=== PATIENT | male | born 1970 | race African-American/Black ===

== ENCOUNTER 2019-03-13 20:32 | Inpatient (IN) | payer MEDICAID, OTHER ==
[~2019-03-13] VITALS: Ht 177.8 cm; Wt 126.7 kg
[~2019-03-13 20:32] MED LIST: ABILIFY5 MG ORAL; ASACOL HD800 MG ORAL; FLAGYL500 MG ORAL; FOLIC ACID1 MG ORAL; HALDOL5 MG ORAL; LISINOPRIL10 MG ORAL; MONTELUKAST SOD10 MG ORAL; PANTOPRAZOLE SO40 MG ORAL; PREDNISONE20 M1 PO; PREDNISONE20 MG ORAL; QUETIAPINE FUMA50 MG ORAL; SULFASALAZINE500 MG ORAL
[2019-03-13 20:35] VITALS: BP 126/74
--- NOTE | 2019-03-13 20:37 | NUR ---
ED Nurse Note: Patient was BIBA from home due to abdominal pain, N/V/D. Per patient she was vomiting blood X 3 days, and blood in her stool X 3 days. AAO x4, anxious, VSS at this time, skin is dry, warm to touch.
--- NOTE | 2019-03-13 21:05 | NUR ---
ED Nurse Note: External Jugular line was placed by Dr. Alvarez on the left side, patient tolerated procedure well.
--- NOTE | 2019-03-13 21:12 | Emergency Room Report ---
History of Present Illness General Chief Complaint: Abdominal Pain Source: Patient Present Illness HPI This is a 48-year-old male with a history of Crohn disease. He also has previous laparotomy and bowel resection. He presents with chief complaint of abdominal pain and also with rectal bleeding. This is a chronic issue. He said he has fistula that required surgery before. Complain of generalized abdominal pain. Pain is 10 out of 10. No fever chills but has nausea and vomiting. Denies any trauma. Similar to previous exacerbation. Allergies: Coded Allergies: MORPHINE (Verified Allergy, Unknown, 04/29/16) PROCHLORPERAZINE (Verified Allergy, Unknown, 04/29/16) Patient History Past Medical History: see triage record, old chart reviewed Past Surgical History: other Pertinent Family History: none Social History: Denies: smoking Immunizations: other Reviewed Nursing Documentation: PMH: Agreed; PSxH: Agreed Nursing Documentation-PMH Hx Cardiac Problems: No - Hx of Cdiff (04/03/16) Hx Hypertension: Yes Hx Gastrointestinal Problems: Yes - CROHNS DISEASE Review of Systems Eye: Denies: eye pain, blurred vision ENT: Denies: ear pain, nose congestion, throat swelling Respiratory: Denies: cough, shortness of breath Cardiovascular: Denies: chest pain, palpitations Gastrointestinal: Reports: abdominal pain, nausea, vomiting; Denies: diarrhea Musculoskeletal: Denies: back pain, joint pain Skin: Denies: rash Neurological: Denies: headache, numbness Endocrine: Denies: increased thirst, increased urine Hematologic/Lymphatic: Denies: easy bruising All Other Systems: negative except mentioned in HPI Physical Exam Vital Signs Date Time Temp Pulse Resp B/P (MAP) Pulse Ox O2 Delivery O2 Flow Rate FiO2 03/13/19 20:19 98.2 115 16 126/74 (91) 98 Room Air Vitals with tachycardia Sp02 EP Interpretation: reviewed, normal General Appearance: well appearing, no apparent distress, alert Head: normocephalic, atraumatic Eyes: bilateral eye PERRL, bilateral eye EOMI ENT: hearing grossly normal, normal pharynx Neck: full range of motion, supple, no meningismus Respiratory: chest non-tender, lungs clear, normal breath sounds Cardiovascular #1: regular rate, rhythm, no murmur Gastrointestinal: normal bowel sounds, no mass, no organomegaly, no bruit, non- distended, tenderness - Soft but diffuse tenderness Musculoskeletal: back normal, gait/station normal, normal range of motion Psychiatric: mood/affect normal Skin: warm/dry Medical Decision Making Diagnostic Impression: Primary Impression: Crohns disease Qualified Codes: K50.911 - Crohn's disease, unspecified, with rectal bleeding ER Course Patient presents with abdominal pain with Crohn's exacerbation. He claimed that he has hematuria and rectal bleeding. He had history of fistula. CT scan unremarkable. Labs unremarkable except sodium. Patient given IV hydration. Suspect drug-seeking behavior. He has a history of cocaine abuse. Patient will be admitted for IV hydration and pain control. I discussed the case with Dr. Bullock who knows patient from previous admission at the hospitals. CT/MRI/US Diagnostic Results CT/MRI/US Diagnostic Results : Imaging Test Ordered: CT abdomen pelvis Impression Read by radiologist. No acute process. Last Vital Signs Date Time Temp Pulse Resp B/P (MAP) Pulse Ox O2 Delivery O2 Flow Rate FiO2 03/13/19 20:35 115 16 Room Air 03/13/19 20:35 98.2 126/74 98 Status: improved Disposition: ADMITTED INPATIENT Condition: Serious Jose Guadalupe Alvarez MD Mar 13, 2019 21:12
[2019-03-13] MEDS ORDERED: Solu-MEDROL 125mg Inj IVP ONE (21:15)
[2019-03-13] MEDS ORDERED: HYDROmorphone 1mg/ml Carpuject IVP ONE (21:45)
[2019-03-13 21:47] LABS: APPEARANCE,URINE CLOUDY; BILIRUBIN, URINE NEGATIVE (NEGATIVE); GLUCOSE, URINE (UA) NEGATIVE (NEGATIVE); KETONES,URINE NEGATIVE (NEGATIVE); LEUKOCYTE ESTERASE ,URINE 1+ (NEGATIVE); NITRITE,URINE NEGATIVE (NEGATIVE); PH,URINE 5 (4.5-8.0); PROTEIN,URINE 1+ (NEGATIVE); UROBILINOGEN,URINE NORMAL MG/DL (0.0-1.0)
[2019-03-13 21:48] LABS: COLOR,URINE YELLOW
[2019-03-13 21:59] LABS: BASOPHILS % (AUTO) 1.1 % (0.0-2.0); EOSINOPHILS % (AUTO) 2.4 % (0.0-3.0); HEMOGLOBIN 11.3 G/DL (14.2-18.0); LYMPHOCYTES % (AUTO) 22.9 % (20.0-45.0); MEAN CORPUSCULAR VOLUME 94 FL (80-99); MONOCYTES % (AUTO) 9.1 % (1.0-10.0); NEUTROPHILS % (AUTO) 64.5 % (45.0-75.0); PLATELET COUNT 267 K/UL (150-450); RED BLOOD COUNT 3.51 M/UL (4.70-6.10); RED CELL DISTRIBUTION WIDTH 11.8 % (11.6-14.8); WHITE BLOOD COUNT 10.5 K/UL (4.8-10.8)
[2019-03-13] MEDS ORDERED: Ertapenem 1 GM in NS 55 ML IV ONE (22:00)
[2019-03-13 22:06] LABS: ANION GAP 8 mmol/L (5-15); BLOOD UREA NITROGEN 16 mg/dL (7-18); CALCIUM 9.3 MG/DL (8.5-10.1); CARBON DIOXIDE 30 MMOL/L (21-32); CHLORIDE 110 MMOL/L (98-107); CREATININE 1.1 MG/DL (0.55-1.30); POTASSIUM 3.9 MMOL/L (3.5-5.1); SODIUM 148 MMOL/L (136-145)
[2019-03-13 22:11] LABS: ALANINE AMINOTRANSFERASE 31 U/L (12-78); ALBUMIN 3.3 G/DL (3.4-5.0); ALBUMIN/GLOBULIN RATIO 0.7 (1.0-2.7); ALKALINE PHOSPHATASE 63 U/L (46-116); ASPARTATE AMINO TRANSFERASE 16 U/L (15-37); BILIRUBIN,TOTAL 0.3 MG/DL (0.2-1.0)
[2019-03-13] MEDS ORDERED: DiphenhydrAMINE 50mg/ml Inj IVP ONE (22:15)
[2019-03-13 22:42] VITALS: BP 135/76
[2019-03-13] MEDS ORDERED: Ketorolac 30mg Inj IV ONE (23:30)
[2019-03-13 23:55] VITALS: BP 140/75
--- NOTE | 2019-03-13 23:55 | NUR ---
ED Nurse Note: Patient was admited to [facility] due to Crohn's exaserbation. AAO x4, VSS at this time, skin is intact warm to touch. Patient was transfered via gurney, with all belongings.
[2019-03-14 00:10] VITALS: BP 120/81
[2019-03-14] MEDS: HYDROmorphone 1mg/ml Carpuject IVP PRN ×6 (01:13→21:16)
[2019-03-14 04:02] VITALS: BP 122/74
--- NOTE | 2019-03-14 07:20 | NUR ---
HAND-OFF: Report given to Nikki Thrasher RN.
--- NOTE | 2019-03-14 07:30 | NUR ---
NURSE NOTES: Received pt from STEVE GALARZA. Pt is alert and orient x4. Pt is in RA, No SOB or acute respiratory distress noted. pt has intact iv access LEJ 18G SL. pt consumed 100% of breakfast and tolerate well. All needs attended, bed is locked and is in the lowest position. call light within easy reach. will continue to monitor.
[2019-03-14 08:00] VITALS: BP 149/93
[2019-03-14] MEDS: Lisinopril 10mg tab ORAL SCH (08:32)
[2019-03-14] MEDS: SulfASALAZine 500MG tab ORAL SCH ×3 (09:09→17:15)
--- NOTE | 2019-03-14 10:12 | Diagnostic Imaging Report ---
Indication: Abdominal pain Technique: Continuous helical transaxial imaging of the abdomen and pelvis was obtained from the lung bases to the pubic symphysis. No intravenous contrast was administered. Coronal 2-D reformats were also obtained. Automatic Exposure Control was utilized. Total Dose length Product (DLP): 1076.[address] Dose Index Volume (CTDIvol): 19.28 mGy Comparison: none Findings: Lung bases are clear. The left kidney is atrophic. 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 There is no hydronephrosis. Hypodensities in the left kidney are nonspecific but probably cystic. Gallbladder is noted. There is a tiny hernia in the anterior abdominal wall containing small bowel above the umbilicus. Previous surgery and rectosigmoid resection noted. Mild distended loop of bowel noted in the lower abdomen and pelvis probably representing a loop of small bowel which is also been partially resected. There is evidence of a left adrenal mass measuring about 1.5 cm. This is low-density and probably an adenoma. IMPRESSION: No acute findings appreciated. Evidence of previous partial small and large bowel resection. No evidence of bowel obstruction, abscess or other acute pathology. Small left adrenal mass likely adenoma. This may be confirmed on MRI. Atrophic left kidney with suggestion of multiple cysts. This may be confirmed or further evaluated with ultrasound. Slightly malrotated right kidney. Tiny supraumbilical hernia containing small bowel. [facility] has communicated the preliminary results to the Emergency Department. Their findings are largely concordant with this report. The CT scanner at [facility] is accredited by the [employer] and the scans are performed using dose optimization techniques as appropriate to a performed exam including Automatic Exposure control.
--- NOTE | 2019-03-14 11:28 | General Progress Note ---
Assessment/Plan Problem List: (1) C. difficile colitis ICD Codes: A04.72 - Enterocolitis due to Clostridium difficile, not specified as recurrent SNOMED: 026363452 (2) Crohns disease ICD Codes: K50.90 - Crohn's disease, unspecified, without complications SNOMED: 70360838 Qualifiers: Qualified Codes: K50.911 - Crohn's disease, unspecified, with rectal bleeding (3) Substance abuse ICD Codes: F19.10 - Other psychoactive substance abuse, uncomplicated SNOMED: 33536643 Assessment/Plan: ? h/o TB start steroids ESR/CRP iron panel fu labs Subjective ROS Limited/Unobtainable: Yes Allergies: Coded Allergies: MORPHINE (Verified Allergy, Unknown, 04/29/16) PROCHLORPERAZINE (Verified Allergy, Unknown, 04/29/16) Objective Last 24 Hour Vital Signs Date Time Temp Pulse Resp B/P (MAP) Pulse Ox O2 Delivery O2 Flow Rate FiO2 03/14/19 09:40 97.6 03/14/19 09:00 Room Air 03/14/19 08:32 149/93 03/14/19 08:00 97.6 92 20 149/93 (111) 96 03/14/19 04:02 98.0 100 18 122/74 (90) 99 03/14/19 00:15 Room Air 03/14/19 00:10 97.4 106 18 120/81 (94) 97 03/13/19 23:55 98.2 82 16 140/75 98 Room Air 03/13/19 23:55 98.2 82 16 140/75 98 Room Air 03/13/19 23:50 98.2 03/13/19 22:42 98.2 87 16 135/76 98 Room Air 03/13/19 22:25 98.2 03/13/19 20:35 115 16 Room Air 03/13/19 20:35 98.2 16 126/74 98 Room Air 03/13/19 20:19 98.2 115 16 126/74 (91) 98 Room Air Intake and Output 03/13/19 03/14/19 19:00 07:00 # Voids 3 Laboratory Tests 03/13/19 21:35: Urine Color Yellow, Urine Appearance Cloudy, Urine pH 5, Urine Specific [place] 1.015, Urine Protein 1+H, Urine Glucose (UA) Negative, Urine Ketones Negative, Urine Blood 5+H, Urine Nitrite Negative, Urine Bilirubin Negative, Urine Urobilinogen Normal, Urine Leukocyte Esterase 1+H, Urine RBC TntcH, Urine WBC 0- 2, Urine Squamous Epithelial Cells Occasional, Urine Bacteria ModerateH, Urine Opiates Screen Negative, Urine Barbiturates Screen Negative, Phencyclidine (PCP ) Screen Negative, Urine Amphetamines Screen Negative, Urine Benzodiazepines Screen Negative, Urine Cocaine Screen Negative, Urine Marijuana (THC) Screen Negative 03/13/19 21:50: White Blood Count 10.5, Red Blood Count 3.51L, Hemoglobin 11.3L, Hematocrit 33.0L, Mean Corpuscular Volume 94, Mean Corpuscular Hemoglobin 32.2H, Mean Corpuscular Hemoglobin Concent 34.2, Red Cell Distribution Width 11.8, Platelet Count 267, Mean Platelet Volume 6.4L, Neutrophils (%) (Auto) 64.5, Lymphocytes ( %) (Auto) 22.9, Monocytes (%) (Auto) 9.1, Eosinophils (%) (Auto) 2.4, Basophils (%) (Auto) 1.1, Sodium Level 148H, Potassium Level 3.9, Chloride Level 110H, Carbon Dioxide Level 30, Anion Gap 8, Blood Urea Nitrogen 16, Creatinine 1.1, Estimat Glomerular Filtration Rate > 60, Glucose Level 101, Calcium Level 9.3, Total Bilirubin 0.3, Aspartate Amino Transf (AST/SGOT) 16, Alanine Aminotransferase (ALT/SGPT) 31, Alkaline Phosphatase 63, Total Protein 7.9, Albumin 3.3L, Globulin 4.6, Albumin/Globulin Ratio 0.7L, Lipase 108 Height (Feet): 5 Height (Inches): 10.00 Weight (Pounds): 282 General Appearance: alert EENT: normal ENT inspection Neck: normal alignment Cardiovascular: normal rate Respiratory/Chest: lungs clear Abdomen: normal bowel sounds, non tender, soft Extremities: non-tender Tylor Weller MD Mar 14, 2019 11:28
--- NOTE | 2019-03-14 11:48 | NUR ---
*-* NO ISNURANCE INFORMATION IN THE BAR UNABLE TO SEND CLINICALS *-*
[2019-03-14 11:49] VITALS: BP 158/86
--- NOTE | 2019-03-14 13:23 | NUR ---
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
--- NOTE | 2019-03-14 14:00 | NUR ---
NURSE NOTES: Stool sample sent to lab waiting for result. will continue to monitor.
[2019-03-14] MEDS: Solu-MEDROL 40mg Inj IVP SCH ×2 (14:54→21:17)
--- NOTE | 2019-03-14 16:45 | History and Physical Report ---
DATE OF ADMISSION: 03/13/2019 HISTORY OF PRESENT ILLNESS: This is a 48-year-old female, transgender with a history of schizophrenia, depression, Crohn disease who presented to the hospital with abdominal pain. The patient reports that she has been told that she had a fistula as well. She reported abdominal pain and bloody stool. The patient is seen and worked up in the ER, admitted to the hospital for management and care. PAST MEDICAL HISTORY: Notable for depression, schizophrenia, Crohn disease. PAST SURGICAL HISTORY: None. SOCIAL HISTORY: No alcohol or tobacco usage. ALLERGIES: Listed to Compazine, Haldol, and morphine. REVIEW OF SYSTEMS: Denies any headaches, hematemesis, melena, hematochezia, night sweats, weight loss, abdominal pain, diarrhea, nausea, and hematuria. HOME MEDICATIONS: Wellbutrin XL 150 b.i.d. and Seroquel 100 b.i.d. PHYSICAL EXAMINATION: GENERAL: Reveals a 48-year-old female, transgender. HEENT: Unremarkable. LUNGS: Clear breath sounds bilaterally. ABDOMEN: Soft. NEUROLOGIC: Nonfocal. LABORATORY DATA: Lab testing is unremarkable with normal CBC and BMP. IMPRESSION: 1. Crohn's exacerbation. 2. Depression. 3. Schizophrenia. DISCUSSION: The patient has mild hyponatremia. I will provide with a clear liquid diet. Advance as tolerated. Continue Wellbutrin and Seroquel. The patient has been seen by GI and started on sulfasalazine as well as Solu-Medrol. We will follow carefully. The patient is also requesting Dilaudid, which I will provide however with low dose without Benadryl. Fidel Bullock M.D. DR: DOV JOB#: [id number] CC:
[2019-03-14] MEDS: BuPROPion SR 150mg tab ORAL SCH (17:15)
--- NOTE | 2019-03-14 19:18 | NUR ---
HAND-OFF: Report given to STEVE SAGE.
--- NOTE | 2019-03-14 19:40 | NUR ---
NURSE NOTES: Received report from STEVE Jordan. Patient A&Ox4. On room air, no signs of distress or labored breathing. IV intact, patent, and saline locked. Bed in lowest position with call light in reach. Will continue with plan of care.
[2019-03-14 20:00] VITALS: BP 137/72
[2019-03-15] VITALS: BP 135/81
[2019-03-15] MEDS: HYDROmorphone 1mg/ml Carpuject IVP PRN ×6 (01:22→21:33)
[2019-03-15 04:00] VITALS: BP 115/60
[2019-03-15] MEDS: Solu-MEDROL 40mg Inj IVP SCH ×3 (05:36→21:34)
--- NOTE | 2019-03-15 07:44 | NUR ---
HAND-OFF: Report given to STEVE Caldwell.
--- NOTE | 2019-03-15 07:47 | NUR ---
NURSE NOTES: Patient alert x4, on room air, no sign of distress and shortness of breath; no sign of chest pain; IV Left EJ 18G flushes well; bed at lowest position, side rails up x2, breaks engaged; call light within reach; will keep monitoring.
[2019-03-15 08:00] VITALS: BP 152/97
--- NOTE | 2019-03-15 08:21 | Pulmonology Progress Note ---
Assessment/Plan Assessment/Plan IMPRESSION: 1. Crohn's exacerbation. 2. Depression. 3. Schizophrenia. DISCUSSION: The patient has mild hypernatremia. I will provide with a clear liquid diet. Advance as tolerated. Continue Wellbutrin and Seroquel. The patient has been seen by GI and started on sulfasalazine as well as Solu-Medrol. I will follow carefully. The patient is also requesting Dilaudid, which I will provide however low dose without Benadryl. Subjective Interval Events: Continues to complain of pain and hematochezia Constitutional: Reports: no symptoms HEENT: Repors: no symptoms Respiratory: Reports: no symptoms Cardiovascular: Reports: no symptoms Gastrointestinal/Abdominal: Reports: no symptoms Allergies: Coded Allergies: MORPHINE (Verified Allergy, Unknown, 04/29/16) PROCHLORPERAZINE (Verified Allergy, Unknown, 04/29/16) Objective Last 24 Hour Vital Signs Date Time Temp Pulse Resp B/P (MAP) Pulse Ox O2 Delivery O2 Flow Rate FiO2 03/15/19 04:00 78 19 115/60 (78) 95 03/15/19 00:00 73 19 135/81 (99) 96 03/14/19 21:00 Room Air 03/14/19 20:00 87 19 137/72 (93) 95 03/14/19 17:44 98.2 03/14/19 11:49 98.2 97 20 158/86 (110) 95 03/14/19 09:00 Room Air 03/14/19 08:32 149/93 Intake and Output 03/14/19 03/15/19 18:59 06:59 Intake Total 2360 ml Balance 2360 ml Intake Oral 2360 ml # Voids 3 2 General Appearance: no acute distress HEENT: normocephalic Respiratory/Chest: chest wall non-tender Cardiovascular: normal peripheral pulses Abdomen: normal bowel sounds Microbiology Date/Time Source Procedure Growth Status 03/13/19 21:35 Urine,Clean Catch Urine Culture - Preliminary Mixed Urogenital Contaminants Resulted Current Medications Medications (Trade) Dose Ordered Sig/Kalani Route PRN Reason Start Time Stop Time Status Last Admin Dose Admin Bupropion HCl (Wellbutrin SR) 150 mg BID ORAL 03/14/19 18:00 04/13/19 17:59 03/14/19 17:15 Diphenhydramine HCl (Benadryl) 25 mg Q6H PRN ORAL Itching 03/14/19 14:30 04/13/19 14:29 03/14/19 17:14 Folic Acid (Folate) 1 mg DAILY ORAL 03/14/19 09:00 04/13/19 08:59 03/14/19 08:32 Hydromorphone HCl (Dilaudid) 1 mg Q4H PRN IVP Severe Pain (Pain Scale 7-10) 03/14/19 00:45 03/21/19 00:44 03/15/19 05:22 Lisinopril (Zestril) 10 mg DAILY ORAL 03/14/19 09:00 04/13/19 08:59 03/14/19 08:32 Methylprednisolone Sodium Succinate (Solu-MEDROL) 20 mg EVERY 8 HOURS IVP 03/14/19 14:00 04/13/19 13:59 03/15/19 05:36 Ondansetron HCl (Zofran) 4 mg Q6H PRN IVP Nausea & Vomiting 03/14/19 00:45 04/13/19 00:44 03/15/19 05:18 Pantoprazole (Protonix) 40 mg DAILY ORAL 03/14/19 09:00 04/13/19 08:59 03/14/19 08:32 Quetiapine Fumarate (SEROquel) 100 mg Q12HR ORAL 03/14/19 18:00 04/13/19 17:59 03/14/19 17:25 Sulfasalazine (Azulfidine) 1,000 mg TID ORAL 03/14/19 09:00 04/13/19 08:59 03/14/19 17:15 Fidel Bullock MD Mar 15, 2019 08:21
[2019-03-15 08:45] LABS: HEMOGLOBIN 10.8 G/DL (14.2-18.0); MEAN CORPUSCULAR VOLUME 99 FL (80-99); PLATELET COUNT 273 K/UL (150-450); RED BLOOD COUNT 3.35 M/UL (4.70-6.10); RED CELL DISTRIBUTION WIDTH 12.3 % (11.6-14.8); WHITE BLOOD COUNT 15.1 K/UL (4.8-10.8)
[2019-03-15 09:02] LABS: % IRON SATURATION 32 % (15-50); IRON 74 ug/dL (50-175); TOTAL IRON BINDING CAPACITY 231 ug/dL (250-450)
[2019-03-15] MEDS: SulfASALAZine 500MG tab ORAL SCH ×3 (09:19→17:22)
[2019-03-15] MEDS: BuPROPion SR 150mg tab ORAL SCH ×2 (09:20→17:22)
[2019-03-15] MEDS: Lisinopril 10mg tab ORAL SCH (09:20)
--- NOTE | 2019-03-15 09:46 | General Progress Note ---
Assessment/Plan Problem List: (1) C. difficile colitis ICD Codes: A04.72 - Enterocolitis due to Clostridium difficile, not specified as recurrent SNOMED: 174889175 (2) Crohns disease ICD Codes: K50.90 - Crohn's disease, unspecified, without complications SNOMED: 84509901 Qualifiers: Qualified Codes: K50.911 - Crohn's disease, unspecified, with rectal bleeding (3) Substance abuse ICD Codes: F19.10 - Other psychoactive substance abuse, uncomplicated SNOMED: 83771314 Assessment/Plan: ? h/o TB on steroids CRP>>> normal>>> doubt active flare>> will dc steroids tomorrow iron panel>> WNL fu labs Subjective ROS Limited/Unobtainable: Yes Allergies: Coded Allergies: MORPHINE (Verified Allergy, Unknown, 04/29/16) PROCHLORPERAZINE (Verified Allergy, Unknown, 04/29/16) Objective Last 24 Hour Vital Signs Date Time Temp Pulse Resp B/P (MAP) Pulse Ox O2 Delivery O2 Flow Rate FiO2 03/15/19 09:20 152/97 03/15/19 08:00 97.3 84 18 152/97 (115) 96 03/15/19 04:00 78 19 115/60 (78) 95 03/15/19 00:00 73 19 135/81 (99) 96 03/14/19 21:00 Room Air 03/14/19 20:00 87 19 137/72 (93) 95 03/14/19 17:44 98.2 03/14/19 11:49 98.2 97 20 158/86 (110) 95 Intake and Output 03/14/19 03/15/19 18:59 06:59 Intake Total 2360 ml Balance 2360 ml Intake Oral 2360 ml # Voids 3 2 Laboratory Tests 03/15/19 08:25: White Blood Count 15.1H, Red Blood Count 3.35L, Hemoglobin 10.8L, Hematocrit 33.0L, Mean Corpuscular Volume 99, Mean Corpuscular Hemoglobin 32.3H, Mean Corpuscular Hemoglobin Concent 32.8, Red Cell Distribution Width 12.3, Platelet Count 273, Mean Platelet Volume 7.2, Neutrophils (%) (Auto) , Lymphocytes (%) ( Auto) , Monocytes (%) (Auto) , Eosinophils (%) (Auto) , Basophils (%) (Auto) , Neutrophils % (Manual) [Pending], Lymphocytes % (Manual) [Pending], Platelet Estimate [Pending], Platelet Morphology [Pending], Erythrocyte Sedimentation Rate 97H, Iron Level 74, Total Iron Binding Capacity 231L, Percent Iron Saturation 32, Unsaturated Iron Binding 157, C-Reactive Protein, Quantitative < 0.4 Height (Feet): 5 Height (Inches): 10.00 Weight (Pounds): 279 General Appearance: alert EENT: normal ENT inspection Neck: supple Cardiovascular: normal rate Respiratory/Chest: decreased breath sounds Abdomen: normal bowel sounds, non tender, soft Extremities: non-tender Tylor Weller MD Mar 15, 2019 09:46
[2019-03-15 12:00] VITALS: BP 138/81
--- NOTE | 2019-03-15 13:53 | NUR ---
CASE MANAGE REVIEW SI: CROHN'S EXACERBATION VS: BP 152/97, P 84, T 97.3, RR 19, SpO2 95 WBC 15.1, RBC 3.35, H&H 10.8/33.0, TIBC 231 IS:DILAUDID 1mg IVP SOLU-MEDROL 20mg IVP BENADRYL 25mg ZESTRIL 10mg BUPROPION HCI 150mg FOLATE 1mg ZOFRAN 4mg MED/SURG STATUS
--- NOTE | 2019-03-15 14:13 | NUR ---
*-* INSURANCE *--* CLINICALS AND REVIEWS HAVE BEEN FAXED TO: [facility] PLEASE FAX THE REVIEW AND CLINICAL TO HD: [phone]
[2019-03-15 16:00] VITALS: BP 149/110
--- NOTE | 2019-03-15 19:14 | NUR ---
NURSE NOTES: pt episode of diarrhea, and pt requesting for colonoscopy, left msg to dr Weller
--- NOTE | 2019-03-15 19:40 | NUR ---
NURSE NOTES: Received report from STEVE Caldwell. Patient on room air. IV intact, patent, and saline locked. Bed in lowest position with call light in reach. Will continue with plan of care.
--- NOTE | 2019-03-15 19:40 | NUR ---
HAND-OFF: Report given to STEVE Emery.
[2019-03-15 20:00] VITALS: BP 142/90
[2019-03-16] VITALS: BP 130/85
[2019-03-16] MEDS: HYDROmorphone 1mg/ml Carpuject IVP PRN ×4 (01:20→21:00)
[2019-03-16] MEDS: Solu-MEDROL 40mg Inj IVP SCH ×3 (05:31→21:01)
--- NOTE | 2019-03-16 07:32 | NUR ---
NURSE NOTES: Patient awake, alert x4; on room air, no sign of shortness of breath, no sign of distress; no sing of chest pain; IV LEJ flushes well; side rails up x2, breaks engaged, bed at lowest position; call light within reach; will keep monitoring.
--- NOTE | 2019-03-16 07:39 | NUR ---
HAND-OFF: Report given to STEVE Caldwell.
[2019-03-16 08:00] VITALS: BP 134/83
--- NOTE | 2019-03-16 09:23 | Pulmonology Progress Note ---
Assessment/Plan Assessment/Plan IMPRESSION: 1. Crohn's exacerbation. 2. Depression. 3. Schizophrenia. DISCUSSION: Tolerating diet. Continue Wellbutrin and Seroquel. I will follow carefully. DC home Will give one dose Benadryl IV x 1 DC IV Subjective Interval Events: None new Constitutional: Reports: no symptoms HEENT: Repors: no symptoms Respiratory: Reports: no symptoms Cardiovascular: Reports: no symptoms Gastrointestinal/Abdominal: Reports: bloating Genitourinary: Reports: no symptoms Allergies: Coded Allergies: MORPHINE (Verified Allergy, Unknown, 04/29/16) PROCHLORPERAZINE (Verified Allergy, Unknown, 04/29/16) Objective Last 24 Hour Vital Signs Date Time Temp Pulse Resp B/P (MAP) Pulse Ox O2 Delivery O2 Flow Rate FiO2 03/16/19 08:00 98.1 90 18 134/83 (100) 95 03/16/19 06:01 98.6 03/16/19 00:00 98.6 99 20 130/85 (100) 97 03/15/19 21:00 Room Air 03/15/19 20:00 97.9 80 20 142/90 (107) 99 03/15/19 16:00 97.5 93 19 149/110 (123) 98 03/15/19 12:00 98.0 86 17 138/81 (100) 98 Intake and Output 03/15/19 03/16/19 18:59 06:59 Intake Total 2000 ml Balance 2000 ml Intake Oral 2000 ml # Voids 5 # Bowel Movements 2 General Appearance: no acute distress HEENT: normocephalic Respiratory/Chest: chest wall non-tender Cardiovascular: normal peripheral pulses, normal rate Abdomen: normal bowel sounds, soft, non tender Microbiology Date/Time Source Procedure Growth Status 03/14/19 14:00 Stool Clostridium difficile Toxin Assay - Final Complete 03/13/19 21:35 Urine,Clean Catch Urine Culture - Preliminary Strep Species, Gamma-Hemolytic Mixed Urogenital Contaminants Resulted Current Medications Medications (Trade) Dose Ordered Sig/Kalani Route PRN Reason Start Time Stop Time Status Last Admin Dose Admin Bupropion HCl (Wellbutrin SR) 150 mg BID ORAL 03/14/19 18:00 04/13/19 17:59 03/15/19 17:22 Diphenhydramine HCl (Benadryl) 25 mg Q6H PRN ORAL Itching 03/15/19 09:45 04/14/19 09:44 03/15/19 10:58 Folic Acid (Folate) 1 mg DAILY ORAL 03/14/19 09:00 04/13/19 08:59 03/15/19 09:19 Hydromorphone HCl (Dilaudid) 1 mg Q4H PRN IVP Severe Pain (Pain Scale 7-10) 03/14/19 00:45 03/21/19 00:44 03/16/19 05:31 Lisinopril (Zestril) 10 mg DAILY ORAL 03/14/19 09:00 04/13/19 08:59 03/15/19 09:20 Methylprednisolone Sodium Succinate (Solu-MEDROL) 20 mg EVERY 8 HOURS IVP 03/14/19 14:00 04/13/19 13:59 03/16/19 05:31 Ondansetron HCl (Zofran) 4 mg Q6H PRN IVP Nausea & Vomiting 03/14/19 00:45 04/13/19 00:44 03/15/19 21:34 Pantoprazole (Protonix) 40 mg DAILY ORAL 03/14/19 09:00 04/13/19 08:59 03/15/19 09:19 Quetiapine Fumarate (SEROquel) 100 mg Q12HR ORAL 03/14/19 18:00 04/13/19 17:59 03/15/19 21:33 Sulfasalazine (Azulfidine) 1,000 mg TID ORAL 03/14/19 09:00 04/13/19 08:59 03/15/19 17:22 Fidel Bullock MD Mar 16, 2019 09:23
[2019-03-16] MEDS ORDERED: DiphenhydrAMINE 50mg/ml Inj IVP SCH (09:25)
[2019-03-16] MEDS ORDERED: SEROQUEL100 MG ORAL (09:27)
[2019-03-16] MEDS ORDERED: NORCO 10-325 T1 EACH ORAL (09:27)
[2019-03-16] MEDS ORDERED: BUPROPION HCL150 M5 ORAL (09:27)
[2019-03-16] MEDS: SulfASALAZine 500MG tab ORAL SCH ×3 (09:42→17:27)
[2019-03-16] MEDS: BuPROPion SR 150mg tab ORAL SCH ×2 (09:42→17:26)
[2019-03-16] MEDS: Lisinopril 10mg tab ORAL SCH (09:43)
--- NOTE | 2019-03-16 10:14 | NUR ---
Social Service Note JACK met with patient to assess for homelessness. Patient was notified of discharge for today and informed MD that he was homeless. Patient did not indicate homelessness upon admission. Patient states he became homeless when his roommate of AIDS. Patient didn't want to provide details but indicated he was pushed out to leave. Patient states he has been residing in hotels and recuperative care centers. Patient stated he was recently in a recuperative care center in [place] but he has spoke with his insurance business analyst and she assured him that they will place him in a hotel or recuperative care center close to the [facility] where he will receive medical follow up with his physician's in the area. Patient also states he receives mental health oversight by [facility] program. Patient [employer] adult protective caseworker is Mckenna Quintana [phone]. Message left awaiting return call. JACK spoke with insurance KAMILAH Livingston [phone] who states health plan works with a recuperative care program in [place]. Patient's information faxed to [facility] [phone]. [facility] will call JACK with available bed, address and phone number. Will follow up.
--- NOTE | 2019-03-16 10:54 | NUR ---
CHARGE NURSE NOTES: Patient was noticed digging into the sharp container. When attempted to talk to the patient he said that looking for scissors because he is hearing the voices that telling him to kill himself. Removed sharp container from the room. Called Dr Bullock. Per Dr Bullock no psych consult. Received an order for sitter. Submitted. Called security. Nursing house cleaner supervisor notified
--- NOTE | 2019-03-16 11:10 | NUR ---
NURSE NOTES: Patient removed IV access; Charge nurse, Efren notified.
--- NOTE | 2019-03-16 13:27 | NUR ---
Social Service Note Follow up call placed to Yara [phone]. Awaiting return call.
--- NOTE | 2019-03-16 13:46 | NUR ---
*-* INSURANCE *--* UPDATED CLINICALS HAVE BEEN FAXED TO: [facility] PLEASE FAX THE REVIEW AND CLINICAL TO NO: [phone]
--- NOTE | 2019-03-16 14:33 | NUR ---
NURSE NOTES: Patient refused X-Ray Chest.
--- NOTE | 2019-03-16 14:33 | NUR ---
RADIOLOGY DEPT., PT REFUSES CHEST IMAGING EXAM.-P.DYE
--- NOTE | 2019-03-16 15:00 | NUR ---
Social Service Note JACK met with patient and updated him regarding insurance locating a [facility] program in [facility]. Patient will require a chest x-ray. Patient denying SI now that he is aware of impending dc plan to a recuperative care program. JACK spoke with Mckenna at [facility] [phone]. Mckenna states patient can be his own barrier to housing. Patient has been hospital hopping recently per Mckenna and has been dropped from services through there program as well due to non-willingness to participate and refusal of services. If bed is not available this afternoon. strategic planning manager Yara will follow up with JACK in am.
--- NOTE | 2019-03-16 15:05 | General Progress Note ---
Assessment/Plan Problem List: (1) C. difficile colitis ICD Codes: A04.72 - Enterocolitis due to Clostridium difficile, not specified as recurrent SNOMED: 122664000 (2) Crohns disease ICD Codes: K50.90 - Crohn's disease, unspecified, without complications SNOMED: 88393707 Qualifiers: Qualified Codes: K50.911 - Crohn's disease, unspecified, with rectal bleeding (3) Substance abuse ICD Codes: F19.10 - Other psychoactive substance abuse, uncomplicated SNOMED: 80616776 Assessment/Plan: ? h/o TB on steroids CRP>>> normal elevated ESR iron panel>> WNL per patient has recurrent bleed but not seen by nurses dc ordered by pmd fu labs Subjective ROS Limited/Unobtainable: Yes Allergies: Coded Allergies: MORPHINE (Verified Allergy, Unknown, 04/29/16) PROCHLORPERAZINE (Verified Allergy, Unknown, 04/29/16) Objective Last 24 Hour Vital Signs Date Time Temp Pulse Resp B/P (MAP) Pulse Ox O2 Delivery O2 Flow Rate FiO2 03/16/19 10:13 98.1 03/16/19 09:43 134/83 03/16/19 09:00 Room Air 03/16/19 08:00 98.1 90 18 134/83 (100) 95 03/16/19 00:00 98.6 99 20 130/85 (100) 97 03/15/19 21:00 Room Air 03/15/19 20:00 97.9 80 20 142/90 (107) 99 03/15/19 16:00 97.5 93 19 149/110 (123) 98 Intake and Output 03/15/19 03/16/19 19:00 07:00 Intake Total 2000 ml Balance 2000 ml Intake Oral 2000 ml # Voids 5 # Bowel Movements 2 Height (Feet): 5 Height (Inches): 10.00 Weight (Pounds): 279 General Appearance: alert EENT: PERRL/EOMI Neck: supple Cardiovascular: normal rate Respiratory/Chest: lungs clear Abdomen: non tender, soft Extremities: non-tender Tylro Weller MD Mar 16, 2019 15:05
--- NOTE | 2019-03-16 15:37 | Diagnostic Imaging Report ---
Indication: Dyspnea Comparison: None A single view chest radiograph was obtained. Findings: Cardiomediastinal appearance is within normal limits for age. The lungs are clear. Pulmonary vascularity is appropriate. The diaphragmatic contour is smooth and costophrenic angles are sharp. No pleural effusions are identified. The bones are unremarkable. Impression: No acute findings
--- NOTE | 2019-03-16 16:39 | NUR ---
DIRECTOR OF BUSINESS DEVELOPMENTSAMPLE CUTTER SI:C.DIF COLITIS . CROHN'S DISEASE VS: BP 134/83, P 90, T 98.1, RR 18, spO2 95 NO LABS TODAY CXR: NEGATIVE IS:ZESTRIL 10mg DILAUDID 1mG IVP SEROQUEL 100mg PROTONIX 40mg WELLBUTRIN 150mg SOLU-MEDROL 20mg IVP MED/SURG STATUS
--- NOTE | 2019-03-16 18:35 | NUR ---
NURSE NOTES: RN tried to get an IV on patient, couldn't succeeded. Charge nurse, Efren tried to get an IV on patient, couldn't succeeded. Nursing instant potato processing supervisor, Lizy is aware.
--- NOTE | 2019-03-16 19:30 | NUR ---
NURSE NOTES: patient received. patient in no acute distress at this time. patient complains of pain at this time. patient says pain is 10/10. patient had pulled out IV previous shift and the nurses were unable to get an IV. I let the patient know i would try and get one in. patient irritable and very upset because he wants his IV Dilaudid. patient ambulatory. patient bed in lowest position and locked. call light within reach will continue to monitor.
[2019-03-16 20:23] VITALS: BP 136/95
--- NOTE | 2019-03-16 20:50 | NUR ---
NURSE NOTES: IV was put in. patient calm and comfortable.
[2019-03-17] MEDS: HYDROmorphone 1mg/ml Carpuject IVP PRN ×6 (01:12→21:40)
[2019-03-17] MEDS: Solu-MEDROL 40mg Inj IVP SCH (05:19)
--- NOTE | 2019-03-17 07:27 | NUR ---
HAND-OFF: Report given to gypsy flor.
[2019-03-17 08:00] VITALS: BP 161/104
--- NOTE | 2019-03-17 08:10 | Pulmonology Progress Note ---
Assessment/Plan Assessment/Plan IMPRESSION: 1. Crohn's exacerbation. 2. Depression. 3. Schizophrenia. DISCUSSION: Tolerating diet. Continue Wellbutrin and Seroquel. DC home vs congregate living CXR negative Subjective Interval Events: CXR negative; doing well Constitutional: Reports: no symptoms HEENT: Repors: no symptoms Respiratory: Reports: no symptoms Cardiovascular: Reports: no symptoms Gastrointestinal/Abdominal: Reports: no symptoms Genitourinary: Reports: no symptoms Allergies: Coded Allergies: MORPHINE (Verified Allergy, Unknown, 04/29/16) PROCHLORPERAZINE (Verified Allergy, Unknown, 04/29/16) Objective Last 24 Hour Vital Signs Date Time Temp Pulse Resp B/P (MAP) Pulse Ox O2 Delivery O2 Flow Rate FiO2 03/17/19 05:50 98.9 03/16/19 21:00 Room Air 03/16/19 20:23 98.9 90 20 136/95 (109) 100 03/16/19 09:43 134/83 03/16/19 09:00 Room Air Intake and Output 03/16/19 03/17/19 19:00 07:00 Intake Total 840 ml Balance 840 ml Intake Oral 840 ml # Voids 3 General Appearance: no acute distress HEENT: normocephalic Respiratory/Chest: chest wall non-tender, lungs clear Cardiovascular: normal peripheral pulses, normal rate Abdomen: normal bowel sounds Microbiology Date/Time Source Procedure Growth Status 03/14/19 14:00 Stool Clostridium difficile Toxin Assay - Final Complete Current Medications Medications (Trade) Dose Ordered Sig/Kalani Route PRN Reason Start Time Stop Time Status Last Admin Dose Admin Bupropion HCl (Wellbutrin SR) 150 mg BID ORAL 03/14/19 18:00 04/13/19 17:59 03/16/19 17:26 Diphenhydramine HCl (Benadryl) 25 mg Q6H PRN ORAL Itching 03/15/19 09:45 04/14/19 09:44 03/16/19 21:00 Folic Acid (Folate) 1 mg DAILY ORAL 03/14/19 09:00 04/13/19 08:59 03/16/19 09:43 Hydromorphone HCl (Dilaudid) 1 mg Q4H PRN IVP Severe Pain (Pain Scale 7-10) 03/14/19 00:45 03/21/19 00:44 03/17/19 05:20 Lisinopril (Zestril) 10 mg DAILY ORAL 03/14/19 09:00 04/13/19 08:59 03/16/19 09:43 Methylprednisolone Sodium Succinate (Solu-MEDROL) 20 mg EVERY 8 HOURS IVP 03/14/19 14:00 04/13/19 13:59 03/17/19 05:19 Ondansetron HCl (Zofran) 4 mg Q6H PRN IVP Nausea & Vomiting 03/14/19 00:45 04/13/19 00:44 03/17/19 05:20 Pantoprazole (Protonix) 40 mg DAILY ORAL 03/14/19 09:00 04/13/19 08:59 03/16/19 09:42 Quetiapine Fumarate (SEROquel) 100 mg Q12HR ORAL 03/14/19 18:00 04/13/19 17:59 03/16/19 21:00 Sulfasalazine (Azulfidine) 1,000 mg TID ORAL 03/14/19 09:00 04/13/19 08:59 03/16/19 17:27 Fidel Bullock MD Mar 17, 2019 08:10
--- NOTE | 2019-03-17 08:19 | NUR ---
NURSE NOTES: Patient report received from STEVE Caldwell. Patient is awake and responsive, sitting in the bedside chair. IV access on the right pinky finger, saline locked. Call light is in reach. mateo
--- NOTE | 2019-03-17 08:36 | NUR ---
NURSE NOTES: Patient seems stable. No s/s of wanting to hurt self. Patient following commands. Dr. Bullock notified. New order received.
--- NOTE | 2019-03-17 08:46 | General Progress Note ---
Assessment/Plan Problem List: (1) C. difficile colitis ICD Codes: A04.72 - Enterocolitis due to Clostridium difficile, not specified as recurrent SNOMED: 452129202 (2) Crohns disease ICD Codes: K50.90 - Crohn's disease, unspecified, without complications SNOMED: 00865350 Qualifiers: Qualified Codes: K50.911 - Crohn's disease, unspecified, with rectal bleeding (3) Substance abuse ICD Codes: F19.10 - Other psychoactive substance abuse, uncomplicated SNOMED: 64999632 Assessment/Plan: ? h/o TB on steroids>>will dc sulfasalazine CRP>>> normal elevated ESR iron panel>> WNL per patient has recurrent bleed but not seen by nurses dc ordered by pmd fu labs Subjective ROS Limited/Unobtainable: Yes Allergies: Coded Allergies: MORPHINE (Verified Allergy, Unknown, 04/29/16) PROCHLORPERAZINE (Verified Allergy, Unknown, 04/29/16) Objective Last 24 Hour Vital Signs Date Time Temp Pulse Resp B/P (MAP) Pulse Ox O2 Delivery O2 Flow Rate FiO2 03/17/19 08:00 98.2 104 18 161/104 (123) 96 03/17/19 05:50 98.9 03/16/19 21:00 Room Air 03/16/19 20:23 98.9 90 20 136/95 (109) 100 03/16/19 09:43 134/83 03/16/19 09:00 Room Air Intake and Output 03/16/19 03/17/19 19:00 07:00 Intake Total 840 ml Balance 840 ml Intake Oral 840 ml # Voids 3 Height (Feet): 5 Height (Inches): 10.00 Weight (Pounds): 279 General Appearance: alert EENT: normal ENT inspection Neck: supple Cardiovascular: normal rate Respiratory/Chest: decreased breath sounds Abdomen: normal bowel sounds, non tender, soft Extremities: non-tender Tylor Weller MD Mar 17, 2019 08:46
[2019-03-17] MEDS: Lisinopril 10mg tab ORAL SCH (09:16)
[2019-03-17] MEDS: SulfASALAZine 500MG tab ORAL SCH ×3 (09:16→17:28)
[2019-03-17] MEDS: BuPROPion SR 150mg tab ORAL SCH ×2 (09:16→17:28)
--- NOTE | 2019-03-17 09:19 | NUR ---
SS note This Sw left a message on Insurance Yara TRIANA voicemail ([phone]) regarding pending placement [facility] (awaiting call back for placement location).
--- NOTE | 2019-03-17 10:56 | NUR ---
SS note Yara, Insurance CM returned this Sw call, will have placement in [facility] this afternoon; awaiting on confirmation from Yara at this time.
[2019-03-17 12:00] VITALS: BP 123/72
--- NOTE | 2019-03-17 13:44 | NUR ---
*-* INSURANCE *--* UPDATED CLINICALS HAVE BEEN FAXED TO: [facility] PLEASE FAX THE REVIEW AND CLINICAL TO MH: [phone]
--- NOTE | 2019-03-17 15:23 | NUR ---
RD ASSESSMENT & RECOMMENDATIONS SEE CARE ACTIVITY FOR COMPLETE ASSESSMENT DAILY ESTIMATED NEEDS: Needs based on Obesity/ 91kg abw 20-22 kcals/kg 0778-2733 total kcals 1-1.2 g protein/kg 91-109 g total protein 25-30 mL/kg 7705-3085 total fluid mLs NUTRITION DIAGNOSIS: Altered GI function R/T Crohn's exacerbation as evidenced by pt admitted w/ c/o abdominal pain, N/V/D, now resolved. CURRENT DIET:REGULAR PO DIET RECOMMENDATIONS: SOFT, LOW FIBER/ LOW RESIDUE diet ADDITIONAL RECOMMENDATIONS: * Standing wt for accurate CBW -> weekly wt monitoring given obesity * Monitor PO tolerance
--- NOTE | 2019-03-17 15:28 | NUR ---
ENVIRONMENTAL PROGRAMS SPECIALIST NOTES FAXED CHEST X-RAY TO [facility] [phone]. [facility] POSSIBLE PLACEMENT TODAY.
--- NOTE | 2019-03-17 15:31 | NUR ---
ZINC ETCHERCAR STORER SI:CROHN'S DISEASE VS: BP 161/104, P 104, T 98.2, RR 18, SpO2 96 NO LABS TODAY IS:SULFASALAZINE 1,000mg DILAUDID 1mg IVP ZOFRAN 4mg IVP ZESTRIL 10mg SOLU-MEDROL 20mg IVP MED/SURG STATUS
[2019-03-17 16:00] VITALS: BP 133/84
--- NOTE | 2019-03-17 19:27 | NUR ---
HAND-OFF: Report given to STEVE Roper.
--- NOTE | 2019-03-17 19:36 | NUR ---
NURSE NOTES: Received report from STEVE Ulloa and STEVE Membreno. Patient A&OX4. On room air, no signs of distress or labored breathing. IV intact, patent, and saline locked. Be din lowest position with call light in reach. Will continue with plan of care.
[2019-03-17 20:00] VITALS: BP 129/80
[2019-03-18] VITALS: BP 123/68
[2019-03-18] MEDS: HYDROmorphone 1mg/ml Carpuject IVP PRN ×9 (01:49→23:21)
[2019-03-18 04:00] VITALS: BP 106/66
--- NOTE | 2019-03-18 07:51 | NUR ---
NURSE NOTES: received report from STEVE Roper. patient in bed. a&ox4. verbally responsive. no respiratory distress noted. no c/o pain at this time. IV on RH intact. bed in the lowest position. call light within reach. will provide plan of care.
[2019-03-18 08:00] VITALS: BP 130/68
--- NOTE | 2019-03-18 08:03 | NUR ---
HAND-OFF: Report given to STEVE Harley.
--- NOTE | 2019-03-18 08:06 | Pulmonology Progress Note ---
Assessment/Plan Assessment/Plan IMPRESSION: 1. Crohn's exacerbation. 2. Depression. 3. Schizophrenia. DISCUSSION: Tolerating diet. Continue Wellbutrin and Seroquel. DC home vs congregate living CXR negative Subjective Interval Events: None new Constitutional: Reports: no symptoms HEENT: Repors: no symptoms Respiratory: Reports: no symptoms Cardiovascular: Reports: no symptoms Gastrointestinal/Abdominal: Reports: no symptoms Allergies: Coded Allergies: MORPHINE (Verified Allergy, Unknown, 04/29/16) PROCHLORPERAZINE (Verified Allergy, Unknown, 04/29/16) Objective Last 24 Hour Vital Signs Date Time Temp Pulse Resp B/P (MAP) Pulse Ox O2 Delivery O2 Flow Rate FiO2 03/18/19 04:00 92 18 106/66 (79) 97 03/18/19 00:00 97.6 107 20 123/68 (86) 96 03/17/19 21:00 Room Air 03/17/19 20:00 97.9 102 18 129/80 (96) 95 03/17/19 16:00 97.6 113 18 133/84 (100) 95 03/17/19 12:00 98.0 99 18 123/72 (89) 95 03/17/19 09:16 161/104 03/17/19 09:00 Room Air Intake and Output 03/17/19 03/18/19 19:00 07:00 Intake Total 840 ml 240 ml Balance 840 ml 240 ml Intake Oral 840 ml 240 ml # Voids 4 3 General Appearance: no acute distress HEENT: normocephalic Respiratory/Chest: chest wall non-tender, lungs clear Cardiovascular: normal peripheral pulses, normal rate Abdomen: normal bowel sounds Current Medications Medications (Trade) Dose Ordered Sig/Kalani Route PRN Reason Start Time Stop Time Status Last Admin Dose Admin Bupropion HCl (Wellbutrin SR) 150 mg BID ORAL 03/14/19 18:00 04/13/19 17:59 03/17/19 17:28 Diphenhydramine HCl (Benadryl) 25 mg Q6H PRN ORAL Itching 03/15/19 09:45 04/14/19 09:44 03/18/19 06:05 Folic Acid (Folate) 1 mg DAILY ORAL 03/14/19 09:00 04/13/19 08:59 03/17/19 09:26 Hydromorphone HCl (Dilaudid) 1 mg Q4H PRN IVP Severe Pain (Pain Scale 7-10) 03/14/19 00:45 03/21/19 00:44 03/18/19 06:06 Lisinopril (Zestril) 10 mg DAILY ORAL 03/14/19 09:00 04/13/19 08:59 03/17/19 09:16 Ondansetron HCl (Zofran) 4 mg Q6H PRN IVP Nausea & Vomiting 03/14/19 00:45 04/13/19 00:44 03/17/19 21:53 Pantoprazole (Protonix) 40 mg DAILY ORAL 03/14/19 09:00 04/13/19 08:59 03/17/19 09:16 Quetiapine Fumarate (SEROquel) 100 mg Q12HR ORAL 03/14/19 18:00 04/13/19 17:59 03/17/19 21:39 Sulfasalazine (Azulfidine) 1,000 mg TID ORAL 03/14/19 09:00 04/13/19 08:59 03/17/19 17:28 Fidel Bullock MD Mar 18, 2019 08:06
[2019-03-18] MEDS: Lisinopril 10mg tab ORAL SCH (09:16)
[2019-03-18] MEDS: BuPROPion SR 150mg tab ORAL SCH ×2 (09:16→17:10)
[2019-03-18] MEDS: SulfASALAZine 500MG tab ORAL SCH ×3 (09:16→17:10)
[2019-03-18 12:00] VITALS: BP 138/72
--- NOTE | 2019-03-18 13:32 | NUR ---
NURSE NOTES: patient aked dilaudid 1mg for pain. noticed IV on RH 24g was leaking while administering medication. wasted dialudid 1mg, got witness Lita/charge nurse@[email or web address]. reinsert IV on LH 24g. administered dilaudid 1mg via IV @1045.
[2019-03-18 16:00] VITALS: BP 108/70
--- NOTE | 2019-03-18 16:12 | NUR ---
POLE SANDER OPERATORCONTINUOUS ABSORPTION PROCESS OPERATOR SI:CROHN'S DISEASE T 98 HR 82 RR 20 B/P 138/72 SATS 99% ON RA NO LABS TODAY IS:SULFASALAZINE 1,000mg DILAUDID 1mg IVP ZOFRAN 4mg IVP ZESTRIL 10mg SOLU-MEDROL 20mg IVP MED/SURG STATUS
--- NOTE | 2019-03-18 19:47 | NUR ---
HAND-OFF: Report given to STEVE Puentes.
[2019-03-18 20:00] VITALS: BP 99/61
--- NOTE | 2019-03-18 20:00 | NUR ---
NURSE NOTES: PATIENT IN BED. A/O X 4, ON RA, NO SOB, NO ACUTE DISTRESS. BED IN LOWEST POSITION, LOCKED, ALARMS ON. CALL LIGHT IN REACH. NOTED L HAND IV INTACT BUT FLUSHES SLOWLY. ASKED PATIENT FOR NEW IV INSERTION BUT PATIENT REFUSED. WILL ATTEMPT ANOTHER IV INSERTION LATER.
--- NOTE | 2019-03-18 22:03 | General Progress Note ---
Assessment/Plan Assessment/Plan: Assessment - diarrhea - C Diff (-) - obesity - self reported h/o Crohns diseae - anemia Recommend - observe off steroids - wean off nartotics - po as tolerated - OOB Subjective Allergies: Coded Allergies: MORPHINE (Verified Allergy, Unknown, 04/29/16) PROCHLORPERAZINE (Verified Allergy, Unknown, 04/29/16) Subjective c/o diarrhea no hematochezia itching from narcotics Objective Last 24 Hour Vital Signs Date Time Temp Pulse Resp B/P (MAP) Pulse Ox O2 Delivery O2 Flow Rate FiO2 03/18/19 21:00 Room Air 03/18/19 20:00 98.1 95 19 99/61 (74) 94 03/18/19 16:00 98.4 107 20 108/70 (83) 99 03/18/19 12:00 98.0 82 20 138/72 (94) 99 03/18/19 09:16 130/68 03/18/19 09:00 Room Air 03/18/19 08:00 97.2 85 20 130/68 (88) 99 03/18/19 04:00 92 18 106/66 (79) 97 03/18/19 00:00 97.6 107 20 123/68 (86) 96 Intake and Output 03/17/19 03/18/19 19:00 07:00 Intake Total 840 ml 240 ml Balance 840 ml 240 ml Intake Oral 840 ml 240 ml # Voids 4 3 Height (Feet): 5 Height (Inches): 10.00 Weight (Pounds): 279 Objective obese NCAT supple CTA RR abd soft no edema Mihaela Holden MD Mar 18, 2019 22:03
--- NOTE | 2019-03-19 | NUR ---
NURSE NOTES: L HAND IV INTACT, PATENT BUT RN ATTEMPT TO GET ANOTHER BACKUP IV ACCESS. FAILED THE FIRST ATTEMPT AND PATIENT REFUSED ANOTHER INSERTION. PATIENT STATED, "THIS IV WORKING FINE. I DON'T WANT TO GET POKE AGAIN!" EXPLAINED RISK AND BENEFIT BUT PATIENT STILL REFUSED. RE-TAPED IV ON L HAND AND REMIND PATENT TO HANDLE GENTLY. PATIENT VERBALIZED UNDERSTANDING.
[2019-03-19] MEDS: HYDROmorphone 1mg/ml Carpuject IVP PRN ×6 (03:17→22:46)
[2019-03-19 04:00] VITALS: BP 111/61
--- NOTE | 2019-03-19 07:24 | NUR ---
HAND-OFF: Report given to Bernadette WILSON.
--- NOTE | 2019-03-19 07:33 | NUR ---
NURSE NOTES: Received report from STEVE Puentes. Pt sitting at edge of bed, talkative, no complaints of pain at this time, stating breakfast was incorrect order, RN called [facility] for pt's requested meal, bed in lowest position, call light within reach, discussed plan of care and next pain medication scheduled time.
[2019-03-19 08:00] VITALS: BP 90/53
[2019-03-19] MEDS: BuPROPion SR 150mg tab ORAL SCH ×2 (08:21→17:01)
[2019-03-19] MEDS: SulfASALAZine 500MG tab ORAL SCH ×3 (08:21→17:02)
[2019-03-19] MEDS: Lisinopril 10mg tab ORAL SCH (08:22)
[2019-03-19] MEDS ORDERED: Prep H Ointment 57gm RECTAL PRN (10:45)
--- NOTE | 2019-03-19 11:03 | Pulmonology Progress Note ---
Assessment/Plan Assessment/Plan IMPRESSION: 1. Crohn's exacerbation. 2. Depression. 3. Schizophrenia. DISCUSSION: Tolerating diet. Continue Wellbutrin and Seroquel. DC home vs congregate living CXR negative Subjective Interval Events: None Constitutional: Reports: no symptoms HEENT: Repors: no symptoms Respiratory: Reports: no symptoms Cardiovascular: Reports: no symptoms Gastrointestinal/Abdominal: Reports: no symptoms Allergies: Coded Allergies: MORPHINE (Verified Allergy, Unknown, 04/29/16) PROCHLORPERAZINE (Verified Allergy, Unknown, 04/29/16) Objective Last 24 Hour Vital Signs Date Time Temp Pulse Resp B/P (MAP) Pulse Ox O2 Delivery O2 Flow Rate FiO2 03/19/19 09:00 Room Air 03/19/19 08:22 90/53 03/19/19 08:00 98.5 101 20 90/53 (65) 97 03/19/19 07:42 98.5 03/19/19 04:00 98.3 95 19 111/61 (78) 97 03/18/19 21:00 Room Air 03/18/19 20:00 98.1 95 19 99/61 (74) 94 03/18/19 16:00 98.4 107 20 108/70 (83) 99 03/18/19 12:00 98.0 82 20 138/72 (94) 99 Intake and Output 03/18/19 03/19/19 19:00 07:00 Intake Total 1320 ml 1500 ml Output Total 4 ml 4 ml Balance 1316 ml 1496 ml Intake Oral 1320 ml 1500 ml Output Urine Total 4 ml 4 ml General Appearance: no acute distress HEENT: normocephalic Respiratory/Chest: chest wall non-tender, lungs clear Cardiovascular: normal peripheral pulses, normal rate Abdomen: normal bowel sounds Current Medications Medications (Trade) Dose Ordered Sig/Kalani Route PRN Reason Start Time Stop Time Status Last Admin Dose Admin Bupropion HCl (Wellbutrin SR) 150 mg BID ORAL 03/14/19 18:00 04/13/19 17:59 03/19/19 08:21 Diphenhydramine HCl (Benadryl) 25 mg Q6H PRN ORAL Itching 03/15/19 09:45 04/14/19 09:44 03/18/19 06:05 Folic Acid (Folate) 1 mg DAILY ORAL 03/14/19 09:00 04/13/19 08:59 03/19/19 08:22 Hydromorphone HCl (Dilaudid) 1 mg Q4H PRN IVP Severe Pain (Pain Scale 7-10) 03/14/19 00:45 03/21/19 00:44 03/19/19 07:12 Lisinopril (Zestril) 10 mg DAILY ORAL 03/14/19 09:00 04/13/19 08:59 03/18/19 09:16 Ondansetron HCl (Zofran) 4 mg Q6H PRN IVP Nausea & Vomiting 03/14/19 00:45 04/13/19 00:44 03/18/19 10:45 Pantoprazole (Protonix) 40 mg DAILY ORAL 03/14/19 09:00 04/13/19 08:59 03/19/19 08:22 Phenyleph/Shark Oil/Glycerin/ Petrol (Preparation H) 1 applic BID PRN RECTAL Hemorroidal Pain 03/19/19 10:45 04/18/19 10:44 Quetiapine Fumarate (SEROquel) 100 mg Q12HR ORAL 03/14/19 18:00 04/13/19 17:59 03/19/19 08:22 Sulfasalazine (Azulfidine) 1,000 mg TID ORAL 03/14/19 09:00 04/13/19 08:59 03/19/19 08:21 Fidel Bullock MD Mar 19, 2019 11:03
[2019-03-19 11:09] VITALS: BP_SYST 113; BP_DIAS 7; BP_DIAS 73
[2019-03-19 12:00] VITALS: BP 117/73
[2019-03-19 16:00] VITALS: BP 111/65
--- NOTE | 2019-03-19 16:23 | General Progress Note ---
Assessment/Plan Assessment/Plan: Assessment - diarrhea - C Diff (-) - obesity - self reported h/o Crohns diseae - anemia - hemorrhoid pain Recommend - observe off steroids - wean off narcotics - topical anal Rx - po as tolerated - OOB Subjective Allergies: Coded Allergies: MORPHINE (Verified Allergy, Unknown, 04/29/16) PROCHLORPERAZINE (Verified Allergy, Unknown, 04/29/16) Subjective feels OK c/o hemorrhoid pain Objective Last 24 Hour Vital Signs Date Time Temp Pulse Resp B/P (MAP) Pulse Ox O2 Delivery O2 Flow Rate FiO2 03/19/19 15:30 96.6 03/19/19 12:00 96.6 102 20 117/73 (88) 94 03/19/19 11:09 119 18 113/73 (86) 03/19/19 09:00 Room Air 03/19/19 08:22 90/53 03/19/19 08:00 98.5 101 20 90/53 (65) 97 03/19/19 04:00 98.3 95 19 111/61 (78) 97 03/18/19 21:00 Room Air 03/18/19 20:00 98.1 95 19 99/61 (74) 94 Intake and Output 03/18/19 03/19/19 19:00 07:00 Intake Total 1320 ml 1500 ml Output Total 4 ml 4 ml Balance 1316 ml 1496 ml Intake Oral 1320 ml 1500 ml Output Urine Total 4 ml 4 ml Height (Feet): 5 Height (Inches): 10.00 Weight (Pounds): 279 Objective obese NCAT supple CTA RR abd soft no edema Mihaela Holden MD Mar 19, 2019 16:23
--- NOTE | 2019-03-19 19:20 | NUR ---
HAND-OFF: Report given to STEVE Puentes.
[2019-03-19 20:00] VITALS: BP 106/64
--- NOTE | 2019-03-19 20:00 | NUR ---
NURSE NOTES: PATIENT SITTING ON SIDE OF BED. ON RA, NO SOB, NO ACUTE DISTRESS. STILL COMPLAINTS PAIN 10/10 ASKING FOR PAIN MED. REMINDED ABOUT TIME OF NEXT DOSE, PATIENT VERBALIZED UNDERSTANDING BUT UPSET. IV ON L HAND INTACT, PATENT. ASKED FOR ANOTHER INSERTION FOR BACK UP ACCESS BUT PATIENT REFUSED. BED IN LOWEST POSITION, LOCKED, ALARMS ON. CALL LIGHT IN REACH.
[2019-03-20] VITALS: BP 101/54
[2019-03-20] MEDS: HYDROmorphone 1mg/ml Carpuject IVP PRN ×6 (02:57→23:07)
[2019-03-20 04:00] VITALS: BP 100/51
--- NOTE | 2019-03-20 07:25 | NUR ---
HAND-OFF: Report given to Zaida WILSON.
--- NOTE | 2019-03-20 07:30 | NUR ---
NURSE NOTES: Pt resting in bed. A/o x 4, complained of abd pain 3/10. no SOB. will continue to monitor.
[2019-03-20 08:00] VITALS: BP 125/64
--- NOTE | 2019-03-20 08:13 | NUR ---
SUPERVISOR TREE TRIMMINGNETWORK OPERATIONS LEAD SI:CROHN'S EXACERBATION VS: BP 126/79, P 109, T 97.5, RR 19, SpO2 95 IS:ZESTRIL 10mg PROTONIX 40mg FOLATE 1mg ZOFRAN 4mg IVP DILAUDID 1mg IVP MED/SURG STATUS
[2019-03-20] MEDS: Lisinopril 10mg tab ORAL SCH (08:39)
[2019-03-20] MEDS: SulfASALAZine 500MG tab ORAL SCH ×5 (08:40→17:37)
[2019-03-20] MEDS: BuPROPion SR 150mg tab ORAL SCH ×4 (08:40→17:37)
--- NOTE | 2019-03-20 08:50 | Pulmonology Progress Note ---
Assessment/Plan Assessment/Plan IMPRESSION: 1. Crohn's exacerbation. 2. Depression. 3. Schizophrenia. DISCUSSION: Tolerating diet. Continue Wellbutrin and Seroquel. DC home vs congregate living CXR negative Subjective Interval Events: None new Constitutional: Reports: no symptoms HEENT: Repors: no symptoms Respiratory: Reports: no symptoms Cardiovascular: Reports: no symptoms Gastrointestinal/Abdominal: Reports: no symptoms Allergies: Coded Allergies: MORPHINE (Verified Allergy, Unknown, 04/29/16) PROCHLORPERAZINE (Verified Allergy, Unknown, 04/29/16) Objective Last 24 Hour Vital Signs Date Time Temp Pulse Resp B/P (MAP) Pulse Ox O2 Delivery O2 Flow Rate FiO2 03/20/19 08:39 125/64 03/20/19 08:00 95 125/64 (84) 03/20/19 04:00 97.8 99 19 100/51 (67) 96 03/20/19 00:00 98.0 101 20 101/54 (70) 95 03/19/19 21:00 Room Air 03/19/19 20:00 98.2 104 20 106/64 (78) 95 03/19/19 16:00 98.5 110 20 111/65 (80) 96 03/19/19 15:30 96.6 03/19/19 12:00 96.6 102 20 117/73 (88) 94 03/19/19 11:09 119 18 113/73 (86) 03/19/19 09:00 Room Air Intake and Output 03/19/19 03/20/19 19:00 07:00 Intake Total 3200 ml 2000 ml Balance 3200 ml 2000 ml Intake Oral 2400 ml 2000 ml Other 800 ml # Voids 6 6 # Bowel Movements 4 General Appearance: no acute distress HEENT: normocephalic Respiratory/Chest: chest wall non-tender, lungs clear Cardiovascular: normal peripheral pulses, normal rate Abdomen: normal bowel sounds Current Medications Medications (Trade) Dose Ordered Sig/Kalani Route PRN Reason Start Time Stop Time Status Last Admin Dose Admin Bupropion HCl (Wellbutrin SR) 150 mg BID ORAL 03/14/19 18:00 04/13/19 17:59 03/20/19 08:40 Diphenhydramine HCl (Benadryl) 25 mg Q6H PRN ORAL Itching 03/15/19 09:45 04/14/19 09:44 03/20/19 06:55 Folic Acid (Folate) 1 mg DAILY ORAL 03/14/19 09:00 04/13/19 08:59 03/20/19 08:40 Hydromorphone HCl (Dilaudid) 1 mg Q4H PRN IVP Severe Pain (Pain Scale 7-10) 03/14/19 00:45 03/21/19 00:44 03/20/19 06:55 Lisinopril (Zestril) 10 mg DAILY ORAL 03/14/19 09:00 04/13/19 08:59 03/20/19 08:39 Ondansetron HCl (Zofran) 4 mg Q6H PRN IVP Nausea & Vomiting 03/14/19 00:45 04/13/19 00:44 03/19/19 15:19 Pantoprazole (Protonix) 40 mg DAILY ORAL 03/14/19 09:00 04/13/19 08:59 03/20/19 08:40 Phenyleph/Shark Oil/Glycerin/ Petrol (Preparation H) 1 applic BID PRN RECTAL Hemorroidal Pain 03/19/19 10:45 04/18/19 10:44 03/19/19 11:35 Quetiapine Fumarate (SEROquel) 100 mg Q12HR ORAL 03/14/19 18:00 04/13/19 17:59 03/20/19 08:39 Sulfasalazine (Azulfidine) 1,000 mg TID ORAL 03/14/19 09:00 04/13/19 08:59 03/20/19 08:40 Fidel Bullock MD Mar 20, 2019 08:50
--- NOTE | 2019-03-20 10:25 | NUR ---
Social Service Note Faxed updated progress notes to Dee from [facility] [place] for placement [phone] (f).
--- NOTE | 2019-03-20 11:43 | GI Progress Note ---
Assessment/Plan Problems: (1) C. difficile colitis ICD Codes: A04.72 - Enterocolitis due to Clostridium difficile, not specified as recurrent SNOMED: 840990120 (2) Substance abuse ICD Codes: F19.10 - Other psychoactive substance abuse, uncomplicated SNOMED: 01211056 (3) Crohns disease ICD Codes: K50.90 - Crohn's disease, unspecified, without complications SNOMED: 42314217 Qualifiers: Qualified Codes: K50.911 - Crohn's disease, unspecified, with rectal bleeding Status: unchanged Status Narrative Discussed with Dr. Weller. Assessment/Plan Assessment - diarrhea - C Diff (-) - obesity - self reported h/o Crohns diseae - anemia - hemorrhoid pain - drug seeking behavior Recommend - observe off steroids - wean off narcotics - topical anal Rx - po as tolerated - OOB - okay for DC per GI standpoint The patient was seen and examined at bedside and all new and available data was reviewed in the patients chart. I agree with the above findings, impression and plan. (Patient seen earlier today. Signature stamp does not reflect patient encounter time.). - Tylor Weller MD Subjective Subjective Still has complaint of abdominal pain and diarrhea Objective Last 24 Hour Vital Signs Date Time Temp Pulse Resp B/P (MAP) Pulse Ox O2 Delivery O2 Flow Rate FiO2 03/20/19 11:30 97.8 03/20/19 09:00 Room Air 03/20/19 08:39 125/64 03/20/19 08:00 95 125/64 (84) 03/20/19 04:00 97.8 99 19 100/51 (67) 96 03/20/19 00:00 98.0 101 20 101/54 (70) 95 03/19/19 21:00 Room Air 03/19/19 20:00 98.2 104 20 106/64 (78) 95 03/19/19 16:00 98.5 110 20 111/65 (80) 96 03/19/19 12:00 96.6 102 20 117/73 (88) 94 Intake and Output 03/19/19 03/20/19 19:00 07:00 Intake Total 3200 ml 2000 ml Balance 3200 ml 2000 ml Intake Oral 2400 ml 2000 ml Other 800 ml # Voids 6 6 # Bowel Movements 4 Height (Feet): 5 Height (Inches): 10.00 Weight (Pounds): 279 General Appearance: WD/WN, no apparent distress, alert Cardiovascular: normal rate Respiratory/Chest: normal breath sounds, no respiratory distress Abdominal Exam: normal bowel sounds, non tender, soft Extremities: normal range of motion, non-tender Noreen Alvarez NP Mar 20, 2019 11:43
[2019-03-20] MEDS ORDERED: DiphenhydrAMINE 50mg/ml Inj IVP SCH (11:45)
[2019-03-20 12:00] VITALS: BP 114/81
--- NOTE | 2019-03-20 15:28 | NUR ---
NURSE NOTES: Pts IV out, pt refused new IV insert. Will continue to monitor.
[2019-03-20 16:00] VITALS: BP 115/85
--- NOTE | 2019-03-20 18:29 | NUR ---
Pt refused DC today. new IV inserted. will continue to monitor.
--- NOTE | 2019-03-20 19:29 | NUR ---
HAND-OFF: Report given to Joaquina WILSON.
[2019-03-20 20:00] VITALS: BP 126/79
--- NOTE | 2019-03-20 20:03 | NUR ---
NURSE NOTES: Received patient in bed, awake, alert, oriented, ambulatory with steady gate, no acute distress noted, call light is within reach, bed is in low position, locked and alarm is on, no acute distress noted or reported, VSS, afebrile. Will continue to monitor for safety and comfort.
[2019-03-21] VITALS: BP 129/77
[2019-03-21] MEDS: HYDROmorphone 1mg/ml Carpuject IVP PRN ×2 (03:24→07:45)
[2019-03-21 04:00] VITALS: BP 119/71
--- NOTE | 2019-03-21 07:22 | NUR ---
HAND-OFF: Report given to Lacey WILSON/Haseeb WILSON.
--- NOTE | 2019-03-21 07:58 | NUR ---
Nurse Note Handoff received from STEVE Kunz. Patient sitting in bedside chair. Left arm IV site, clean dry and intact.
[2019-03-21 08:00] VITALS: BP 140/99
--- NOTE | 2019-03-21 08:09 | NUR ---
SLOPE TENDERTELEPHONE LINEMAN SI:CROHN'S EXACERBATION VS: BP 106/64, P 119, T 96.6, RR 20, SpO2 94 IS:ZESTRIL 10mg ZOFRAN 4mg IVP DILAUDID 1mg IVP MED/SURG STATUS Addendum: 03/21/19 at 0816 by Nafisa Culp LVN THE ABOVE REVIEW IS FOR 03/19
--- NOTE | 2019-03-21 08:16 | NUR ---
SUPERVISOR ASSEMBLY ROOMSPARE PARTS CLERK SI:CROHN'S EXACERBATION VS: BP 119/71, P 103, T 97.5, RR 19, SpO2 95 IS:DILAUDID 1mg IVP ZOFRAN 4mg IVP ZESTRIL 10mg FOLATE 1mg MED/SURG STATUS
--- NOTE | 2019-03-21 10:00 | NUR ---
Social Service Note Met with patient to discuss placement. Patient refuses to be placed at [facility]. Patient provided his sister's address Cirilo Lyman [address] [place] [id number]. informed insurance KAMILAH Esposito [phone].
--- NOTE | 2019-03-21 10:03 | Pulmonology Progress Note ---
Assessment/Plan Assessment/Plan IMPRESSION: 1. Crohn's exacerbation. 2. Depression. 3. Schizophrenia. DISCUSSION: Tolerating diet. Continue Wellbutrin and Seroquel. DC home vs congregate living CXR negative Subjective Interval Events: None new Constitutional: Reports: no symptoms HEENT: Repors: no symptoms Respiratory: Reports: no symptoms Cardiovascular: Reports: no symptoms Gastrointestinal/Abdominal: Reports: no symptoms Genitourinary: Reports: no symptoms Allergies: Coded Allergies: MORPHINE (Verified Allergy, Unknown, 04/29/16) PROCHLORPERAZINE (Verified Allergy, Unknown, 04/29/16) Objective Last 24 Hour Vital Signs Date Time Temp Pulse Resp B/P (MAP) Pulse Ox O2 Delivery O2 Flow Rate FiO2 03/21/19 08:00 98.4 113 18 140/99 (113) 97 03/21/19 04:00 97.5 103 19 119/71 (87) 03/21/19 00:00 98.3 65 18 129/77 (94) 03/20/19 21:00 Room Air 03/20/19 20:00 98.6 109 19 126/79 (95) 03/20/19 19:16 98.2 03/20/19 16:00 98.2 95 115/85 (95) 03/20/19 12:00 98.7 98 114/81 (92) Intake and Output 03/20/19 03/21/19 19:00 07:00 Intake Total 1800 ml Balance 1800 ml Intake Oral 1800 ml # Voids 4 General Appearance: no acute distress HEENT: normocephalic Respiratory/Chest: chest wall non-tender, lungs clear Cardiovascular: normal peripheral pulses, normal rate Abdomen: normal bowel sounds Fidel Bullock MD Mar 21, 2019 10:03
--- NOTE | 2019-03-21 10:18 | NUR ---
NURSE NOTES: Patient has active discharge order to Home. Patient is alert and oriented x4. Patient reports he does not want to go recuperative care. Patient reports she wants to go to sister's home. Patient provided information. Sister Cirilo Lyman [address] [place] [address]. Discharge instructions given to patient. Prescriptions given to patient. IV removed. ID bracelet removed. Homeless checklist in chart. Patient stable upon discharge.
--- NOTE | 2019-03-21 10:49 | NUR ---
INSURANCE UPDATED CLINICALS HAVE BEEN FAXED TO: [facility] PLEASE FAX THE REVIEW AND CLINICAL TO [place]: [phone]
--- NOTE | 2019-03-22 07:22 | Discharge Summary ---
Discharge Summary Discharge Summary _ DATE OF ADMISSION: 03/13/2019 DATE OF DISCHARGE: 03/21/2019 DISCHARGED BY: Dr. Bullock REASON FOR ADMISSION: 48 years old female, transgender, with past medical history of Crohn's disease, fistula, requiring laparotomy and bowel resection, schizophrenia, depression, history of substance abuse, presented to the emergency department complaining of abdominal pain bleeding. Laboratory work-up revealed no leukocytosis. Hemoglobin 11.3, hematocrit 33. CT of the abdomen and pelvis revealed no acute findings. It demonstrated evidence of previous partial small and large bowel resection. No evidence of bowel obstruction, abscess or other acute pathology. Urine toxicology screen was negative . Patient was admitted for further management . CONSULTANTS: GI specialist Dr. Holden [facility] [employer] [facility] COURSE: Patient admitted to medical surgical floor. Patient started on IV hydration. Patient started on clear liquid diet . GI specialist followed. Patient started on sulfasalazine and steroids. Patient initially had diarrhea. Stool for C. difficile was negative. Patient also reported hemorrhoidal pain. Patient started on topical treatment for hemorrhoids. Patient reported recurrent bleeding but it was not seen by nurses. Hemoglobin and hematocrit were closely monitored with goal to keep hemoglobin above 7 , remained stable . Iron panel stable. Noted elevated ESR but CRP within normal limits. Diet was advanced, and patient was able to tolerate diet. Steroids tapered down. Sulfasalazine continued. Blood pressure was managed with GURMEET inhibitor, remained stable. GI prophylaxis with PPI provided. Pain management was addressed as needed. Chest x-ray revealed no acute cardiopulmonary pathology. Wellbutrin and Seroquel were continued. Pain was controlled. Diarrhea resolved. Patient was able to tolerate diet. Patient was stable for discharge . frog or oyster farmworker met with patient. Patient refused to be placed at the Recuperated facility. Patient provided her sister 's address that she will be going to. FINAL DIAGNOSES: Crohn's disease exacerbation Diarrhea Obesity Anemia Hemorrhoidal pain Depression Schizophrenia Substance abuse DISCHARGE MEDICATIONS: See Medication Reconciliation list. DISCHARGE INSTRUCTIONS: Patient was discharged . Follow up with primary care provider in one week. I have been assigned to dictate discharge summary for this account. I was not involved in the patient's management. Sabina Pickard NP Mar 22, 2019 07:22
== END 2019-03-21 09:56 | disposition home or self-care (01) | DRG 245 ==
LOC: EDSEX 20:32 → EDBD 20:32 → EMR 21:26 → 4E 23:00 → EDBEDREQ 23:46
DX: K50.90 Crohn's disease, unspecified, without complications (principal); A04.72 Enterocolitis due to Clostridium difficile, not specified as recurrent; F20.9 Schizophrenia, unspecified; E87.1 Hypo-osmolality and hyponatremia; F19.10 Other psychoactive substance abuse, uncomplicated; I10 Essential (primary) hypertension; E66.9 Obesity, unspecified; D64.9 Anemia, unspecified; F32.9 Major depressive disorder, single episode, unspecified; Z68.41 Body mass index [BMI] 40.0-44.9, adult; Z90.49 Acquired absence of other specified parts of digestive tract; Z88.8 Allergy status to other drugs, medicaments and biological substances; Z88.6 Allergy status to analgesic agent; K64.9 Unspecified hemorrhoids
CPT/HCPCS: 36415; 71045; 74176; 80053; 80307; 81003; 83540; 83550; 83690; 85007; 85025; 85651; 86140; 87086; 87181; 87324; 96361; 96365; 96375; 99285; J2405

== ENCOUNTER 2019-04-23 12:22 | Inpatient (IN) | payer MEDICAID ==
[~2019-04-23] VITALS: Ht 177.8 cm; Wt 128.8 kg
[~2019-04-23 12:22] MED LIST changes: +BUPROPION HCL150 M5 ORAL; +NORCO 10-325 T1 EACH ORAL; +SEROQUEL100 MG ORAL
[2019-04-23 12:25] VITALS: BP 133/70
--- NOTE | 2019-04-23 12:25 | NUR ---
ED Nurse Note: Pt brought in by EMS RA 34 due to abd pain with Nausea and vomiting since yesterday. AAO x4, ambulates with steady gait. No respiratory distress.
[2019-04-23] MEDS ORDERED: Isovue-300 100ml vial INJ PRN (12:45)
[2019-04-23] MEDS ORDERED: Hydromorphone 0.5mg/0.5ml inj IVP ONE ×2 (12:45→13:00)
[2019-04-23] MEDS ORDERED: Solu-MEDROL 125mg Inj IVP ONE (12:45)
--- NOTE | 2019-04-23 12:51 | Emergency Room Report ---
History of Present Illness General Chief Complaint: Abdominal Pain Source: Patient, EMS Present Illness HPI 49-year-old male goes by female, presents with generalized abdominal pain states she is having a Crohn's flare, she endorses an achy pain with bloody bowel movements, no fever no chills no chest pain, she does endorse some nausea and vomiting, states she has not been able to tolerate anything p.o., patient feels dehydrated, she is requesting pain medication control, steroids, she grades the pain as moderate, aching in nature, no aggravating or alleviating factors, patient presents for evaluation. Allergies: Coded Allergies: CODEINE (Unverified Allergy, Intermediate, 04/23/19) MORPHINE (Verified Allergy, Unknown, 04/29/16) PROCHLORPERAZINE (Verified Allergy, Unknown, 04/29/16) Patient History Past Medical History: see triage record Reviewed Nursing Documentation: PMH: Agreed; PSxH: Agreed Nursing Documentation-PMH Past Medical History: No History, Except For Hx Hypertension: Yes Hx Gastrointestinal Problems: Yes - Crohns disease, TB in 1988 Review of Systems All Other Systems: negative except mentioned in HPI Physical Exam Vital Signs Date Time Temp Pulse Resp B/P (MAP) Pulse Ox O2 Delivery O2 Flow Rate FiO2 04/23/19 12:15 98.1 112 17 121/75 (90) 98 Room Air Sp02 EP Interpretation: reviewed, normal General Appearance: well appearing, no apparent distress, alert Head: normocephalic, atraumatic Eyes: bilateral eye PERRL, bilateral eye EOMI ENT: uvula midline, moist mucus membranes Neck: supple, thyroid normal, supple/symm/no masses Respiratory: lungs clear, no respiratory distress, no retraction, no accessory muscle use Cardiovascular #1: normal peripheral pulses, regular rate, rhythm, no edema, no gallop, no murmur Gastrointestinal: non tender, soft, no guarding, no rebound Musculoskeletal: normal inspection Neurologic: alert, oriented x3 Psychiatric: mood/affect normal Skin: no rash, warm/dry Medical Decision Making Diagnostic Impression: Primary Impression: Crohns disease Qualified Codes: K50.919 - Crohn's disease, unspecified, with unspecified complications ER Course 49-year-old male transgender, complains of Crohn's flare, low suspicion for acute diverticulitis, obstruction, patient is also requesting Dilaudid by name, she states she is allergic to morphine, low suspicion for intra-abdominal processes, patient when distracted has reduced abdominal pain, pending CT abdomen and pelvis, concern for pain seeking behavior versus Crohn's flare, steroids given fluids given, pain control She is signed out to Dr. Hillman at 3:09pm following up CT Laboratory Tests Test 04/23/19 13:42 White Blood Count 8.4 K/UL (4.8-10.8) Red Blood Count 3.32 M/UL (4.70-6.10) L Hemoglobin 11.0 G/DL (14.2-18.0) L Hematocrit 33.6 % (42.0-52.0) L Mean Corpuscular Volume 101 FL (80-99) H Mean Corpuscular Hemoglobin 33.1 PG (27.0-31.0) H Mean Corpuscular Hemoglobin Concent 32.7 G/DL (32.0-36.0) Red Cell Distribution Width 12.3 % (11.6-14.8) Platelet Count 257 K/UL (150-450) Mean Platelet Volume 6.0 FL (6.5-10.1) L Neutrophils (%) (Auto) 71.3 % (45.0-75.0) Lymphocytes (%) (Auto) 20.6 % (20.0-45.0) Monocytes (%) (Auto) 7.1 % (1.0-10.0) Eosinophils (%) (Auto) 0.2 % (0.0-3.0) Basophils (%) (Auto) 0.9 % (0.0-2.0) Prothrombin Time 10.4 SEC (9.30-11.50) Prothrombin Time INR 1.0 (0.9-1.1) PTT 26 SEC (23-33) Sodium Level 140 MMOL/L (136-145) Potassium Level 3.8 MMOL/L (3.5-5.1) Chloride Level 104 MMOL/L (98-107) Carbon Dioxide Level 25 MMOL/L (21-32) Anion Gap 11 mmol/L (5-15) Blood Urea Nitrogen 21 mg/dL (7-18) H Creatinine 1.1 MG/DL (0.55-1.30) Estimate Glomerular Filtration Rate > 60 mL/min (>60) Glucose Level 103 MG/DL (74-106) Calcium Level 9.3 MG/DL (8.5-10.1) Total Bilirubin 0.3 MG/DL (0.2-1.0) Aspartate Amino Transferase (AST) 24 U/L (15-37) Alanine Aminotransferase (ALT) 16 U/L (12-78) Alkaline Phosphatase 67 U/L (46-116) Total Creatine Kinase 514 U/L (26-308) H Creatine Kinase MB 3.1 NG/ML (0.0-3.6) Creatine Kinase MB Relative Index 0.6 Troponin I 0.000 ng/mL (0.000-0.056) Total Protein 7.9 G/DL (6.4-8.2) Albumin 3.7 G/DL (3.4-5.0) Globulin 4.2 g/dL Albumin/Globulin Ratio 0.9 (1.0-2.7) L Lipase 78 U/L (73-393) EKG Diagnostic Results EKG Time: 12:42 EP Interpretation: Sinus tachycardia, rate 102, QTc 477, no acute ST elevations Rate: tachycardiac Rhythm: other - sinus tachycardia ST Segments: no acute changes Last Vital Signs Date Time Temp Pulse Resp B/P (MAP) Pulse Ox O2 Delivery O2 Flow Rate FiO2 04/23/19 12:15 98.1 112 17 121/75 (90) 98 Room Air Disposition: ADMITTED INPATIENT Condition: Stable Jeremías Rasheed MD Apr 23, 2019 12:51
--- NOTE | 2019-04-23 13:45 | NUR ---
ED Nurse Note: Collected blood specimen then sent.
[2019-04-23 14:11] LABS: BASOPHILS % (AUTO) 0.9 % (0.0-2.0); EOSINOPHILS % (AUTO) 0.2 % (0.0-3.0); HEMATOCRIT 33.6 % (42.0-52.0); LYMPHOCYTES % (AUTO) 20.6 % (20.0-45.0); MEAN CORPUSCULAR VOLUME 101 FL (80-99); MONOCYTES % (AUTO) 7.1 % (1.0-10.0); NEUTROPHILS % (AUTO) 71.3 % (45.0-75.0); PLATELET COUNT 257 K/UL (150-450); RED BLOOD COUNT 3.32 M/UL (4.70-6.10); RED CELL DISTRIBUTION WIDTH 12.3 % (11.6-14.8); WHITE BLOOD COUNT 8.4 K/UL (4.8-10.8)
[2019-04-23 14:23] LABS: ANION GAP 11 mmol/L (5-15); BLOOD UREA NITROGEN 21 mg/dL (7-18); CALCIUM 9.3 MG/DL (8.5-10.1); CARBON DIOXIDE 25 MMOL/L (21-32); CHLORIDE 104 MMOL/L (98-107); CREATININE 1.1 MG/DL (0.55-1.30); POTASSIUM 3.8 MMOL/L (3.5-5.1); SODIUM 140 MMOL/L (136-145)
[2019-04-23 14:30] VITALS: BP 127/80
[2019-04-23 14:36] LABS: ALANINE AMINOTRANSFERASE 16 U/L (12-78); ALBUMIN 3.7 G/DL (3.4-5.0); ALBUMIN/GLOBULIN RATIO 0.9 (1.0-2.7); ALKALINE PHOSPHATASE 67 U/L (46-116); ASPARTATE AMINO TRANSFERASE 24 U/L (15-37); BILIRUBIN,TOTAL 0.3 MG/DL (0.2-1.0); CKMB 3.1 NG/ML (0.0-3.6); CREATINE KINASE 514 U/L (26-308)
--- NOTE | 2019-04-23 14:50 | NUR ---
ED Nurse Note: Pt taken to CT.
--- NOTE | 2019-04-23 15:38 | Diagnostic Imaging Report ---
Indication: Abdominal pain Technique: Continuous helical transaxial imaging of the abdomen and pelvis was obtained from the lung bases to the pubic symphysis during intravenous contrast administration. Coronal 2-D reformats were also obtained. Study obtained in a Siemens sensation [address] Automatic Exposure Control was utilized. Total Dose length Product (DLP): 1211.[address] Dose Index Volume (CTDIvol): 19.51 mGy Comparison: 03/13/2019, 04/29/2016 Findings: Minimal dependent atelectasis noted pusher basilar aspects of both lungs. The right kidney is significantly larger than the left. There are bilateral extrarenal pelvis configuration demonstrated. The ureters are normal caliber. The right kidney is malrotated. There are cysts within the left kidney are demonstrated. The bladder is mildly distended. The patient has had abdominal surgery. There are anastomotic sutures in the area of the terminal ileum in the right lower quadrant as well as in the left lower quadrant associated with small bowel. The sutures in the left lower quadrant are associated with a mildly distended segment of small bowel which may be due to denervation or postsurgical in nature. This is not felt to be due to obstruction. Rectosigmoid sutures also noted indicative of partial resection. In the epigastric region, there is a small ventral hernia containing mesenteric fat. There is also small hernia in the supraumbilical region with a knuckle of small bowel within the hernia sac which measures about 1.7 cm transversely. This is not associated with any CT signs of inflammation. The appendix is not seen. The liver and spleen, pancreas and gallbladder appear unremarkable. There is no biliary ductal dilatation. There is a low-density left adrenal mass measuring about 2.4 cm probably adenoma. This appears unchanged from the last study. IMPRESSION: No acute findings are appreciated. No significant interval change. Ventral abdominal hernias as described above. No associated inflammation or bowel obstruction. Small left adrenal mass unchanged from 2016 likely adenoma. Evidence of previous bowel surgery including partial rectosigmoid resection and small bowel resection. Status post appendectomy. Multiple cysts within the left kidney. Bilateral extrarenal pelvis configuration. Malrotation of the right kidney. Mild posterior basilar atelectasis. [facility] has communicated the preliminary results to the Emergency Department. Their findings are largely concordant with this report. The CT scanner at [facility] is accredited by the [employer] and the scans are performed using dose optimization techniques as appropriate to a performed exam including Automatic Exposure control.
--- NOTE | 2019-04-23 15:59 | NUR ---
ED Nurse Note: Collected urine then sent.
--- NOTE | 2019-04-23 16:04 | Emergency Room Report ---
Physical Exam Vital Signs Date Time Temp Pulse Resp B/P (MAP) Pulse Ox O2 Delivery O2 Flow Rate FiO2 04/23/19 12:15 98.1 112 17 121/75 (90) 98 Room Air Medical Decision Making Diagnostic Impression: Primary Impression: Crohns disease Qualified Codes: K50.919 - Crohn's disease, unspecified, with unspecified complications Additional Impressions: Vomiting UTI (urinary tract infection) Abdominal pain ER Course Assumed care of the patient at [address] scan. This is now returned largely unremarkable. It shows postsurgical changes including appendectomy but no evidence of bowel obstruction or significant inflammation. There is some ventral hernias but does not appear to be obstructed. There is also identified renal cysts and slight atrophy of the left kidney but overall unremarkable abdominal CT. Labs have returned largely within normal limits. The patient is no acute distress. She will be discharged home with a 5-day course of steroids for possible early Crohn's flare. Discussed appropriate need for follow-up with her statue maker and reasons to return to the emergency department. Laboratory Tests Test 04/23/19 13:42 04/23/19 15:50 White Blood Count 8.4 K/UL (4.8-10.8) Red Blood Count 3.32 M/UL (4.70-6.10) L Hemoglobin 11.0 G/DL (14.2-18.0) L Hematocrit 33.6 % (42.0-52.0) L Mean Corpuscular Volume 101 FL (80-99) H Mean Corpuscular Hemoglobin 33.1 PG (27.0-31.0) H Mean Corpuscular Hemoglobin Concent 32.7 G/DL (32.0-36.0) Red Cell Distribution Width 12.3 % (11.6-14.8) Platelet Count 257 K/UL (150-450) Mean Platelet Volume 6.0 FL (6.5-10.1) L Neutrophils (%) (Auto) 71.3 % (45.0-75.0) Lymphocytes (%) (Auto) 20.6 % (20.0-45.0) Monocytes (%) (Auto) 7.1 % (1.0-10.0) Eosinophils (%) (Auto) 0.2 % (0.0-3.0) Basophils (%) (Auto) 0.9 % (0.0-2.0) Prothrombin Time 10.4 SEC (9.30-11.50) Prothrombin Time INR 1.0 (0.9-1.1) PTT 26 SEC (23-33) Sodium Level 140 MMOL/L (136-145) Potassium Level 3.8 MMOL/L (3.5-5.1) Chloride Level 104 MMOL/L (98-107) Carbon Dioxide Level 25 MMOL/L (21-32) Anion Gap 11 mmol/L (5-15) Blood Urea Nitrogen 21 mg/dL (7-18) H Creatinine 1.1 MG/DL (0.55-1.30) Estimate Glomerular Filtration Rate > 60 mL/min (>60) Glucose Level 103 MG/DL (74-106) Calcium Level 9.3 MG/DL (8.5-10.1) Total Bilirubin 0.3 MG/DL (0.2-1.0) Aspartate Amino Transferase (AST) 24 U/L (15-37) Alanine Aminotransferase (ALT) 16 U/L (12-78) Alkaline Phosphatase 67 U/L (46-116) Total Creatine Kinase 514 U/L (26-308) H Creatine Kinase MB 3.1 NG/ML (0.0-3.6) Creatine Kinase MB Relative Index 0.6 Troponin I 0.000 ng/mL (0.000-0.056) Total Protein 7.9 G/DL (6.4-8.2) Albumin 3.7 G/DL (3.4-5.0) Globulin 4.2 g/dL Albumin/Globulin Ratio 0.9 (1.0-2.7) L Lipase 78 U/L (73-393) Urine Color Pale yellow Urine Appearance Cloudy Urine pH 5 (4.5-8.0) Urine Specific [place] 1.010 (1.005-1.035) Urine Protein 2+ (NEGATIVE) H Urine Glucose (UA) Negative (NEGATIVE) Urine Ketones 2+ (NEGATIVE) H Urine Blood 5+ (NEGATIVE) H Urine Nitrite Negative (NEGATIVE) Urine Bilirubin Negative (NEGATIVE) Urine Urobilinogen Normal MG/DL (0.0-1.0) Urine Leukocyte Esterase 2+ (NEGATIVE) H Urine RBC Tntc /HPF (0 - 0) H Urine WBC 10-15 /HPF (0 - 0) H Urine Squamous Epithelial Cells Occasional /LPF Urine Bacteria Few /HPF (NONE) Reevaluation Time: 16:47 Last Vital Signs Date Time Temp Pulse Resp B/P (MAP) Pulse Ox O2 Delivery O2 Flow Rate FiO2 04/23/19 14:20 98.0 04/23/19 12:25 98 17 Room Air 04/23/19 12:25 133/70 100 Status: unchanged Reevaluation Impression Urinalysis concerning for acute urinary tract infection. She will be given a gram of ceftriaxone intravenously. She is having difficulty with nausea but no further episodes of vomiting. Concerned she may be unable to swallow tablets for antibiotics and is at risk for dehydration. She is also complaining of persistent pain. I have spoken with Dr. Fan who will transfer the patient to [facility] for admission. I believe she is stable and appropriate for transfer. The patient understands and agrees with this treatment plan. 1820: The patient refused transfer over the the admitting physician assignment as apparently she had been admitted to that particular physician in the past and they had a verbal altercation almost requiring legal action. Was given permission by insurance [employer] to change attending and she will now be admitted to our facility under . Remains in stable condition is suitable for the floor. Please note that this report is being documented using Dwllr technology. This can lead to erroneous entry secondary to incorrect interpretation by the dictating instrument. Disposition: XFER S[facility]-TRM HOSP Condition: Stable Referrals: NOT CHOSEN IPA/,REFERRING (PCP) Leon Hillman MD Apr 23, 2019 16:04
[2019-04-23] MEDS ORDERED: HYDROcodone/Acetamin 7.5/325 tab ORAL ONE (16:15)
[2019-04-23 16:16] LABS: APPEARANCE,URINE CLOUDY; BILIRUBIN, URINE NEGATIVE (NEGATIVE); COLOR,URINE PALE YELLOW; GLUCOSE, URINE (UA) NEGATIVE (NEGATIVE); KETONES,URINE 2+ (NEGATIVE); LEUKOCYTE ESTERASE ,URINE 2+ (NEGATIVE); NITRITE,URINE NEGATIVE (NEGATIVE); PH,URINE 5 (4.5-8.0); PROTEIN,URINE 2+ (NEGATIVE); UROBILINOGEN,URINE NORMAL MG/DL (0.0-1.0)
[2019-04-23 16:30] VITALS: BP 135/76
[2019-04-23] MEDS ORDERED: cefTRIAXone 1 GM in NS 55 ML IVPB ONE (16:30)
--- NOTE | 2019-04-23 18:31 | NUR ---
ED Nurse Note: Report given to Marce WILSON.
--- NOTE | 2019-04-23 19:46 | NUR ---
NURSE NOTES: Pt received in room, asking for food, able to make needs known, call light within reach, c/o pain, waiting for MD orders and explained to the patient, will continue to monitor.
[2019-04-23 20:00] VITALS: BP 133/75
[2019-04-23] MEDS: D5 1/2NS 1,000 ML IV SCH (21:53)
[2019-04-23] MEDS ORDERED: Nitroglycerin Subl 0.4mg tab SL PRN (22:00)
[2019-04-23] MEDS ORDERED: Miralax 17gm pkt ORAL PRN (22:00)
--- NOTE | 2019-04-23 22:00 | NUR ---
NURSE NOTES: Dr. Kelley put in orders, pt c/o about having tylenol medication and not dilaudid for pain, left messages for Dr. Kelley and Dr. Hicks, pt threatening to leave AMA but refusing to sign paper, calling the Crystal Report Developer on multiple occasions complaining about pain medication order and stating she wanted to be transferred and should have been transferred to [facility] at 7pm, pt stated she is bleeding from the rectum and the blood is in the toilet when told not to flush so that I could see it she stated she flushed it, pt has order for IV fluids but is refusing them, does not want to take tylenol or ativan and states there is no reason to have a benadryl IV order without a diluadid order.
[2019-04-24] VITALS: BP 142/81
[2019-04-24] MEDS: LORazepam Inj 2mg/ml 1ml IV PRN ×3 (01:43→23:46)
[2019-04-24] MEDS: DiphenhydrAMINE 50mg/ml Inj IVP PRN ×3 (01:44→23:46)
--- NOTE | 2019-04-24 01:50 | NUR ---
NURSE NOTES: Pt requested medication for pain(tylenol), offered to start IV fluids and pt still refusing.
--- NOTE | 2019-04-24 07:11 | NUR ---
HAND-OFF: Report given to STEVE Zheng.
--- NOTE | 2019-04-24 07:49 | NUR ---
NURSE NOTES: Received pt in bed, asleep, in no active distress. REJ IV access, saline locked. Bed locked at the lowest position possible, call light within easy reach, siderails up x3. Pt refused VS. Will continue to monitor pt and follow up with the plan of care.
[2019-04-24] MEDS: BuPROPion SR 150mg tab ORAL SCH ×2 (09:00→17:16)
[2019-04-24] MEDS: SulfASALAZine 500MG tab ORAL SCH ×4 (09:00→21:00)
[2019-04-24] MEDS: Heparin 5000 units/ml inj SUBQ SCH ×2 (09:00→20:24)
[2019-04-24] MEDS: Pantoprazole Inj IV SCH ×2 (09:00→14:33)
--- NOTE | 2019-04-24 09:21 | NUR ---
NURSE NOTES: patient walked to the nurse station, with IV access in her hands, saying it was inadvertently pulled off. No bleeding noted. Pt says she has abdominal pain and is also bleeding from the rectum, but refuses to let nurse assess. Pt complains she doesn't have order of pain medication, and calls nurse epoxy fabrication supervisor. Nurse calls social research assistant Karen, who says will talk to pt.
--- NOTE | 2019-04-24 09:30 | NUR ---
NURSE NOTES: patient refused polarity tester to do blood draw. Nurse contacted dr. Hicks regarding pt request for IV pain medication, and a consultation with apprentice painter brush dr. Lewis was placed. Message for dr. Lewis consult to patient was left at office voicemail.
--- NOTE | 2019-04-24 09:53 | NUR ---
NURSE NOTES: patient refused US of abdomen. Addendum: 04/24/19 at 1005 by ELDER GARCIA RN NURSE NOTES: nurse explained the necesity to have the abdominal US done, patient still refused.
--- NOTE | 2019-04-24 10:39 | NUR ---
NURSE NOTES: Patient NPO, patient refusing ultrasound of abdomen. Patient reports he wants to eat. GI CHILD CUSTODY EVALUATOR contacted new diet order received.
[2019-04-24] MEDS: D5 1/2NS 1,000 ML IV SCH (11:13)
--- NOTE | 2019-04-24 11:29 | NUR ---
*-* NO INSURANCE INFORMATION IN THE BAR UNABLETO SEND CLINICALS OR REVIEWS *-*
--- NOTE | 2019-04-24 11:51 | GI Initial Consult Note ---
History of Present Illness General Date patient seen: Apr 24, 2019 Time patient seen: 11:44 Reason for Hospitalization: Abdominal Pain Referring physician: VIRGILIO MEZA Reason for Consultation: CROHNS FLARE Present Illness HPI 49-year-old male goes by female, presents with generalized abdominal pain states she is having a Crohn's flare, she endorses an achy pain with bloody bowel movements, no fever no chills no chest pain, she does endorse some nausea and vomiting, states she has not been able to tolerate anything p.o., patient feels dehydrated, she is requesting pain medication control, steroids, she grades the pain as moderate, aching in nature, no aggravating or alleviating factors, patient presents for evaluation. GI consulted for reported Crohn's flare. Patient seen, awake alert and oriented x4 no apparent distress. Has complaint of severe abdominal pain all quadrants. Patient is refusing care at this time, has refused abdominal ultrasound and wishes to have his diet advanced. Has complaint of diarrhea with rectal bleeding. Specifically requesting for Dilaudid and Benadryl. The patient notes that he was diagnosed with Crohn's over 20 years ago. States she takes mesalamine and Pentasa for his Crohn's. The patient has a history of obesity, anemia, hemorrhoidal pain, drug-seeking behavior. The patient states he had a colonoscopy proximately a few months ago and refuses to have one done at this time. Pertinent lab results WBC 8.4, hemoglobin of 11, total creatinine kinase of 514. Home Meds Active Scripts Hydrocodone Bit/Acetaminophen 10-325* (NORCO 10-325*) 1 Each Tablet, 1 TAB ORAL Q6H PRN, #10 TAB 0 Refills PRN PAIN Prov:Fidel Bullock MD 03/16/19 Bupropion Hcl* (BUPROPION HCL SR*) 150 Mg Tablet.er, 150 MG ORAL BID for 30 Days , TAB Prov:Fidel Bullock MD 03/16/19 Quetiapine Fumarate* (SEROQUEL*) 100 Mg Tablet, 100 MG ORAL Q12HR for 30 Days, TAB Prov:Fidel Bullock MD 03/16/19 Metronidazole* (FLAGYL*) 500 Mg Tablet, 500 MG ORAL EVERY 8 HOURS, #30 TAB Prov:Abe Mayer MD 04/29/16 Prednisone* (PREDNISONE*) 20 Mg Tablet, 40 MG ORAL DAILY, #10 TAB Prov:Abe Mayer MD 04/29/16 Aripiprazole* (ABILIFY*) 5 Mg Tablet, 5 MG ORAL DAILY, #30 TAB 0 Refills Prov:Abe Mayer MD 04/29/16 Haloperidol (Haloperidol) 5 Mg Tablet, 5 MG ORAL DAILY, #30 TAB 0 Refills Prov:Abe Mayer MD 04/29/16 Reported Medications Montelukast Sodium* (MONTELUKAST SODIUM*) 10 Mg Tablet, 10 MG ORAL DAILY, TAB 04/29/16 Quetiapine Fumarate* (QUETIAPINE FUMARATE*) 50 Mg Tablet, 100 MG ORAL DAILY, TAB 04/29/16 Pantoprazole* (PANTOPRAZOLE*) 40 Mg Tablet.dr, 40 MG ORAL DAILY, TAB 04/29/16 Lisinopril* (LISINOPRIL*) 10 Mg Tablet, 10 MG ORAL DAILY, TAB 04/29/16 Prednisone (Prednisone) 20 Mg Tablet, 20 MG PO, TAB 04/29/16 Sulfasalazine* (AZULFIDINE*) 500 Mg Tablet, 500 MG ORAL FOUR TIMES A DAY, TAB 04/29/16 Folic Acid* (FOLIC ACID*) 1 Mg Tablet, 1 MG ORAL DAILY, TAB 04/29/16 Mesalamine (ASACOL HD) 800 Mg Tablet.dr, 800 MG ORAL THREE TIMES A DAY, TAB Do not break outer coating 04/29/16 Med list reviewed/reconciled: Yes Allergies: Coded Allergies: CODEINE (Unverified Allergy, Intermediate, 04/23/19) MORPHINE (Verified Allergy, Unknown, 04/29/16) PROCHLORPERAZINE (Verified Allergy, Unknown, 04/29/16) Patient History History Provided By: Patient, Medical Record PMH Narrative Past Medical History: see triage record Reviewed Nursing Documentation: PMH: Agreed; PSxH: Agreed Nursing Documentation-PMH Past Medical History: No History, Except For Hx Hypertension: Yes Hx Gastrointestinal Problems: Yes - Crohns disease, TB in 1988 Social History: Denies: smoking, alcohol use, drug use, other Review of Systems All Other Systems: negative except mentioned in HPI Physical Exam Vital Signs Date Time Temp Pulse Resp B/P (MAP) Pulse Ox O2 Delivery O2 Flow Rate FiO2 04/23/19 12:15 98.1 112 17 121/75 (90) 98 Room Air Sp02 EP Interpretation: reviewed, normal Labs Laboratory Tests Test 04/23/19 13:42 04/23/19 15:50 White Blood Count 8.4 K/UL (4.8-10.8) Red Blood Count 3.32 M/UL (4.70-6.10) L Hemoglobin 11.0 G/DL (14.2-18.0) L Hematocrit 33.6 % (42.0-52.0) L Mean Corpuscular Volume 101 FL (80-99) H Mean Corpuscular Hemoglobin 33.1 PG (27.0-31.0) H Mean Corpuscular Hemoglobin Concent 32.7 G/DL (32.0-36.0) Red Cell Distribution Width 12.3 % (11.6-14.8) Platelet Count 257 K/UL (150-450) Mean Platelet Volume 6.0 FL (6.5-10.1) L Neutrophils (%) (Auto) 71.3 % (45.0-75.0) Lymphocytes (%) (Auto) 20.6 % (20.0-45.0) Monocytes (%) (Auto) 7.1 % (1.0-10.0) Eosinophils (%) (Auto) 0.2 % (0.0-3.0) Basophils (%) (Auto) 0.9 % (0.0-2.0) Prothrombin Time 10.4 SEC (9.30-11.50) Prothromb Time International Ratio 1.0 (0.9-1.1) Activated Partial Thromboplast Time 26 SEC (23-33) Sodium Level 140 MMOL/L (136-145) Potassium Level 3.8 MMOL/L (3.5-5.1) Chloride Level 104 MMOL/L (98-107) Carbon Dioxide Level 25 MMOL/L (21-32) Anion Gap 11 mmol/L (5-15) Blood Urea Nitrogen 21 mg/dL (7-18) H Creatinine 1.1 MG/DL (0.55-1.30) Estimat Glomerular Filtration Rate > 60 mL/min (>60) Glucose Level 103 MG/DL (74-106) Calcium Level 9.3 MG/DL (8.5-10.1) Total Bilirubin 0.3 MG/DL (0.2-1.0) Aspartate Amino Transf (AST/SGOT) 24 U/L (15-37) Alanine Aminotransferase (ALT/SGPT) 16 U/L (12-78) Alkaline Phosphatase 67 U/L (46-116) Total Creatine Kinase 514 U/L (26-308) H Creatine Kinase MB 3.1 NG/ML (0.0-3.6) Creatine Kinase MB Relative Index 0.6 Troponin I 0.000 ng/mL (0.000-0.056) Total Protein 7.9 G/DL (6.4-8.2) Albumin 3.7 G/DL (3.4-5.0) Globulin 4.2 g/dL Albumin/Globulin Ratio 0.9 (1.0-2.7) L Lipase 78 U/L (73-393) Urine Color Pale yellow Urine Appearance Cloudy Urine pH 5 (4.5-8.0) Urine Specific [place] 1.010 (1.005-1.035) Urine Protein 2+ (NEGATIVE) H Urine Glucose (UA) Negative (NEGATIVE) Urine Ketones 2+ (NEGATIVE) H Urine Blood 5+ (NEGATIVE) H Urine Nitrite Negative (NEGATIVE) Urine Bilirubin Negative (NEGATIVE) Urine Urobilinogen Normal MG/DL (0.0-1.0) Urine Leukocyte Esterase 2+ (NEGATIVE) H Urine RBC Tntc /HPF (0 - 0) H Urine WBC 10-15 /HPF (0 - 0) H Urine Squamous Epithelial Cells Occasional /LPF Urine Bacteria Few /HPF (NONE) General Appearance: well appearing, no apparent distress, alert Head: normocephalic EENT: PERRL/EOMI, normal ENT inspection Neck: supple Respiratory: normal breath sounds, no respiratory distress Cardiovascular: normal rate Gastrointestinal: normal inspection, non tender, soft, normal bowel sounds, non -distended Rectal: deferred Genitourinary: deferred Musculoskeletal: normal inspection, back normal Neurologic: normal inspection, alert, oriented x3, responsive Psychiatric: normal inspection, judgement/insight normal, memory normal Skin: normal inspection, normal color, no rash, warm/dry, palpation normal, well hydrated Lymphatic: normal inspection, no adenopathy Current Medications Current Medications Medications (Trade) Dose Ordered Sig/Kalani Route PRN Reason Start Time Stop Time Status Last Admin Dose Admin Acetaminophen (Tylenol) 650 mg Q4H PRN ORAL fever 04/23/19 22:00 9/3/19 21:59 04/24/19 01:42 Aripiprazole (Abilify) 5 mg DAILY ORAL 04/24/19 09:00 05/24/19 08:59 Bupropion HCl (Wellbutrin SR) 150 mg BID ORAL 04/24/19 09:00 05/24/19 08:59 Dextrose (Dextrose 50%) 25 ml Q30M PRN IV Hypoglycemia 04/23/19 22:00 05/23/19 21:59 Dextrose (Dextrose 50%) 50 ml Q30M PRN IV Hypoglycemia 04/23/19 22:00 05/23/19 21:59 Dextrose/Sodium Chloride 1,000 ml @ 75 mls/hr [id number] IV 04/23/19 21:53 05/23/19 21:52 Diphenhydramine HCl (Benadryl) 25 mg Q6H PRN ORAL Itching/Pruritis 04/23/19 22:00 05/23/19 21:59 Diphenhydramine HCl (Benadryl) 25 mg Q8H PRN IVP Itching 04/24/19 01:45 05/24/19 01:44 04/24/19 01:44 Heparin Sodium (Porcine) (Heparin 5000 units/ml) 5,000 units EVERY 12 HOURS SUBQ 04/24/19 09:00 05/24/19 08:59 Iopamidol (Isovue-300 100ml) 100 ml NOW PRN INJ Radiology Procedure 04/23/19 12:45 Lorazepam (Ativan 2mg/ml 1ml) 1 mg Q4H PRN IV agitation 04/23/19 22:00 04/30/19 21:59 04/24/19 01:43 Nitroglycerin (Ntg) 0.4 mg Q5M X 3 DOSES PRN SL Prn Chest Pain 04/23/19 22:00 05/23/19 21:59 Ondansetron HCl (Zofran) 4 mg Q6H PRN IVP Nausea & Vomiting 04/23/19 22:00 05/23/19 21:59 Pantoprazole (Protonix) 40 mg DAILY IV 04/24/19 09:00 05/24/19 08:59 Polyethylene Glycol (Miralax) 17 gm HSPRN PRN ORAL Constipation 04/23/19 22:00 05/23/19 21:59 Quetiapine Fumarate (SEROquel) 100 mg DAILY ORAL 04/24/19 09:00 05/24/19 08:59 Sulfasalazine (Azulfidine) 500 mg FOUR TIMES A DAY ORAL 04/24/19 09:00 05/24/19 08:59 Temazepam (Restoril) 15 mg HSPRN PRN ORAL Insomnia 04/23/19 22:00 04/30/19 21:59 GI: Plan Problems: (1) Vomiting (2) Abdominal pain (3) Crohns disease (4) C. difficile colitis (5) Substance abuse Plan Abdominal pelvis CT reviewed mainly unremarkable. Evidence of previous bowel surgery including partial rectosigmoid resection and small bowel resection. Status post appendectomy. Abdominal ultrasound refused by patient. Follow-up ESR and CRP to rule out Crohn's flare, most likely is not. Obtain occult blood stool to rule out any GI bleed Advance diet as tolerated Pain management per recommendations Zofran as needed PPI IV and p.o. hydration plus electrolyte correction We will collect for C. difficile if patient has persistent diarrhea to rule out rule out infectious colitis follow labs Discussed with Dr. Weller. Thank you for this patient referral, we will follow. The patient was seen and examined at bedside and all new and available data was reviewed in the patients chart. I agree with the above findings, impression and plan. (Patient seen earlier today. Signature stamp does not reflect patient encounter time.). - MD Kim Hurley,[facility]UI[facility] Apr 24, 2019 11:51
--- NOTE | 2019-04-24 12:16 | Cardiology Report ---
APPROVED REPORT EKG Measurement Heart [id number] ND [id number] Sinus tachycardia Otherwise normal ECG
[2019-04-24] MEDS ORDERED: Ketorolac 30mg Inj IV PRN (12:30)
[2019-04-24] MEDS ORDERED: HYDROcodone/Acetamin 10/325 tab ORAL PRN ×2 (12:30→13:45)
--- NOTE | 2019-04-24 12:53 | Diagnostic Imaging Report ---
Indication: Dyspnea Comparison: 03/16/2019 A single view chest radiograph was obtained. Findings: Cardiomediastinal appearance is within normal limits for age. The lungs are clear. Pulmonary vascularity is appropriate. The diaphragmatic contour is smooth and costophrenic angles are sharp. No pleural effusions are identified. The bones are unremarkable. Impression: No acute findings
[2019-04-24] MEDS ORDERED: HYDROmorphone 1 MG in NS 55 ML IVPB PRN (13:36)
--- NOTE | 2019-04-24 15:01 | Consultation ---
History of Present Illness General Date patient seen: Apr 24, 2019 Chief Complaint: Abdominal Pain Referring physician: VIRGILIO MEZA Reason for Consultation: CROHNS FLARE Present Illness HPI 49 y/o M with xh of Chrons (dx 20 years ago) on mesalamine, obesity, anemia, hemorrhoidal pain, HTN, TB 1988 presents to ED on 04/23 with generalized abd pain , bloody bowel movements, nausea and vomiting. Not able to tolerate anything PO. Denied f/c, CP Allergies: Coded Allergies: CODEINE (Unverified Allergy, Intermediate, 04/23/19) MORPHINE (Verified Allergy, Unknown, 04/29/16) PROCHLORPERAZINE (Verified Allergy, Unknown, 04/29/16) Medication History Scheduled Aripiprazole* (Abilify*), 5 MG ORAL DAILY Bupropion Hcl* (Bupropion Hcl Sr*), 150 MG ORAL BID Folic Acid* (Folic Acid*), 1 MG ORAL DAILY, (Reported) Haloperidol (Haloperidol), 5 MG ORAL DAILY Lisinopril* (Lisinopril*), 10 MG ORAL DAILY, (Reported) Mesalamine (Asacol Hd), 800 MG ORAL THREE TIMES A DAY, (Reported) Metronidazole* (Flagyl*), 500 MG ORAL EVERY 8 HOURS Montelukast Sodium* (Montelukast Sodium*), 10 MG ORAL DAILY, (Reported) Pantoprazole* (Pantoprazole*), 40 MG ORAL DAILY, (Reported) Prednisone* (Prednisone*), 40 MG ORAL DAILY Quetiapine Fumarate* (Quetiapine Fumarate*), 100 MG ORAL DAILY, (Reported) Quetiapine Fumarate* (Seroquel*), 100 MG ORAL Q12HR Sulfasalazine* (Azulfidine*), 500 MG ORAL FOUR TIMES A DAY, (Reported) Scheduled PRN Hydrocodone Bit/Acetaminophen 10-325* (Eminence 10-325*), 1 TAB ORAL Q6H PRN Miscellaneous Medications Prednisone (Prednisone), 20 MG PO, (Reported) Patient History Healthcare decision maker Resuscitation status Full Code Advanced Directive on File Patient History Narrative Pmhx: as above Shx: reviewed Fhx: non contributory Review of Systems All Other Systems: negative except mentioned in HPI Physical Exam Physical Exam Narrative General Appearance: well appearing, no apparent distress, alert Head: normocephalic EENT: PERRL/EOMI, normal ENT inspection Neck: supple Respiratory: normal breath sounds, no respiratory distress Cardiovascular: normal rate Gastrointestinal: normal inspection, non tender, soft, normal bowel sounds, non -distended Musculoskeletal: normal inspection, back normal Neurologic: normal inspection, alert, oriented x3, responsive Psychiatric: normal inspection, judgement/insight normal, memory normal Skin: normal inspection, normal color, no rash, warm/dry, palpation normal, well hydrated Lymphatic: normal inspection, no adenopathy Last 24 Hour Vital Signs Date Time Temp Pulse Resp B/P (MAP) Pulse Ox O2 Delivery O2 Flow Rate FiO2 04/24/19 09:00 Room Air 04/24/19 00:00 98.4 87 20 142/81 (101) 97 04/23/19 21:00 Room Air 04/23/19 20:00 Room Air 04/23/19 20:00 98.0 84 20 133/75 (94) 95 04/23/19 18:34 98.4 88 18 132/70 100 Room Air 04/23/19 17:40 97.6 04/23/19 16:30 98.4 70 14 135/76 99 Room Air Intake and Output 04/23/19 04/24/19 18:59 06:59 Intake Total 2055 ml Balance 2055 ml IV Total 2055 ml # Voids 1 # Bowel Movements 4 Laboratory Tests Test 04/23/19 15:50 Urine Color Pale yellow Urine Appearance Cloudy Urine pH 5 (4.5-8.0) Urine Specific [place] 1.010 (1.005-1.035) Urine Protein 2+ (NEGATIVE) H Urine Glucose (UA) Negative (NEGATIVE) Urine Ketones 2+ (NEGATIVE) H Urine Blood 5+ (NEGATIVE) H Urine Nitrite Negative (NEGATIVE) Urine Bilirubin Negative (NEGATIVE) Urine Urobilinogen Normal MG/DL (0.0-1.0) Urine Leukocyte Esterase 2+ (NEGATIVE) H Urine RBC Tntc /HPF (0 - 0) H Urine WBC 10-15 /HPF (0 - 0) H Urine Squamous Epithelial Cells Occasional /LPF Urine Bacteria Few /HPF (NONE) Microbiology Date/Time Source Procedure Growth Status 04/23/19 15:50 Urine,Clean Catch Urine Culture - Preliminary Gram Negative Bacillus 1 Resulted Height (Feet): 5 Height (Inches): 10.00 Weight (Pounds): 285 Medications Current Medications Medications (Trade) Dose Ordered Sig/Kalani Route PRN Reason Start Time Stop Time Status Last Admin Dose Admin Acetaminophen (Tylenol) 650 mg Q4H PRN ORAL fever 04/23/19 22:00 05/23/19 21:59 04/24/19 01:42 Acetaminophen/ Hydrocodone Bitart (Eminence 10/325) 1 tab Q4H PRN ORAL PAIN 1-6 04/24/19 13:45 05/01/19 12:29 Aripiprazole (Abilify) 5 mg DAILY ORAL 04/24/19 09:00 05/24/19 08:59 Bupropion HCl (Wellbutrin SR) 150 mg BID ORAL 04/24/19 09:00 05/24/19 08:59 Dextrose (Dextrose 50%) 25 ml Q30M PRN IV Hypoglycemia 04/23/19 22:00 05/23/19 21:59 Dextrose (Dextrose 50%) 50 ml Q30M PRN IV Hypoglycemia 04/23/19 22:00 05/23/19 21:59 Dextrose/Sodium Chloride 1,000 ml @ 75 mls/hr [id number] IV 04/23/19 21:53 05/23/19 21:52 Diphenhydramine HCl (Benadryl) 25 mg Q6H PRN ORAL Itching/Pruritis 04/23/19 22:00 05/23/19 21:59 Diphenhydramine HCl (Benadryl) 25 mg Q8H PRN IVP Itching 04/24/19 01:45 05/24/19 01:44 04/24/19 14:31 Heparin Sodium (Porcine) (Heparin 5000 units/ml) 5,000 units EVERY 12 HOURS SUBQ 04/24/19 09:00 05/24/19 08:59 Hydromorphone HCl 1 mg/Sodium Chloride 56 ml @ 224 mls/hr Q4H PRN IVPB PAIN 7-10 04/24/19 13:36 05/01/19 13:35 04/24/19 14:31 Iopamidol (Isovue-300 100ml) 100 ml NOW PRN INJ Radiology Procedure 04/23/19 12:45 Lorazepam (Ativan 2mg/ml 1ml) 1 mg Q4H PRN IV agitation 04/23/19 22:00 04/30/19 21:59 04/24/19 01:43 Nitroglycerin (Ntg) 0.4 mg Q5M X 3 DOSES PRN SL Prn Chest Pain 04/23/19 22:00 05/23/19 21:59 Ondansetron HCl (Zofran) 4 mg Q6H PRN IVP Nausea & Vomiting 04/23/19 22:00 05/23/19 21:59 Pantoprazole (Protonix) 40 mg DAILY IV 04/24/19 09:00 05/24/19 08:59 04/24/19 14:33 Polyethylene Glycol (Miralax) 17 gm HSPRN PRN ORAL Constipation 04/23/19 22:00 05/23/19 21:59 Quetiapine Fumarate (SEROquel) 100 mg DAILY ORAL 04/24/19 09:00 05/24/19 08:59 Sulfasalazine (Azulfidine) 500 mg FOUR TIMES A DAY ORAL 04/24/19 09:00 05/24/19 08:59 04/24/19 14:33 Temazepam (Restoril) 15 mg HSPRN PRN ORAL Insomnia 04/23/19 22:00 04/30/19 21:59 Assessment/Plan Assessment/Plan: Abx: Ceftriaxone x1 04/23 Assessment: Abd pain, v/d- ?gastroenteritis vs Chron;s flare (however CT with no inflammation) -CT abd/p: No acute findings are appreciated. No significant interval change. Ventral abdominal hernias as described above. No associated inflammation or bowel obstruction. Small left adrenal mass unchanged from 2016 likely adenoma. Evidence of previous bowel surgery including partial rectosigmoid resection and small bowel resection. Status post appendectomy. Multiple cysts within the left kidney. Bilateral extrarenal pelvis configuration. Malrotation of the right kidney. Mild posterior basilar atelectasis. Afebrile No leukocytosis -u/a wbc 10-15, nit neg, leuk +2; ucx 40-50k GNR -CXR: no acute findings Chrons (dx 20 years ago) on mesalamine obesity anemia hemorrhoidal pain HTN TB 1988 Plan: -Start empiric Cipro and Flagyl -f/u cx -Monitor CBC/CMP, temperatures -stool cx, Cdiff -GI f/u -supportive treatment Thank you for this consultation. Will continue to follow along with you. Discussed with Brianna Ramos M.D. Apr 24, 2019 15:00
[2019-04-24] MEDS: metroNIDAZOLE 500mg tab ORAL SCH ×2 (16:54→21:47)
[2019-04-24] MEDS: Ciprofloxacin 500mg tab ORAL SCH ×2 (16:54→21:00)
--- NOTE | 2019-04-24 16:57 | NUR ---
HOMELESS COORDINATOR HC attempted to assess patient for homelessness. Patient is very agitated patient is stating she is in pain and screaming for an order for pain meds. Patient is refusing Tylenol and only wants Dilaudid. Patient is screaming at nurse and HC, stating if she does not receive her pain medicine she will go AMA. Patient states she wants to be transfer to [facility]. Patient was suppose to be transfer to [facility] yesterday 04/23/19 per ER Notes. Patient continues to require medical intervention. Will continue to monitor and assist as needed
--- NOTE | 2019-04-24 17:49 | Consultation ---
History of Present Illness General Date patient seen: Apr 24, 2019 Chief Complaint: Abdominal Pain Present Illness Allergies: Coded Allergies: CODEINE (Unverified Allergy, Intermediate, 04/23/19) MORPHINE (Verified Allergy, Unknown, 04/29/16) PROCHLORPERAZINE (Verified Allergy, Unknown, 04/29/16) Medication History Scheduled Aripiprazole* (Abilify*), 5 MG ORAL DAILY Bupropion Hcl* (Bupropion Hcl Sr*), 150 MG ORAL BID Folic Acid* (Folic Acid*), 1 MG ORAL DAILY, (Reported) Haloperidol (Haloperidol), 5 MG ORAL DAILY Lisinopril* (Lisinopril*), 10 MG ORAL DAILY, (Reported) Mesalamine (Asacol Hd), 800 MG ORAL THREE TIMES A DAY, (Reported) Metronidazole* (Flagyl*), 500 MG ORAL EVERY 8 HOURS Montelukast Sodium* (Montelukast Sodium*), 10 MG ORAL DAILY, (Reported) Pantoprazole* (Pantoprazole*), 40 MG ORAL DAILY, (Reported) Prednisone* (Prednisone*), 40 MG ORAL DAILY Quetiapine Fumarate* (Quetiapine Fumarate*), 100 MG ORAL DAILY, (Reported) Quetiapine Fumarate* (Seroquel*), 100 MG ORAL Q12HR Sulfasalazine* (Azulfidine*), 500 MG ORAL FOUR TIMES A DAY, (Reported) Scheduled PRN Hydrocodone Bit/Acetaminophen 10-325* ([place] 10-325*), 1 TAB ORAL Q6H PRN Miscellaneous Medications Prednisone (Prednisone), 20 MG PO, (Reported) Patient History Healthcare decision maker Resuscitation status Full Code Advanced Directive on File Physical Exam Last 24 Hour Vital Signs Date Time Temp Pulse Resp B/P (MAP) Pulse Ox O2 Delivery O2 Flow Rate FiO2 04/24/19 15:01 98.4 04/24/19 09:00 Room Air 04/24/19 00:00 98.4 87 20 142/81 (101) 97 04/23/19 21:00 Room Air 04/23/19 20:00 Room Air 04/23/19 20:00 98.0 84 20 133/75 (94) 95 04/23/19 18:34 98.4 88 18 132/70 100 Room Air Intake and Output 04/23/19 04/24/19 19:00 07:00 Intake Total 2055 ml Balance 2055 ml IV Total 2055 ml # Voids 1 # Bowel Movements 4 Height (Feet): 5 Height (Inches): 10.00 Weight (Pounds): 285 Medications Current Medications Medications (Trade) Dose Ordered Sig/Kalani Route PRN Reason Start Time Stop Time Status Last Admin Dose Admin Acetaminophen (Tylenol) 650 mg Q4H PRN ORAL fever 04/23/19 22:00 05/23/19 21:59 04/24/19 01:42 Acetaminophen/ Hydrocodone Bitart ([place] 10/325) 1 tab Q4H PRN ORAL PAIN 1-6 04/24/19 13:45 05/01/19 12:29 Aripiprazole (Abilify) 5 mg DAILY ORAL 04/24/19 09:00 05/24/19 08:59 Bupropion HCl (Wellbutrin SR) 150 mg BID ORAL 04/24/19 09:00 05/24/19 08:59 04/24/19 17:16 Ciprofloxacin (Cipro 500mg tab) 500 mg EVERY 12 HOURS ORAL 04/24/19 16:41 05/01/19 16:40 04/24/19 16:54 Dextrose (Dextrose 50%) 25 ml Q30M PRN IV Hypoglycemia 04/23/19 22:00 05/23/19 21:59 Dextrose (Dextrose 50%) 50 ml Q30M PRN IV Hypoglycemia 04/23/19 22:00 05/23/19 21:59 Dextrose/Sodium Chloride 1,000 ml @ 75 mls/hr [id number] IV 04/23/19 21:53 05/23/19 21:52 Diphenhydramine HCl (Benadryl) 25 mg Q6H PRN ORAL Itching/Pruritis 04/23/19 22:00 05/23/19 21:59 Diphenhydramine HCl (Benadryl) 25 mg Q8H PRN IVP Itching 04/24/19 01:45 05/24/19 01:44 04/24/19 14:31 Heparin Sodium (Porcine) (Heparin 5000 units/ml) 5,000 units EVERY 12 HOURS SUBQ 04/24/19 09:00 05/24/19 08:59 Hydromorphone HCl 1 mg/Sodium Chloride 56 ml @ 224 mls/hr Q4H PRN IVPB PAIN 7-10 04/24/19 13:36 05/01/19 13:35 04/24/19 14:31 Iopamidol (Isovue-300 100ml) 100 ml NOW PRN INJ Radiology Procedure 04/23/19 12:45 Lorazepam (Ativan 2mg/ml 1ml) 1 mg Q4H PRN IV agitation 04/23/19 22:00 04/30/19 21:59 04/24/19 16:00 Metronidazole (Flagyl) 500 mg Q8HR ORAL 04/24/19 16:41 05/01/19 16:40 04/24/19 16:54 Nitroglycerin (Ntg) 0.4 mg Q5M X 3 DOSES PRN SL Prn Chest Pain 04/23/19 22:00 05/23/19 21:59 Ondansetron HCl (Zofran) 4 mg Q6H PRN IVP Nausea & Vomiting 04/23/19 22:00 05/23/19 21:59 Pantoprazole (Protonix) 40 mg DAILY IV 04/24/19 09:00 05/24/19 08:59 04/24/19 14:33 Polyethylene Glycol (Miralax) 17 gm HSPRN PRN ORAL Constipation 04/23/19 22:00 05/23/19 21:59 Quetiapine Fumarate (SEROquel) 100 mg DAILY ORAL 04/24/19 09:00 05/24/19 08:59 Sulfasalazine (Azulfidine) 500 mg FOUR TIMES A DAY ORAL 04/24/19 09:00 05/24/19 08:59 04/24/19 17:16 Temazepam (Restoril) 15 mg HSPRN PRN ORAL Insomnia 04/23/19 22:00 04/30/19 21:59 Assessment/Plan Assessment/Plan: (1) Crohn's Disease (2) Abdominal pain (3) Lumbar DDD (4) Lumbar Spondylosis (5) Narcotic Dependency seen dictated Storm Thornton Apr 24, 2019 17:49
--- NOTE | 2019-04-24 18:30 | History and Physical Report ---
DATE OF ADMISSION: 04/23/2019 CONSULTANTS: 1. Tyrell Kelley M.D. 2. Thomas Ding M.D. 3. Tylor Weller M.D. 4. Contreras Lewis M.D. CHIEF COMPLAINT: Abdominal pain and vomiting. HISTORY: This is a 49-year-old male, who lives at home, presented with the above-mentioned diagnoses, admitted to medical floor for further treatment. Currently, very angry in bed requesting only Dilaudid. No complaint. REVIEW OF SYSTEMS: No chest pain. No shortness of breath. Slight nausea. Slight vomiting. No diarrhea. PAST MEDICAL HISTORY: Abdominal pain, Crohn's disease, rectal bleed, and hypertension. PAST SURGICAL HISTORY: Stomach surgery and small-bowel colostomy as well. MEDICATIONS: Include ketorolac, Toradol, [place], Abilify, Wellbutrin, Seroquel, , Protonix, Benadryl, Tylenol, MiraLAX, Zofran, Restoril, nitroglycerin, and ceftriaxone. ALLERGIES: Codeine, morphine, and . SOCIAL HISTORY: Positive smoking. No alcohol. No intravenous drug abuse. FAMILY HISTORY: Noncontributory. PHYSICAL EXAMINATION: GENERAL: Anxious, angry in bed, oriented x3, slight distressing in pain. VITAL SIGNS: Show temperature is 98 degrees, pulse 87, respirations 20, and blood pressure 142/81. CARDIOVASCULAR: No murmurs. LUNGS: Distant and clear. ABDOMEN: Bowel sounds positive. Nontender. Nondistended. EXTREMITIES: No cyanosis or edema. NEUROLOGIC: The patient moves all extremities, slightly weak. LABORATORY AND DIAGNOSTIC DATA: Labs, at this time show, hemoglobin and hematocrit is 11 and 33, otherwise CBC is normal. BMP shows BUN 21. CK 514. Troponin 0.00. Urinalysis show 2+ leukocyte esterase. ASSESSMENT: 1. Abdominal pain. 2. Crohn's. 3. Vomiting. 4. UTI. 5. Rectal bleed. 6. Hypertension. 7. Anemia. PLAN: 1. Pain control. 2. GI followup. 3. Dietary followup. 4. Antibiotics per Infectious Disease. 5. Blood pressure control. 6. PT and dietary evaluation. 7. CBC and BMP in the morning. Young Hicks D.O. DR: LEIGHA JOB#: [id number] CC:
--- NOTE | 2019-04-24 19:07 | NUR ---
CASE MANAGEMENT: REVIEW 49Y/M MADI CC: ABD PAIN N/V . CROHN'S DISEASE FLARE UP SI: CROHN'S DISEASE T 98.1 HR 112 RR 17 BP 121/75 SAT 98% ROOM AIR H/H11.0/33.6 BUN 21 TOTAL CREATINE KINASE IS: SOLU MEDROL IV X1 CEFTRIAXONE IV X1 ZOFRAN IV X1 NS IVF BOLUS X1 DILAUDID IV X1 NPO PATIENT ADMITTED TO MED/SURG UNIT 04/24/2019 DCP: PATIENT REPORTS HOMELESSNESS
--- NOTE | 2019-04-24 19:16 | NUR ---
HAND-OFF: Report given to STEVE Wang.
--- NOTE | 2019-04-24 19:30 | NUR ---
NURSE NOTES: Received a report from STEVE Zheng. Pt is in stable condition. AAOX4. Able to make needs known. On room air. No c/o pain/discomfort. IV site is patent and intact. Bed in lowest position. Will continue to monitor.
[2019-04-24 20:00] VITALS: BP 134/86
--- NOTE | 2019-04-24 20:49 | Pulmonology Progress Note ---
Subjective Allergies: Coded Allergies: CODEINE (Unverified Allergy, Intermediate, 04/23/19) MORPHINE (Verified Allergy, Unknown, 04/29/16) PROCHLORPERAZINE (Verified Allergy, Unknown, 04/29/16) Objective Last 24 Hour Vital Signs Date Time Temp Pulse Resp B/P (MAP) Pulse Ox O2 Delivery O2 Flow Rate FiO2 04/24/19 20:00 97.9 93 18 134/86 (102) 96 04/24/19 19:07 98.4 04/24/19 15:01 98.4 04/24/19 09:00 Room Air 04/24/19 00:00 98.4 87 20 142/81 (101) 97 04/23/19 21:00 Room Air Intake and Output 04/23/19 04/24/19 19:00 07:00 Intake Total 2055 ml Balance 2055 ml IV Total 2055 ml # Voids 1 # Bowel Movements 4 Microbiology Date/Time Source Procedure Growth Status 04/23/19 15:50 Urine,Clean Catch Urine Culture - Preliminary Gram Negative Bacillus 1 Resulted Current Medications Medications (Trade) Dose Ordered Sig/Kalani Route PRN Reason Start Time Stop Time Status Last Admin Dose Admin Acetaminophen (Tylenol) 650 mg Q4H PRN ORAL fever 04/23/19 22:00 05/23/19 21:59 04/24/19 01:42 Acetaminophen/ Hydrocodone Bitart ([place] 10/325) 1 tab Q4H PRN ORAL PAIN 1-6 04/24/19 13:45 05/01/19 12:29 Aripiprazole (Abilify) 5 mg DAILY ORAL 04/24/19 09:00 05/24/19 08:59 Bupropion HCl (Wellbutrin SR) 150 mg BID ORAL 04/24/19 09:00 05/24/19 08:59 04/24/19 17:16 Ciprofloxacin (Cipro 500mg tab) 500 mg EVERY 12 HOURS ORAL 04/24/19 16:41 05/01/19 16:40 04/24/19 16:54 Dextrose (Dextrose 50%) 25 ml Q30M PRN IV Hypoglycemia 04/23/19 22:00 05/23/19 21:59 Dextrose (Dextrose 50%) 50 ml Q30M PRN IV Hypoglycemia 04/23/19 22:00 05/23/19 21:59 Dextrose/Sodium Chloride 1,000 ml @ 75 mls/hr [id number] IV 04/23/19 21:53 05/23/19 21:52 Diphenhydramine HCl (Benadryl) 25 mg Q6H PRN ORAL Itching/Pruritis 04/23/19 22:00 05/23/19 21:59 Diphenhydramine HCl (Benadryl) 25 mg Q8H PRN IVP Itching 04/24/19 01:45 05/24/19 01:44 04/24/19 14:31 Heparin Sodium (Porcine) (Heparin 5000 units/ml) 5,000 units EVERY 12 HOURS SUBQ 04/24/19 09:00 05/24/19 08:59 Hydromorphone HCl (Dilaudid) 2 mg Q4H PRN SUBQ severe pain 04/24/19 18:30 05/01/19 18:29 04/24/19 18:37 Iopamidol (Isovue-300 100ml) 100 ml NOW PRN INJ Radiology Procedure 04/23/19 12:45 Lorazepam (Ativan 2mg/ml 1ml) 1 mg Q4H PRN IV agitation 04/23/19 22:00 04/30/19 21:59 04/24/19 16:00 Metronidazole (Flagyl) 500 mg Q8HR ORAL 04/24/19 16:41 05/01/19 16:40 04/24/19 16:54 Nitroglycerin (Ntg) 0.4 mg Q5M X 3 DOSES PRN SL Prn Chest Pain 04/23/19 22:00 05/23/19 21:59 Ondansetron HCl (Zofran) 4 mg Q6H PRN IVP Nausea & Vomiting 04/23/19 22:00 05/23/19 21:59 Pantoprazole (Protonix) 40 mg DAILY IV 04/24/19 09:00 05/24/19 08:59 04/24/19 14:33 Polyethylene Glycol (Miralax) 17 gm HSPRN PRN ORAL Constipation 04/23/19 22:00 05/23/19 21:59 Quetiapine Fumarate (SEROquel) 100 mg DAILY ORAL 04/24/19 09:00 05/24/19 08:59 Sulfasalazine (Azulfidine) 500 mg FOUR TIMES A DAY ORAL 04/24/19 09:00 05/24/19 08:59 04/24/19 17:16 Temazepam (Restoril) 15 mg HSPRN PRN ORAL Insomnia 04/23/19 22:00 04/30/19 21:59 Tyrell Kelley MD Apr 24, 2019 20:49
--- NOTE | 2019-04-24 21:00 | NUR ---
NURSE NOTES: Pt is verbally abusive towards staff. She keeps cursing at everyone because she wants her Dilaudid 2mg subq to be changed to IVP. Charge Nurse Pat made aware.
--- NOTE | 2019-04-24 21:30 | NUR ---
NURSE NOTES: Called BARRERA Thornton and Dr. Lewis about the pt is asking to change the Dilaudid 2mg subq to IVP, both Dr. Lewis and BARRERA Thornton said that the pt cannot have the Dilaudid IVP. Charge Nurse Pat and Nursing Final Canoe Inspector Leona made aware.
[2019-04-24] MEDS ORDERED: HYDROmorphone 1mg/NS 50ml IVPB 50 ML IVPB PRN (22:45)
[2019-04-24] MEDS ORDERED: HYDROmorphone 1mg/ml Carpuject ONE (23:38)
--- NOTE | 2019-04-24 23:40 | NUR ---
NURSE NOTES: Nursing gas station supervisor Leona called the pharmacist Blake Mitchell. According to Blake Mitchell, it is okay to mix the Dilaudid 1mg with NS 50ml. Charge Nurse Pat Ulloa RN mixing the medication. Nursing gas station supervisor made aware.
[2019-04-24] MEDS: HYDROmorphone 1mg/NS 50ml IVPB 50 ML IVPB PRN (23:46)
[2019-04-25] VITALS: BP 125/78
--- NOTE | 2019-04-25 | NUR ---
NURSE NOTES: Educated the pt that she cannot eat or drink because she is scheduled to have US of abdomen later. She told Laila WILSON that she will not do it. Charge Nurse Pat made aware.
[2019-04-25] MEDS: D5 1/2NS 1,000 ML IV SCH ×2 (00:05→13:34)
[2019-04-25] MEDS: metroNIDAZOLE 500mg tab ORAL SCH ×5 (05:15→22:00)
--- NOTE | 2019-04-25 06:00 | NUR ---
NURSE NOTES: Pt refused the blood draw. Charge Nurse Pat made aware.
--- NOTE | 2019-04-25 06:00 | Consultation ---
DATE OF CONSULTATION: 04/25/2019 REFERRING PHYSICIAN: Young Hicks D.O. CONSULTING PHYSICIAN: Contreras Lewis M.D. PHYSICIAN CNC MILLING MACHINE OPERATOR: Fredy Garza CHIEF COMPLAINT: Abdominal pain and low back pain. HISTORY OF PRESENT ILLNESS: This is a 49-year-old transgender male to female patient, who is being seen on the Med/Surg floor of [facility] for a comprehensive pain management consultation. The patient is a known patient from prior hospital admissions, now returned to [facility] with abdominal pain due to Crohn's disease flare up, being seen by a stone decorator at this time. We were consulted so the patient would have adequate pain control while here in the hospital. He was started on Dilaudid 1 mg IV piggyback every 4 hours as needed for pain, which the patient does not want to continue this medication. We will start him on Dilaudid subcutaneous injection. He seems to understand and has no other complaints. REVIEW OF SYSTEMS: Denies rash, fever, chills, sweating, dizziness, drowsiness, or change in weight. No shortness of breath or chest pain. No nausea, vomiting, or blood in the stool. No bowel or bladder incontinence. No dysuria. He complains of abdominal pain. PHYSICAL EXAMINATION: GENERAL: Alert and oriented. VITAL SIGNS: Blood pressure 142/81, heart rate 77, oxygen saturation 90%, respirations 20. Temperature 98.4 degrees Fahrenheit. LUNGS: Decreased breath sounds bilaterally. HEART: S1 and S2 regular. ABDOMEN: Obese. EXTREMITIES: No cyanosis, no clubbing. NEUROLOGICAL: No focal deficit. ASSESSMENT AND PLAN: This is a 49-year-old male with Crohn disease and abdominal pain, lumbar degenerative disease, lumbar spondylosis, narcotic dependency. The patient is presently on Dilaudid IV piggyback, started on Dilaudid 2 mg subcutaneous every 4 hours as needed for severe pain. The patient was discussed with Dr. Lewis and he concurred. We will follow the patient. Thank you very much for the courtesy of this consultation. Contreras Lewis M.D. BARRERA Garza DR: SEJAL JOB#: [id number] CC: TERE
--- NOTE | 2019-04-25 06:53 | NUR ---
HAND-OFF: Report given to Jagjit Mays RN.
[2019-04-25] MEDS: Ciprofloxacin 500mg tab ORAL SCH ×3 (08:22→21:51)
[2019-04-25] MEDS: BuPROPion SR 150mg tab ORAL SCH ×2 (08:22→18:00)
[2019-04-25] MEDS: Pantoprazole Inj IV SCH (08:22)
[2019-04-25] MEDS: SulfASALAZine 500MG tab ORAL SCH ×6 (08:22→21:51)
[2019-04-25] MEDS: LORazepam Inj 2mg/ml 1ml IV PRN ×4 (08:22→21:14)
[2019-04-25] MEDS: DiphenhydrAMINE 50mg/ml Inj IVP PRN ×3 (08:23→21:16)
[2019-04-25] MEDS: Heparin 5000 units/ml inj SUBQ SCH ×2 (08:29→21:54)
[2019-04-25] MEDS: HYDROmorphone 1mg/NS 50ml IVPB 50 ML IVPB PRN ×3 (08:45→21:31)
--- NOTE | 2019-04-25 08:57 | General Progress Note ---
Assessment/Plan Assessment/Plan: (1) Crohn's Disease (2) Abdominal pain (3) Lumbar DDD (4) Lumbar Spondylosis (5) Narcotic Dependency Patient to be continued on Dilaudid and [place]. D/w Dr. Lewis and he concurred. Subjective Date patient seen: Apr 25, 2019 Time patient seen: 08:30 - am Constitutional: Reports: no symptoms HEENT: Reports: no symptoms Cardiovascular: Reports: no symptoms Respiratory: Reports: no symptoms Gastrointestinal/Abdominal: Reports: no symptoms Genitourinary: Reports: no symptoms Neurologic/Psychiatric: Reports: no symptoms Endocrine: Reports: no symptoms Hematologic/Lymphatic: Reports: no symptoms Allergies: Coded Allergies: CODEINE (Unverified Allergy, Intermediate, 04/23/19) MORPHINE (Verified Allergy, Unknown, 04/29/16) PROCHLORPERAZINE (Verified Allergy, Unknown, 04/29/16) Subjective Patient is in bed and no signs of pain. Dilaudid switched back to IVPB 1mg. D/w GI no active Crohns flare. Objective Last 24 Hour Vital Signs Date Time Temp Pulse Resp B/P (MAP) Pulse Ox O2 Delivery O2 Flow Rate FiO2 04/25/19 00:00 97.8 84 18 125/78 (94) 96 04/24/19 21:00 Room Air 04/24/19 20:00 97.9 93 18 134/86 (102) 96 04/24/19 19:07 98.4 04/24/19 15:01 98.4 04/24/19 09:00 Room Air Intake and Output 04/24/19 04/25/19 19:00 07:00 Intake Total 896 ml 224 ml Balance 896 ml 224 ml Intake Oral 840 ml IV Total 56 ml 224 ml # Voids 4 Laboratory Tests 04/24/19 20:40: Stool Occult Blood [Pending] Height (Feet): 5 Height (Inches): 10.00 Weight (Pounds): 285 General Appearance: no apparent distress, alert EENT: PERRL/EOMI, normal ENT inspection Neck: non-tender, normal alignment Cardiovascular: normal rate, regular rhythm Respiratory/Chest: lungs clear, normal breath sounds Abdomen: non tender, soft Extremities: non-tender Edema: no edema noted Arm (L), no edema noted Arm (R), no edema noted Leg (L), no edema noted Leg (R), no edema noted Pedal (L), no edema noted Pedal (R), no edema noted Generalized Neurologic: alert, responsive Skin: normal pigmentation Storm Thornton Apr 25, 2019 08:57
--- NOTE | 2019-04-25 09:15 | NUR ---
NURSE NOTES: RN HELD HEPARIN SCHEDULED FOR 0900HRS. PT REPORTS BLOOD IN STOOL AND STOOL OB STILL PENDING.
--- NOTE | 2019-04-25 10:51 | NUR ---
NURSE NOTES: PT PREFERS TO BE CALLED "[facility]". PER [facility], PT STATES SHE IS SUPPOSED TO BE TRANSFERRED TO [facility]. PT STATES SHE DOESN'T WANT THE LOCKBOX IV DILAUDID. RN EDUCATED PT IT IS HOSPITAL PROTOCOL TO HAVE LOCKBOX FOR IV NARCOTIC MEDICATIONS. PT STATES "THAT'S RIDICULOUS. I'M SUPPOSED TO GO TO [facility], THIS IS NONSENSE". RN EDUCATED PT THERE IS A CASE MANAGEMENT ORDER FOR TRANSFER TO [facility] AND RN WILL UPDATE PT ON ANY UPDATES FROM CASE MANAGEMENT. PT WAS EDUCATED ON PRN ATIVAN, DILAUDID, AND BENADRYL SCHEDULE. PT VERBALIZED UNDERSTANDING. WILL CONTINUE TO MONITOR.
--- NOTE | 2019-04-25 10:51 | NUR ---
Social Work This Sw received notification regarding patient is homeless. This Sw met with patient who is currently requesting to be transferred to [facility] (pending insurance at this time). Patient explains "I'm not homeless, I live in a [facility]." Patient unable to recall address, phone number or name of the home at this time. This Sw made attempts to contact the phone number provided for patients current address: [phone], which is not a working number at this time. SW to follow, as needed (regarding discharge back to [facility]), if unable to transfer to [facility]. Patient refusing to answer any further questions from this SW; falling asleep. Patient appears unarousable due to current pain medications.
--- NOTE | 2019-04-25 10:53 | NUR ---
NURSE NOTES: PT IS REFUSING ULTRASOUND ABDOMEN. NURY FROM ULTRASOUND MADE AWARE.
--- NOTE | 2019-04-25 11:00 | NUR ---
NURSE NOTES: PT REFUSING LABS AND VITAL SIGNS. PT WAS EDUCATED RISKS OF REFUSING LABS AND VITAL SIGNS. PT DOES NOT RESPOND TO RN'S TEACHING AND IGNORES RN.
--- NOTE | 2019-04-25 11:19 | GI Progress Note ---
Assessment/Plan Problems: (1) C. difficile colitis ICD Codes: A04.72 - Enterocolitis due to Clostridium difficile, not specified as recurrent SNOMED: 282525465 (2) Substance abuse ICD Codes: F19.10 - Other psychoactive substance abuse, uncomplicated SNOMED: 43099853 (3) Vomiting ICD Codes: R11.10 - Vomiting, unspecified SNOMED: 725443475 (4) Abdominal pain ICD Codes: R10.9 - Unspecified abdominal pain SNOMED: 31837768 (5) Crohns disease ICD Codes: K50.90 - Crohn's disease, unspecified, without complications SNOMED: 72281154 Qualifiers: Qualified Codes: K50.919 - Crohn's disease, unspecified, with unspecified complications Status: unchanged Status Narrative Discussed with Dr. Weller. Assessment/Plan Abdominal pelvis CT reviewed mainly unremarkable. Evidence of previous bowel surgery including partial rectosigmoid resection and small bowel resection. Status post appendectomy. Abdominal ultrasound refused by patient. am labs refused by patient Follow-up ESR and CRP to rule out Crohn's flare, most likely is not. Obtain occult blood stool to rule out any GI bleed Advance diet as tolerated Pain management per recommendations Zofran as needed PPI IV and p.o. hydration plus electrolyte correction We will collect for C. difficile if patient has persistent diarrhea to rule out rule out infectious colitis follow labs The patient was seen and examined at bedside and all new and available data was reviewed in the patients chart. I agree with the above findings, impression and plan. (Patient seen earlier today. Signature stamp does not reflect patient encounter time.). - Tylor Weller MD Subjective Subjective abdominal pain Objective Last 24 Hour Vital Signs Date Time Temp Pulse Resp B/P (MAP) Pulse Ox O2 Delivery O2 Flow Rate FiO2 04/25/19 09:00 Room Air 04/25/19 00:00 97.8 84 18 125/78 (94) 96 04/24/19 21:00 Room Air 04/24/19 20:00 97.9 93 18 134/86 (102) 96 04/24/19 19:07 98.4 04/24/19 15:01 98.4 Intake and Output 04/24/19 04/25/19 19:00 07:00 Intake Total 896 ml 224 ml Balance 896 ml 224 ml Intake Oral 840 ml IV Total 56 ml 224 ml # Voids 4 Laboratory Tests Test 04/24/19 20:40 Stool Occult Blood Pending Microbiology Date/Time Source Procedure Growth Status 04/24/19 20:40 Stool Stool Culture Pending Resulted 04/24/19 20:40 Stool Clostridium difficile Toxin Assay - Final Resulted Height (Feet): 5 Height (Inches): 10.00 Weight (Pounds): 285 General Appearance: WD/WN, no apparent distress, alert Cardiovascular: normal rate Respiratory/Chest: normal breath sounds, no respiratory distress Abdominal Exam: normal bowel sounds, non tender, soft Extremities: normal range of motion, non-tender Noreen Alvarez NP Apr 25, 2019 11:19
--- NOTE | 2019-04-25 12:54 | General Progress Note ---
Assessment/Plan Problem List: (1) UTI (urinary tract infection) ICD Codes: N39.0 - Urinary tract infection, site not specified SNOMED: 08017650 (2) Abdominal pain ICD Codes: R10.9 - Unspecified abdominal pain SNOMED: 46245678 (3) Vomiting ICD Codes: R11.10 - Vomiting, unspecified SNOMED: 760352200 (4) Crohns disease ICD Codes: K50.90 - Crohn's disease, unspecified, without complications SNOMED: 01340261 Qualifiers: Qualified Codes: K50.919 - Crohn's disease, unspecified, with unspecified complications Status: stable, progressing Assessment/Plan: abx pain control cbc bmp am dc plan Subjective Constitutional: Reports: weakness Allergies: Coded Allergies: CODEINE (Unverified Allergy, Intermediate, 04/23/19) MORPHINE (Verified Allergy, Unknown, 04/29/16) PROCHLORPERAZINE (Verified Allergy, Unknown, 04/29/16) All Systems: reviewed and negative except above Subjective sleepy in bed Objective Last 24 Hour Vital Signs Date Time Temp Pulse Resp B/P (MAP) Pulse Ox O2 Delivery O2 Flow Rate FiO2 04/25/19 09:00 Room Air 04/25/19 00:00 97.8 84 18 125/78 (94) 96 04/24/19 21:00 Room Air 04/24/19 20:00 97.9 93 18 134/86 (102) 96 04/24/19 19:07 98.4 04/24/19 15:01 98.4 Intake and Output 04/24/19 04/25/19 19:00 07:00 Intake Total 896 ml 224 ml Balance 896 ml 224 ml Intake Oral 840 ml IV Total 56 ml 224 ml # Voids 4 Laboratory Tests 04/24/19 20:40: Stool Occult Blood Negative Height (Feet): 5 Height (Inches): 10.00 Weight (Pounds): 285 General Appearance: lethargic EENT: normal ENT inspection Neck: normal alignment Cardiovascular: normal peripheral pulses, normal rate, regular rhythm Respiratory/Chest: chest wall non-tender, lungs clear, normal breath sounds Abdomen: normal bowel sounds, non tender, soft Extremities: normal inspection Edema: no edema noted Arm (L), no edema noted Arm (R), no edema noted Leg (L), no edema noted Leg (R), no edema noted Pedal (L), no edema noted Pedal (R), no edema noted Generalized Neurologic: motor weakness Skin: normal pigmentation, warm/dry Young Hicks DO Apr 25, 2019 12:54
--- NOTE | 2019-04-25 13:27 | Infectious Diseases Prog Note ---
Assessment/Plan Assessment/Plan Assessment: Abd pain, v/d- ?gastroenteritis vs Chron's flare (however CT with no inflammation) -CT abd/p: No acute findings are appreciated. No significant interval change. Ventral abdominal hernias as described above. No associated inflammation or bowel obstruction. Small left adrenal mass unchanged from 2016 likely adenoma. Evidence of previous bowel surgery including partial rectosigmoid resection and small bowel resection. Status post appendectomy. Multiple cysts within the left kidney. Bilateral extrarenal pelvis configuration. Malrotation of the right kidney. Mild posterior basilar atelectasis. -Cdiff neg -stool cx: p Afebrile No leukocytosis -CXR: no acute findings UTI (+dysuria) -u/a wbc 10-15, nit neg, leuk +2; ucx 40-50k E.coli (R amp, Cipro/levo; otherwise negative) Chrons (dx 20 years ago) on mesalamine obesity anemia hemorrhoidal pain HTN TB 1988 Plan: -Cont empiric Cipro and Flagyl #2/5-7 -04/23 SP Ceftriaxone x1 -f/u cx -Monitor CBC/CMP, temperatures -f/u stool cx, Cdiff -GI f/u -supportive treatment Thank you for this consultation. Will continue to follow along with you. Discussed with RN Subjective Allergies: Coded Allergies: CODEINE (Unverified Allergy, Intermediate, 04/23/19) MORPHINE (Verified Allergy, Unknown, 04/29/16) PROCHLORPERAZINE (Verified Allergy, Unknown, 04/29/16) Subjective afebrile no leukocytosis Objective Vital Signs Last 24 Hour Vital Signs Date Time Temp Pulse Resp B/P (MAP) Pulse Ox O2 Delivery O2 Flow Rate FiO2 04/25/19 09:00 Room Air 04/25/19 00:00 97.8 84 18 125/78 (94) 96 04/24/19 21:00 Room Air 04/24/19 20:00 97.9 93 18 134/86 (102) 96 04/24/19 19:07 98.4 04/24/19 15:01 98.4 Height (Feet): 5 Height (Inches): 10.00 Weight (Pounds): 285 Objective General Appearance: well appearing, no apparent distress, alert Head: normocephalic EENT: PERRL/EOMI, normal ENT inspection Neck: supple Respiratory: normal breath sounds, no respiratory distress Cardiovascular: normal rate Gastrointestinal: normal inspection, non tender, soft, normal bowel sounds, non -distended Musculoskeletal: normal inspection, back normal Neurologic: normal inspection, alert, oriented x3, responsive Psychiatric: normal inspection, judgement/insight normal, memory normal Skin: normal inspection, normal color, no rash, warm/dry, palpation normal, well hydrated Lymphatic: normal inspection, no adenopathy Microbiology Date/Time Source Procedure Growth Status 04/24/19 20:40 Stool Stool Culture Pending Resulted 04/24/19 20:40 Stool Clostridium difficile Toxin Assay - Final Resulted 04/23/19 15:50 Urine,Clean Catch Urine Culture - Final Escherichia Coli Mixed Gram Positive Organism Complete Laboratory Tests Test 04/24/19 20:40 Stool Occult Blood Negative (NEGATIVE) Current Medications Medications (Trade) Dose Ordered Sig/Kalani Route PRN Reason Start Time Stop Time Status Last Admin Dose Admin Acetaminophen (Tylenol) 650 mg Q4H PRN ORAL fever 04/23/19 22:00 05/23/19 21:59 04/24/19 01:42 Acetaminophen/ Hydrocodone Bitart ([place] 10/325) 1 tab Q4H PRN ORAL PAIN 1-6 04/24/19 13:45 05/01/19 12:29 Aripiprazole (Abilify) 5 mg DAILY ORAL 04/24/19 09:00 05/24/19 08:59 04/25/19 08:22 Bupropion HCl (Wellbutrin SR) 150 mg BID ORAL 04/24/19 09:00 05/24/19 08:59 04/25/19 08:22 Ciprofloxacin (Cipro 500mg tab) 500 mg EVERY 12 HOURS ORAL 04/24/19 16:41 05/01/19 16:40 04/25/19 08:22 Dextrose (Dextrose 50%) 25 ml Q30M PRN IV Hypoglycemia 04/23/19 22:00 05/23/19 21:59 Dextrose (Dextrose 50%) 50 ml Q30M PRN IV Hypoglycemia 04/23/19 22:00 05/23/19 21:59 Dextrose/Sodium Chloride 1,000 ml @ 75 mls/hr [id number] IV 04/23/19 21:53 05/23/19 21:52 Diphenhydramine HCl (Benadryl) 25 mg Q6H PRN ORAL Itching/Pruritis 04/23/19 22:00 05/23/19 21:59 Diphenhydramine HCl (Benadryl) 25 mg Q8H PRN IVP Itching 04/24/19 01:45 05/24/19 01:44 04/25/19 08:23 Heparin Sodium (Porcine) (Heparin 5000 units/ml) 5,000 units EVERY 12 HOURS SUBQ 04/24/19 09:00 05/24/19 08:59 Hydromorphone HCl 50 ml @ 224 mls/hr Q4H PRN IVPB For Pain 04/24/19 22:45 05/24/19 22:44 04/25/19 08:45 Iopamidol (Isovue-300 100ml) 100 ml NOW PRN INJ Radiology Procedure 04/23/19 12:45 Lorazepam (Ativan 2mg/ml 1ml) 1 mg Q4H PRN IV agitation 04/23/19 22:00 04/30/19 21:59 04/25/19 08:22 Metronidazole (Flagyl) 500 mg Q8HR ORAL 04/24/19 16:41 05/01/19 16:40 04/24/19 16:54 Nitroglycerin (Ntg) 0.4 mg Q5M X 3 DOSES PRN SL Prn Chest Pain 04/23/19 22:00 05/23/19 21:59 Ondansetron HCl (Zofran) 4 mg Q6H PRN IVP Nausea & Vomiting 04/23/19 22:00 05/23/19 21:59 Pantoprazole (Protonix) 40 mg DAILY IV 04/24/19 09:00 05/24/19 08:59 04/25/19 08:22 Polyethylene Glycol (Miralax) 17 gm HSPRN PRN ORAL Constipation 04/23/19 22:00 05/23/19 21:59 Quetiapine Fumarate (SEROquel) 100 mg DAILY ORAL 04/24/19 09:00 05/24/19 08:59 04/25/19 08:22 Sulfasalazine (Azulfidine) 500 mg FOUR TIMES A DAY ORAL 04/24/19 09:00 05/24/19 08:59 04/25/19 08:22 Temazepam (Restoril) 15 mg HSPRN PRN ORAL Insomnia 04/23/19 22:00 04/30/19 21:59 Brianna Proctor M.D. Apr 25, 2019 13:27
--- NOTE | 2019-04-25 14:20 | NUR ---
NURSE NOTES: RN SPOKE TO PHARMACY AND PREMIX DILAUDID 1MG NOT READY. PT MADE AWARE. PT BECAME REALLY IRRITATED AND STARTED YELLING "THIS IS INAPPROPRIATE! IT'S NONSENSE! WHY I GOTTA WAIT 30 MINUTES TO GET MY MEDICATION?!". RN EXPLAINED TO PT, PHARMACY WILL HAVE IT READY IN 5-10MIN, NOT 30 MINUTES. RN OBTAINED PREMIX DILAUDID AND PT STATES BURNING OF IV ACCESS OF LEFT UPPER ARM. PT WANTS NEW IV ACCESS. RN ATTEMPTED WITH VEIN FINDER. RN UNABLE TO OBTAIN IV ACCESS. CRN ATTEMPTED, PT REFUSED. RN WASTED PRN ATIVAN 2MG VIAL AND WASTED PREMIX DILAUDID 1MG AT PHARMACY. PT RESTING IN BED. PT STATES SHE DOES NOT WANT TO BE BOTHERED.
--- NOTE | 2019-04-25 18:30 | NUR ---
NURSE NOTES: PT COMES OUT OF ROOM AND TELLS RN, "I WANT ALL MY MEDICATIONS". RN CALLED NIEVES MONTANEZ AND MADE AWARE WE NEED AN RN TO OBTAIN IV ACCESS. RN MADE PT AWARE NIEVES MONTANEZ WILL BE SENDING ANOTHER NURSE TO ATTEMPT IV ACCESS. PT BECAME REALLY ANGRY, STARTED YELLING AND WENT TO NURSES STATION "THIS IS RIDICULOUS! I'M NOT GONNA WAIT ANY LONGER! I WANT MY MEDS NOW!" PT GOES INTO 4 EAST ELEVATOR AND SAYS "I'M GONNA FIND YOUR SPECIAL EDUCATION MATH TEACHER NOW!" CRN AND RNs AT THE STATION ATTEMPTED TO TELL PT SHE CANNOT LEAVE THE FLOOR. RN CALLED SECURITY AND MADE AWARE. NIEVES MONTANEZ CALLED RN AND STATED PT CAME TO 2 EAST TO FIND HER. 2 ICU RNs ARRIVED ON FLOOR WITH PT AND INSERTED RIGHT AC G20. RN CALLED PHARMACY AND MADE AWARE THERE IS IV ACCESS AND PT REQUESTING IV DILAUDID 1MG PREMIX. PER PHARMACY, IT WILL TAKE 20-30MIN TO MAKE IV DILAUDID PREMIX. RN BROUGHT IV ATIVAN AND IV BENADRYL FOR PT. RN EXPLAINED TO PT, PHARMACY WILL NEED 20-30MIN TO MAKE THE MEDICATION BUT RN BROUGHT IV ATIVAN AND IV BENADRYL. PT THREW HIS MEAL TRAY ON THE FLOOR AND STARTED YELLING "I'M NOT ABOUT TO WAIT FOR THIS! YA'LL CAN'T DO ME LIKE THIS! I AM NOT A CRIMINAL! PUTTING A LOCK ON MY MEDICATIONS. IF I WANTED DRUGS, I WOULD'VE ASKED MY FAMILY. I WOULDN'T COME ALL THE WAY HERE FOR THIS!". RN ASKED PT IF HE WOULD LIKE TO STILL GET IV ATIVAN AND IV BENADRYL WHILE WAITING FOR THE IV DILAUDID. PT STATED TO RN "GIVE IT TO ME NOW AND GET OUT OF MY FACE". RN FLUSHED THE RIGHT AC IV LINE WITH STERILE NS AND PUSHED IV BENADRYL 25MG. PT JOLTED AND YELLED "OOW! IT'S BURNING! WHAT WAS THAT?!". RN FLUSHED THE IV ACCESS AND PT SCREAMED "IT'S BURNING! CALL MY DOCTOR! I WANT MY DOCTOR IN HERE RIGHT NOW!". RN REMOVED IV ACCESS AND APPLIED DRESSING OVER RIGHT AC.
--- NOTE | 2019-04-25 19:00 | NUR ---
NURSE NOTES: PT CAME OUT OF ROOM YELLING "I'M BLEEDING OUT! CALL MY DOCTOR! I WANT THE DOCTOR TO SEE WHAT YOU DID!". PT'S RIGHT AC DRESSING WAS SATURATED. RN REMOVED SATURATED DRESSING. PREVIOUS SITE OF RIGHT AC STOPPED BLEEDING. RN SHOWED PT THE DRESSING WAS SATURATED BUT THE BLEEDING HAS STOPPED. PT WAS ON THE PHONE WITH INSURANCE COMPANY AT THIS TIME. RN APPLIED PRESSURE DRESSING TO AREA. PT IN NO APPARENT DISTRESS AT THIS TIME.
--- NOTE | 2019-04-25 20:01 | NUR ---
HAND-OFF: Report given to Nader OLIVER RN.
--- NOTE | 2019-04-25 20:02 | NUR ---
NURSE NOTES: Received patient in no apparent distress. A&OX4. NO IV site noted. Bed in lowest position. Call light within reach. Will continue to monitor.
--- NOTE | 2019-04-25 20:14 | NUR ---
CASE MANAGEMENT: REVIEW SI: CROHN'S DISEASE T 97.8 HR 84 RR 18 BP 125/78 SAT 96% ROOM AIR IS: CIPRO 500MG PO Q12HR FLAGYL PO Q8HR SULFASALAZINE PO QID D5 1/2 IVF @75ML/HR MED/SURG STATUS DCP: PATIENT REPORTS HOMELESSNESS
--- NOTE | 2019-04-25 21:14 | NUR ---
NURSE NOTES: Noticed Benadryl 25mg iv and Ativan 1mg was given at 1903 but not actually given due to IV issue. Patient came to the nursing station, explained to the nurse and charge nurse. Per patient, when get the IV Benadryl, it was pain. Patient asked removed IV. Thus, Benadryl and Ativan was not given that time. Nurse contacted previous nurse and confirmed it's not given.
--- NOTE | 2019-04-25 21:15 | NUR ---
NURSE NOTES: Per patient, previous IV was inserted by ICU nurse and they put the IV in the artery.
--- NOTE | 2019-04-25 21:30 | NUR ---
NURSE NOTES: Patient refused Sulfasalazine, Ciprofloxacin, metronidazole. Explained risk and benefit but still refused.
--- NOTE | 2019-04-25 22:40 | NUR ---
NURSE NOTES: Patient c/o cramping abdomen and shaking. Patient says "I am having EPS". Notified Dr. Hicks and Norberto RUST. Waiting a call back.
--- NOTE | 2019-04-25 23:00 | NUR ---
NURSE NOTES: Patient calm now and sleeping.
[2019-04-26] MEDS: D5 1/2NS 1,000 ML IV SCH ×2 (03:13→16:24)
[2019-04-26] MEDS: HYDROmorphone 1mg/NS 50ml IVPB 50 ML IVPB PRN ×3 (04:41→21:05)
[2019-04-26] MEDS: DiphenhydrAMINE 50mg/ml Inj IVP PRN ×2 (05:34→16:22)
--- NOTE | 2019-04-26 05:58 | NUR ---
NURSE NOTES: Patient refused Metronidazole and blood lab draw. Explained risk and benefit but still refused.
[2019-04-26] MEDS: metroNIDAZOLE 500mg tab ORAL SCH ×2 (06:00→14:00)
--- NOTE | 2019-04-26 07:39 | NUR ---
HAND-OFF: Report given to Cherri WILSON.
--- NOTE | 2019-04-26 08:00 | NUR ---
NURSE NOTES: RN unable to take VS d/t patient asleep. tried to wake up the patient, but patient still sleeping. breathing even and unlabored. no facial grimacing during assessment. patient repositioned himself. noted emptied water, juice. continue to monitor. Addendum: 04/26/19 at 1248 by LOYDA GARNETT RN clarified charting time. STEVE performed care @[id number]
--- NOTE | 2019-04-26 08:02 | NUR ---
NURSE NOTES:thelma received report from STEVE Frost. patient in bed sleeping. no respiratory distress noted. IV on GABRIELLE 24g saline lock. bed in the lowest position. call light within reach. will continue to provide plan of care.
--- NOTE | 2019-04-26 08:45 | General Progress Note ---
Assessment/Plan Assessment/Plan: (1) Crohn's Disease (2) Abdominal pain (3) Lumbar DDD (4) Lumbar Spondylosis (5) Narcotic Dependency Patient to be continued on Dilaudid and Kincaid. D/w Dr. Lewis and he concurred. Subjective Date patient seen: Apr 26, 2019 Time patient seen: 07:15 - am Constitutional: Reports: no symptoms HEENT: Reports: no symptoms Cardiovascular: Reports: no symptoms Respiratory: Reports: no symptoms Gastrointestinal/Abdominal: Reports: no symptoms Genitourinary: Reports: no symptoms Neurologic/Psychiatric: Reports: no symptoms Endocrine: Reports: no symptoms Hematologic/Lymphatic: Reports: no symptoms Allergies: Coded Allergies: CODEINE (Unverified Allergy, Intermediate, 04/23/19) MORPHINE (Verified Allergy, Unknown, 04/29/16) PROCHLORPERAZINE (Verified Allergy, Unknown, 04/29/16) Subjective Patient is in bed resting no signs of pain or distress. Continues to get the Dilaudid IVPB as needed. No new complaints at this time. Objective Last 24 Hour Vital Signs Date Time Temp Pulse Resp B/P (MAP) Pulse Ox O2 Delivery O2 Flow Rate FiO2 04/25/19 21:00 Room Air 04/25/19 09:00 Room Air Intake and Output 04/25/19 04/26/19 19:00 07:00 Intake Total 50 ml Balance 50 ml IV Total 50 ml Height (Feet): 5 Height (Inches): 10.00 Weight (Pounds): 284 General Appearance: no apparent distress, alert EENT: PERRL/EOMI, normal ENT inspection Neck: non-tender, normal alignment Cardiovascular: normal rate, regular rhythm Respiratory/Chest: lungs clear, normal breath sounds Abdomen: non tender, soft Extremities: non-tender Edema: no edema noted Arm (L), no edema noted Arm (R), no edema noted Leg (L), no edema noted Leg (R), no edema noted Pedal (L), no edema noted Pedal (R), no edema noted Generalized Neurologic: alert, responsive Skin: warm/dry Storm Thornton Apr 26, 2019 08:45
[2019-04-26] MEDS: Ciprofloxacin 500mg tab ORAL SCH (09:00)
[2019-04-26] MEDS: Pantoprazole Inj IV SCH (09:00)
[2019-04-26] MEDS: BuPROPion SR 150mg tab ORAL SCH ×2 (09:00→18:40)
[2019-04-26] MEDS: SulfASALAZine 500MG tab ORAL SCH ×4 (09:00→21:04)
[2019-04-26] MEDS: Heparin 5000 units/ml inj SUBQ SCH ×2 (09:00→21:05)
--- NOTE | 2019-04-26 10:00 | NUR ---
NURSE NOTES: RN unable to administer mediations d/t patient asleep. tried to wake her up. still sleeping. breathing even and unlabored. no facial grimacing during rounding. noted emptied juices. patient repositioned herself.
--- NOTE | 2019-04-26 10:54 | GI Progress Note ---
Assessment/Plan Problems: (1) C. difficile colitis ICD Codes: A04.72 - Enterocolitis due to Clostridium difficile, not specified as recurrent SNOMED: 721514575 (2) Substance abuse ICD Codes: F19.10 - Other psychoactive substance abuse, uncomplicated SNOMED: 51340937 (3) Vomiting ICD Codes: R11.10 - Vomiting, unspecified SNOMED: 709926170 (4) Abdominal pain ICD Codes: R10.9 - Unspecified abdominal pain SNOMED: 95246920 (5) Crohns disease ICD Codes: K50.90 - Crohn's disease, unspecified, without complications SNOMED: 81828513 Qualifiers: Qualified Codes: K50.919 - Crohn's disease, unspecified, with unspecified complications Status: stable Status Narrative Discussed with Dr. Weller. Assessment/Plan Abdominal pelvis CT reviewed mainly unremarkable. Evidence of previous bowel surgery including partial rectosigmoid resection and small bowel resection. Status post appendectomy. Abdominal ultrasound refused by patient. OB stool negative okay for DC per GI standpoint Follow-up ESR and CRP to rule out Crohn's flare, most likely is not. Advance diet as tolerated Pain management per recommendations Zofran as needed PPI IV and p.o. hydration plus electrolyte correction follow labs The patient was seen and examined at bedside and all new and available data was reviewed in the patients chart. I agree with the above findings, impression and plan. (Patient seen earlier today. Signature stamp does not reflect patient encounter time.). - Tylor Weller MD Subjective Subjective abdominal pain Objective Last 24 Hour Vital Signs Date Time Temp Pulse Resp B/P (MAP) Pulse Ox O2 Delivery O2 Flow Rate FiO2 04/26/19 09:00 Room Air 04/25/19 21:00 Room Air Intake and Output 04/25/19 04/26/19 19:00 07:00 Intake Total 50 ml Balance 50 ml IV Total 50 ml Height (Feet): 5 Height (Inches): 10.00 Weight (Pounds): 284 General Appearance: WD/WN, no apparent distress, alert Cardiovascular: normal rate Respiratory/Chest: normal breath sounds, no respiratory distress Abdominal Exam: normal bowel sounds, non tender, soft Extremities: normal range of motion, non-tender Noreen Alvarez [employer]UMINUM SIDING MECH[employer]IC Apr 26, 2019 10:54
--- NOTE | 2019-04-26 12:00 | NUR ---
NURSE NOTES: RN unable to take VS d/t patient asleep. tried to wake her up. still sleeping. breathing even and unlabored. no facial grimacing during rounding. noted emptied juices. patient repositioned herself. will continue to monitor patient condition.
--- NOTE | 2019-04-26 14:00 | NUR ---
NURSE NOTES: patient refused to take medication [id number] po. explained risks and benefits. still refused. will continue to monitor patient's condition
--- NOTE | 2019-04-26 14:17 | General Progress Note ---
Assessment/Plan Problem List: (1) UTI (urinary tract infection) ICD Codes: N39.0 - Urinary tract infection, site not specified SNOMED: 83232767 (2) Abdominal pain ICD Codes: R10.9 - Unspecified abdominal pain SNOMED: 95474715 (3) Vomiting ICD Codes: R11.10 - Vomiting, unspecified SNOMED: 764807621 (4) Crohns disease ICD Codes: K50.90 - Crohn's disease, unspecified, without complications SNOMED: 06975492 Qualifiers: Qualified Codes: K50.919 - Crohn's disease, unspecified, with unspecified complications Status: stable, progressing Assessment/Plan: abx pain control cbc bmp am dc if clear by gi and id Subjective Constitutional: Reports: weakness Allergies: Coded Allergies: CODEINE (Unverified Allergy, Intermediate, 04/23/19) MORPHINE (Verified Allergy, Unknown, 04/29/16) PROCHLORPERAZINE (Verified Allergy, Unknown, 04/29/16) All Systems: reviewed and negative except above Subjective sleepy in bed Objective Last 24 Hour Vital Signs Date Time Temp Pulse Resp B/P (MAP) Pulse Ox O2 Delivery O2 Flow Rate FiO2 04/26/19 09:00 Room Air 04/25/19 21:00 Room Air Intake and Output 04/25/19 04/26/19 19:00 07:00 Intake Total 50 ml Balance 50 ml IV Total 50 ml Height (Feet): 5 Height (Inches): 10.00 Weight (Pounds): 284 General Appearance: lethargic EENT: normal ENT inspection Neck: normal alignment Cardiovascular: normal peripheral pulses, normal rate, regular rhythm Respiratory/Chest: chest wall non-tender, lungs clear, normal breath sounds Abdomen: normal bowel sounds, non tender, soft Extremities: normal inspection Edema: no edema noted Arm (L), no edema noted Arm (R), no edema noted Leg (L), no edema noted Leg (R), no edema noted Pedal (L), no edema noted Pedal (R), no edema noted Generalized Neurologic: motor weakness Skin: normal pigmentation, warm/dry Young Hicks DO Apr 26, 2019 14:17
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
--- NOTE | 2019-04-26 15:38 | NUR ---
NURSE NOTES: patient is cleared by GI. notified Dr. Hicks and received order if patient is cleared by ID, ok to dc with home medications. order noted and carried out.
[2019-04-26 16:00] VITALS: BP 147/95
--- NOTE | 2019-04-26 16:06 | NUR ---
NURSE NOTES: patient was cleared by both Gi and ID
[2019-04-26] MEDS: LORazepam Inj 2mg/ml 1ml IV PRN (18:40)
--- NOTE | 2019-04-26 19:22 | NUR ---
HAND-OFF: Report given to STEVE Ramírez.
--- NOTE | 2019-04-26 19:50 | NUR ---
NURSE NOTES: Received patient asleep in bed, easily arousable by name. No s/s of acute distress. IVF maintenance refused. Fall and safety precautions taken.
[2019-04-26 20:00] VITALS: BP 141/85
--- NOTE | 2019-04-26 20:01 | Infectious Diseases Prog Note ---
Assessment/Plan Assessment/Plan Assessment: Abd pain, v/d- ?gastroenteritis vs Chron's flare (however CT with no inflammation) -CT abd/p: No acute findings are appreciated. No significant interval change. Ventral abdominal hernias as described above. No associated inflammation or bowel obstruction. Small left adrenal mass unchanged from 2016 likely adenoma. Evidence of previous bowel surgery including partial rectosigmoid resection and small bowel resection. Status post appendectomy. Multiple cysts within the left kidney. Bilateral extrarenal pelvis configuration. Malrotation of the right kidney. Mild posterior basilar atelectasis. -Cdiff neg -stool cx: p Afebrile No leukocytosis -CXR: no acute findings UTI (+dysuria) -u/a wbc 10-15, nit neg, leuk +2; ucx 40-50k E.coli (R amp, Cipro/levo; otherwise negative) Chrons (dx 20 years ago) on mesalamine obesity anemia hemorrhoidal pain HTN TB 1988 Plan: -D/c empiric Cipro and Flagyl as patient refusing antibiotics -if agreeable to antibiotics and dysuria still persistent, can start PO Keflex 500mg PO bid -04/23 SP Ceftriaxone x1 -f/u cx -Monitor CBC/CMP, temperatures -f/u stool cx -GI f/u -supportive treatment -ok for discharge from ID stand point Thank you for this consultation. Will continue to follow along with you. Discussed with RN Subjective Allergies: Coded Allergies: CODEINE (Unverified Allergy, Intermediate, 04/23/19) MORPHINE (Verified Allergy, Unknown, 04/29/16) PROCHLORPERAZINE (Verified Allergy, Unknown, 04/29/16) Subjective afebrile no leukocytosis patient refusing antibiotics discharge planning Objective Vital Signs Last 24 Hour Vital Signs Date Time Temp Pulse Resp B/P (MAP) Pulse Ox O2 Delivery O2 Flow Rate FiO2 04/26/19 16:00 98.1 98 18 147/95 (112) 95 04/26/19 09:00 Room Air 04/25/19 21:00 Room Air Height (Feet): 5 Height (Inches): 10.00 Weight (Pounds): 284 Objective General Appearance: well appearing, no apparent distress, alert Head: normocephalic EENT: PERRL/EOMI, normal ENT inspection Neck: supple Respiratory: normal breath sounds, no respiratory distress Cardiovascular: normal rate Gastrointestinal: normal inspection, non tender, soft, normal bowel sounds, non -distended Musculoskeletal: normal inspection, back normal Neurologic: normal inspection, alert, oriented x3, responsive Psychiatric: normal inspection, judgement/insight normal, memory normal Skin: normal inspection, normal color, no rash, warm/dry, palpation normal, well hydrated Lymphatic: normal inspection, no adenopathy Microbiology Date/Time Source Procedure Growth Status 04/24/19 20:40 Stool Stool Culture Pending Resulted 04/24/19 20:40 Stool Clostridium difficile Toxin Assay - Final Resulted Current Medications Medications (Trade) Dose Ordered Sig/Kalani Route PRN Reason Start Time Stop Time Status Last Admin Dose Admin Acetaminophen (Tylenol) 650 mg Q4H PRN ORAL fever 04/23/19 22:00 05/23/19 21:59 04/24/19 01:42 Acetaminophen/ Hydrocodone Bitart ([place] 10/325) 1 tab Q4H PRN ORAL PAIN 1-6 04/24/19 13:45 05/01/19 12:29 Aripiprazole (Abilify) 5 mg DAILY ORAL 04/24/19 09:00 05/24/19 08:59 04/25/19 08:22 Bupropion HCl (Wellbutrin SR) 150 mg BID ORAL 04/24/19 09:00 05/24/19 08:59 04/26/19 18:40 Ciprofloxacin (Cipro 500mg tab) 500 mg EVERY 12 HOURS ORAL 04/24/19 16:41 05/01/19 16:40 04/25/19 08:22 Dextrose (Dextrose 50%) 25 ml Q30M PRN IV Hypoglycemia 04/23/19 22:00 05/23/19 21:59 Dextrose (Dextrose 50%) 50 ml Q30M PRN IV Hypoglycemia 04/23/19 22:00 05/23/19 21:59 Dextrose/Sodium Chloride 1,000 ml @ 75 mls/hr [id number] IV 04/23/19 21:53 05/23/19 21:52 04/26/19 16:24 Diphenhydramine HCl (Benadryl) 25 mg Q6H PRN ORAL Itching/Pruritis 04/23/19 22:00 05/23/19 21:59 Diphenhydramine HCl (Benadryl) 25 mg Q8H PRN IVP Itching 04/24/19 01:45 05/24/19 01:44 04/26/19 16:22 Heparin Sodium (Porcine) (Heparin 5000 units/ml) 5,000 units EVERY 12 HOURS SUBQ 04/24/19 09:00 05/24/19 08:59 04/25/19 21:54 Hydromorphone HCl 50 ml @ 224 mls/hr Q4H PRN IVPB For Pain 04/24/19 22:45 05/24/19 22:44 04/26/19 16:35 Lorazepam (Ativan 2mg/ml 1ml) 1 mg Q4H PRN IV agitation 04/23/19 22:00 04/30/19 21:59 04/26/19 18:40 Metronidazole (Flagyl) 500 mg Q8HR ORAL 04/24/19 16:41 05/01/19 16:40 04/24/19 16:54 Nitroglycerin (Ntg) 0.4 mg Q5M X 3 DOSES PRN SL Prn Chest Pain 04/23/19 22:00 05/23/19 21:59 Ondansetron HCl (Zofran) 4 mg Q6H PRN IVP Nausea & Vomiting 04/23/19 22:00 05/23/19 21:59 Pantoprazole (Protonix) 40 mg DAILY IV 04/24/19 09:00 05/24/19 08:59 04/25/19 08:22 Polyethylene Glycol (Miralax) 17 gm HSPRN PRN ORAL Constipation 04/23/19 22:00 05/23/19 21:59 Quetiapine Fumarate (SEROquel) 100 mg DAILY ORAL 04/24/19 09:00 05/24/19 08:59 04/25/19 08:22 Sulfasalazine (Azulfidine) 500 mg FOUR TIMES A DAY ORAL 04/24/19 09:00 05/24/19 08:59 04/26/19 18:40 Temazepam (Restoril) 15 mg HSPRN PRN ORAL Insomnia 04/23/19 22:00 04/30/19 21:59 Brianna Proctor M.D. Apr 26, 2019 20:01
[2019-04-27] VITALS: BP 139/98
[2019-04-27] MEDS: DiphenhydrAMINE 50mg/ml Inj IVP PRN ×2 (01:17→09:26)
[2019-04-27] MEDS: LORazepam Inj 2mg/ml 1ml IV PRN ×2 (01:18→07:45)
[2019-04-27] MEDS: HYDROmorphone 1mg/NS 50ml IVPB 50 ML IVPB PRN ×2 (02:02→09:16)
[2019-04-27 04:00] VITALS: BP 118/61
[2019-04-27] MEDS: D5 1/2NS 1,000 ML IV SCH (05:35)
--- NOTE | 2019-04-27 06:18 | NUR ---
NURSE NOTES: Patient refused AM blood draw stating "Im going home today".
--- NOTE | 2019-04-27 07:20 | NUR ---
HAND-OFF: Report given to STEVE Man.
--- NOTE | 2019-04-27 07:42 | NUR ---
NURSE NOTES: Patient alert x4, room air, no sign of distress and shortness of breath; no sing of chest pain; IV LAC 24G flushes well; patient requested for medication, PM nurse gonna give it. Call light within reach; side rails up x2, breaks engaged. will keep monitoring.
[2019-04-27] MEDS: BuPROPion SR 150mg tab ORAL SCH ×2 (09:00→09:15)
[2019-04-27] MEDS: SulfASALAZine 500MG tab ORAL SCH ×2 (09:00→09:15)
--- NOTE | 2019-04-27 09:09 | General Progress Note ---
Assessment/Plan Assessment/Plan: (1) Crohn's Disease (2) Abdominal pain (3) Lumbar DDD (4) Lumbar Spondylosis (5) Narcotic Dependency Patient to be continued on Dilaudid and [place]. D/w Dr. Lewis and he concurred. Subjective Date patient seen: Apr 27, 2019 Time patient seen: 08:00 - am Constitutional: Reports: no symptoms HEENT: Reports: no symptoms Cardiovascular: Reports: no symptoms Respiratory: Reports: no symptoms Gastrointestinal/Abdominal: Reports: no symptoms Genitourinary: Reports: no symptoms Neurologic/Psychiatric: Reports: no symptoms Endocrine: Reports: no symptoms Hematologic/Lymphatic: Reports: no symptoms Allergies: Coded Allergies: CODEINE (Unverified Allergy, Intermediate, 04/23/19) MORPHINE (Verified Allergy, Unknown, 04/29/16) PROCHLORPERAZINE (Verified Allergy, Unknown, 04/29/16) Subjective Patient is standing and walking the floors. Continues to c/o pain which has been at a moderate level tolerated on the Dilaudid 4 doses in the last 24hrs. No new complaints at this time. Objective Last 24 Hour Vital Signs Date Time Temp Pulse Resp B/P (MAP) Pulse Ox O2 Delivery O2 Flow Rate FiO2 04/27/19 04:00 98.1 80 18 118/61 (80) 97 04/27/19 02:32 97.9 04/27/19 00:00 97.9 83 18 139/98 (112) 77 04/26/19 22:46 Room Air 04/26/19 20:00 97.6 81 18 141/85 (103) 95 04/26/19 16:00 98.1 98 18 147/95 (112) 95 Height (Feet): 5 Height (Inches): 10.00 Weight (Pounds): 284 General Appearance: no apparent distress, alert EENT: PERRL/EOMI, normal ENT inspection Neck: non-tender, normal alignment Cardiovascular: normal rate Respiratory/Chest: lungs clear, normal breath sounds Abdomen: soft, no organomegaly Edema: no edema noted Arm (L), no edema noted Arm (R), no edema noted Leg (L), no edema noted Leg (R), no edema noted Pedal (L), no edema noted Pedal (R), no edema noted Generalized Neurologic: alert, responsive Skin: warm/dry Zedner,Storm N. PA Apr 27, 2019 09:09
[2019-04-27] MEDS: Pantoprazole Inj IV SCH (09:21)
[2019-04-27] MEDS: Heparin 5000 units/ml inj SUBQ SCH (09:22)
--- NOTE | 2019-04-27 09:50 | NUR ---
NURSE NOTES: Patient's IV out, charge nurse, Jamel aware. Will keep trying.
--- NOTE | 2019-04-27 10:11 | NUR ---
NURSE NOTES: Dilaudid premix 1mg/50 which hanged by PM nurse, Desiree wasn't finished in the bag. I took the remaining of 40mL in the bag to pharmacy, witnessed by pharmacist Leslie.
--- NOTE | 2019-04-27 10:12 | GI Progress Note ---
Assessment/Plan Problems: (1) C. difficile colitis ICD Codes: A04.72 - Enterocolitis due to Clostridium difficile, not specified as recurrent SNOMED: 988320422 (2) Substance abuse ICD Codes: F19.10 - Other psychoactive substance abuse, uncomplicated SNOMED: 59616350 (3) Vomiting ICD Codes: R11.10 - Vomiting, unspecified SNOMED: 949616678 (4) Abdominal pain ICD Codes: R10.9 - Unspecified abdominal pain SNOMED: 14502777 (5) Crohns disease ICD Codes: K50.90 - Crohn's disease, unspecified, without complications SNOMED: 59908747 Qualifiers: Qualified Codes: K50.919 - Crohn's disease, unspecified, with unspecified complications Status: stable Status Narrative Discussed with Dr. Weller. Assessment/Plan Abdominal pelvis CT reviewed mainly unremarkable. Evidence of previous bowel surgery including partial rectosigmoid resection and small bowel resection. Status post appendectomy. Abdominal ultrasound refused by patient. OB stool negative refused labs okay for DC per GI standpoint Follow-up ESR and CRP to rule out Crohn's flare, most likely is not. Advance diet as tolerated Pain management per recommendations Zofran as needed PPI IV and p.o. hydration plus electrolyte correction follow labs The patient was seen and examined at bedside and all new and available data was reviewed in the patients chart. I agree with the above findings, impression and plan. (Patient seen earlier today. Signature stamp does not reflect patient encounter time.). - Tylor Weller MD Subjective Subjective abdominal pain Objective Last 24 Hour Vital Signs Date Time Temp Pulse Resp B/P (MAP) Pulse Ox O2 Delivery O2 Flow Rate FiO2 04/27/19 04:00 98.1 80 18 118/61 (80) 97 04/27/19 02:32 97.9 04/27/19 00:00 97.9 83 18 139/98 (112) 77 04/26/19 22:46 Room Air 04/26/19 20:00 97.6 81 18 141/85 (103) 95 04/26/19 16:00 98.1 98 18 147/95 (112) 95 Height (Feet): 5 Height (Inches): 10.00 Weight (Pounds): 284 General Appearance: WD/WN, no apparent distress, alert Cardiovascular: normal rate Respiratory/Chest: normal breath sounds, no respiratory distress Abdominal Exam: normal bowel sounds, non tender, soft Extremities: normal range of motion, non-tender Noreen Alvarez NP Apr 27, 2019 10:12
--- NOTE | 2019-04-27 10:24 | NUR ---
NURSE NOTES: per pt , the home destination [place] [id number], [place]
--- NOTE | 2019-04-27 11:36 | General Progress Note ---
Assessment/Plan Problem List: (1) UTI (urinary tract infection) ICD Codes: N39.0 - Urinary tract infection, site not specified SNOMED: 87391857 (2) Abdominal pain ICD Codes: R10.9 - Unspecified abdominal pain SNOMED: 25578810 (3) Vomiting ICD Codes: R11.10 - Vomiting, unspecified SNOMED: 958640505 (4) Crohns disease ICD Codes: K50.90 - Crohn's disease, unspecified, without complications SNOMED: 39416362 Qualifiers: Qualified Codes: K50.919 - Crohn's disease, unspecified, with unspecified complications Status: stable, progressing Assessment/Plan: abx pain control cbc bmp am dc if clear by gi and id Subjective Constitutional: Reports: weakness Allergies: Coded Allergies: CODEINE (Unverified Allergy, Intermediate, 04/23/19) MORPHINE (Verified Allergy, Unknown, 04/29/16) PROCHLORPERAZINE (Verified Allergy, Unknown, 04/29/16) All Systems: reviewed and negative except above Subjective sleepy in bed Objective Last 24 Hour Vital Signs Date Time Temp Pulse Resp B/P (MAP) Pulse Ox O2 Delivery O2 Flow Rate FiO2 04/27/19 09:46 98.1 04/27/19 09:00 Room Air 04/27/19 04:00 98.1 80 18 118/61 (80) 97 04/27/19 00:00 97.9 83 18 139/98 (112) 77 04/26/19 22:46 Room Air 04/26/19 20:00 97.6 81 18 141/85 (103) 95 04/26/19 16:00 98.1 98 18 147/95 (112) 95 Height (Feet): 5 Height (Inches): 10.00 Weight (Pounds): 284 General Appearance: lethargic EENT: normal ENT inspection Neck: non-tender Cardiovascular: normal peripheral pulses, normal rate, regular rhythm Respiratory/Chest: chest wall non-tender, lungs clear, normal breath sounds Abdomen: normal bowel sounds, non tender, soft Extremities: normal inspection Edema: no edema noted Arm (L), no edema noted Arm (R), no edema noted Leg (L), no edema noted Leg (R), no edema noted Pedal (L), no edema noted Pedal (R), no edema noted Generalized Neurologic: motor weakness Skin: normal pigmentation, warm/dry Young Hicks DO Apr 27, 2019 11:36
--- NOTE | 2019-04-27 12:42 | NUR ---
NURSE NOTES: Patient left the floor around 1230. IV access and name tag removed upon discharge. Belonging list signed by primary nurse and patient that patient has all the belongings patient admit with; printed material given regarding patient's admission with us. Patient is stable upon discharge. We provided taxi voucher to the destination address patient provided with. Patient picked up by taxi. Patient left the floor ambulating and scored to the taxi waiting for. Patient was stable upon discharge.
--- NOTE | 2019-04-27 15:40 | NUR ---
*-* INSURANCE *-* ALL CLINICALS AND REVIEWS HAVE BEEN FAXED TO: [facility] [employer] INSPECTOR: PAULINE #[phone] [employer] #[phone] FAX#[phone] - REVIEWS/CLINICALS
--- NOTE | 2019-04-28 16:56 | Discharge Summary ---
Discharge Summary Discharge Summary _ DATE OF ADMISSION: 04/23/2019 DATE OF DISCHARGE: 04/27/2019 DISCHARGED BY: Dr. Hicks REASON FOR ADMISSION: 49 years old transgender male to female patient, with past medical history of hypertension, Crohn's disease, TB in 1988 , presented with generalized abdominal pain. Patient reported achy pain with bloody bowel movement with associated nausea and vomiting. Patient was not able to tolerate oral diet and felt dehydrated. No fever, no chills. No chest pain. Patient requested pain medication and steroids, since she felt that she had a Crohn's disease flare. Upon evaluation patient was tachycardic, otherwise stable vital signs. Laboratory work-up revealed no leukocytosis, hemoglobin 11, hematocrit 33.6. Stable electrolytes. BUN 21, creatinine 1.1. Troponin negative Urinalysis revealed pyuria, few bacteria + 2 ketones +2 protein,. Chest x-ray demonstrated no acute cardiopulmonary pathology. CT of the abdomen and pelvis revealed no acute findings. Ventral abdominal hernia. No associated inflammation or bowel obstruction. Small left adrenal mass unchanged from 2016, likely adenoma. Evidence of previous bowel surgery, including partial rectosigmoid resection and small bowel resection. Status post appendectomy. Mild posterior basilar atelectasis. Multiply cyst within the left kidney. Patient started on the IV fluids. Patient was given steroid and analgesic. Patient subsequently admitted to medical surgical floor for further management. CONSULTANTS: pulmonary Dr. Kelley ID specialist Dr. Proctor GI specialist Dr. Weller pain specialist Dr. Lewis [facility] COURSE: Patient admitted to medical surgical floor. Patient initially started on the IV fluids and empiric antibiotics. GI specialist followed. Stool for occult blood was negative. Patient declined abdominal ultrasound and further labs. Diet was started as clear liquids and was advanced as tolerated. Pain management was provided as per pain specialist recommendation. Patient started on GI prophylaxis. Antiemetic provided as needed. Oral hydration was encouraged. Electrolytes were closely monitored and corrected as needed. Stool culture revealed no evidence of Salmonella, Shigella, or Campylobacter. Stool for C. difficile was negative. Urine culture revealed E. coli. Patient complained of dysuria. Patient was on empiric Cipro and Flagyl , which were discontinued , since patient declined antibiotic. Per ID specialist, if patient will be agreeable to antibiotic and dysuria remains persistent , can restart oral Keflex. Per ID specialist, abdominal pain was likely due to possible gastroenteritis versus Crohn's disease. No evidence of inflammation of the CT scan. Per GI specialist, abdominal pain was likely due to possible gastroenteritis versus Crohn's disease. However, CT scan revealed no evidence of inflammation. Patient diagnosed with Crohn's disease 20 years ago and taking mesalamine. Patient remained afebrile, no leukocytosis. Patient was able to tolerate diet. Stool for occult blood was negative. Abdominal pain resolved. Patient was stable for discharge home. FINAL DIAGNOSES: Abdominal pain Crohn's disease UTI , dysuria Lumbar DDD Lumbar spondylosis Narcotic dependency DISCHARGE MEDICATIONS: See Medication Reconciliation list. DISCHARGE INSTRUCTIONS: Patient was discharged home . Follow up with primary care provider in one week. I have been assigned to dictate discharge summary for this account. I was not involved in the patient's management. Sabina Pickard NP Apr 28, 2019 16:56
== END 2019-04-27 12:25 | disposition home or self-care (01) | DRG 245 ==
LOC: EDBD 12:22 → EMR 14:16 → 4E 16:46 → EDBEDREQ 17:59 → 4E 18:56
DX: K50.90 Crohn's disease, unspecified, without complications (principal); N39.0 Urinary tract infection, site not specified; E66.9 Obesity, unspecified; Z68.41 Body mass index [BMI] 40.0-44.9, adult; F11.20 Opioid dependence, uncomplicated; R10.9 Unspecified abdominal pain; Z88.6 Allergy status to analgesic agent; Z88.8 Allergy status to other drugs, medicaments and biological substances; M51.36 Other intervertebral disc degeneration, lumbar region; M47.896 Other spondylosis, lumbar region; I10 Essential (primary) hypertension; N28.1 Cyst of kidney, acquired
CPT/HCPCS: 36415; 71045; 74177; 80053; 81003; 82270; 82550; 82553; 83690; 84484; 85025; 85610; 85730; 87045; 87086; 87181; 87324; 93005; 96361; 96365; 96375; 96376; 99285; J2405

== ENCOUNTER 2019-06-18 12:43 | Inpatient (IN) | payer MEDICAID ==
[~2019-06-18] VITALS: Ht 177.8 cm; Wt 128.8 kg
--- NOTE | 2019-06-18 13:50 | NUR ---
ED Nurse Note: Patient walked into ED from the street, reports he is hearing voices that are telling him to cut his wrists. patient reports he took 8 wellbutrin SR 150mg at 10AM today to help him. patient is alert awake x4 ambulatory steady gait, breathing unlabored and even.
[2019-06-18] MEDS ORDERED: ZyPREXA Zydis 5mg tab ORAL ONE (14:15)
[2019-06-18 15:58] LABS: BASOPHILS % (AUTO) 1.4 % (0.0-2.0); EOSINOPHILS % (AUTO) 0.3 % (0.0-3.0); HEMATOCRIT 42.5 % (42.0-52.0); HEMOGLOBIN 14.8 G/DL (14.2-18.0); LYMPHOCYTES % (AUTO) 20.4 % (20.0-45.0); MEAN CORPUSCULAR VOLUME 98 FL (80-99); NEUTROPHILS % (AUTO) 68.9 % (45.0-75.0); PLATELET COUNT 322 K/UL (150-450); RED BLOOD COUNT 4.32 M/UL (4.70-6.10); RED CELL DISTRIBUTION WIDTH 11.9 % (11.6-14.8)
[2019-06-18 16:08] VITALS: BP 117/85
[2019-06-18 16:23] LABS: ANION GAP 10 mmol/L (5-15); BLOOD UREA NITROGEN 26 mg/dL (7-18); CALCIUM 10.1 MG/DL (8.5-10.1); CARBON DIOXIDE 26 MMOL/L (21-32); CHLORIDE 106 MMOL/L (98-107); CREATININE 1.9 MG/DL (0.55-1.30); POTASSIUM 5.4 MMOL/L (3.5-5.1); SODIUM 141 MMOL/L (136-145)
[2019-06-18 16:27] LABS: ALANINE AMINOTRANSFERASE 27 U/L (12-78); ALBUMIN 4.1 G/DL (3.4-5.0); ALBUMIN/GLOBULIN RATIO 0.8 (1.0-2.7); ALKALINE PHOSPHATASE 86 U/L (46-116); ASPARTATE AMINO TRANSFERASE 28 U/L (15-37); BILIRUBIN,TOTAL 0.4 MG/DL (0.2-1.0)
--- NOTE | 2019-06-18 17:22 | NUR ---
ED Nurse Note: IVF infusing as ordered, kindly reminded patient that MD ordered urine sample from her.
--- NOTE | 2019-06-18 18:25 | NUR ---
ED Nurse Note: patient provided with sandwiches, juice and water. tray provided for the patient.
--- NOTE | 2019-06-18 18:30 | NUR ---
ED Nurse Note: DR Elma olsen for not getting urine sample from the patient at this time.
[2019-06-18 19:15] VITALS: BP 122/79
--- NOTE | 2019-06-18 19:32 | NUR ---
HAND-OFF: Report given to GIACOMO WILSON.
--- NOTE | 2019-06-18 21:13 | Emergency Room Report ---
History of Present Illness General Chief Complaint: Behavioral Complaint Source: Patient Present Illness HPI 49-year-old male identifiying as female presents ED for evaluation. Patient states that he has been hearing voices and he took several pills of Wellbutrin to hurt himself today. States that he does take psychiatric medications but states they are not helping. Denies alcohol or drug use. No other aggravating relieving factors. Denies any other associated symptoms Allergies: Coded Allergies: CODEINE (Unverified Allergy, Intermediate, 04/23/19) HALOPERIDOL (Verified Allergy, Unknown, 06/18/19) MORPHINE (Verified Allergy, Unknown, 04/29/16) PROCHLORPERAZINE (Verified Allergy, Unknown, 04/29/16) Patient History Past Medical History: HTN, other - corhns Past Surgical History: none Pertinent Family History: none Social History: Denies: smoking, alcohol use, drug use Immunizations: UTD Reviewed Nursing Documentation: PMH: Agreed; PSxH: Agreed Nursing Documentation-PMH Past Medical History: No History, Except For Hx Cardiac Problems: No Hx Hypertension: Yes Hx Pacemaker: No - crohns Hx Cancer: No Hx Gastrointestinal Problems: Yes Hx Neurological Problems: No Review of Systems All Other Systems: negative except mentioned in HPI Physical Exam Vital Signs Date Time Temp Pulse Resp B/P (MAP) Pulse Ox O2 Delivery O2 Flow Rate FiO2 06/18/19 13:41 98.4 110 20 129/79 (96) 96 Room Air Sp02 EP Interpretation: reviewed, normal General Appearance: no apparent distress, alert, GCS 15, non-toxic Head: normocephalic, atraumatic Eyes: bilateral eye normal inspection, bilateral eye PERRL ENT: hearing grossly normal, normal pharynx, no angioedema, normal voice Neck: full range of motion, supple/symm/no masses Respiratory: chest non-tender, lungs clear, normal breath sounds, speaking full sentences Cardiovascular #1: regular rate, rhythm, no edema Cardiovascular #2: 2+ carotid (R), 2+ carotid (L), 2+ radial (R), 2+ radial (L) , 2+ dorsalis pedis (R), 2+ dorsalis pedis (L) Gastrointestinal: normal bowel sounds, non tender, soft, non-distended, no guarding, no rebound Rectal: deferred Genitourinary: normal inspection, no CVA tenderness Musculoskeletal: back normal, gait/station normal, normal range of motion, non- tender Neurologic: alert, oriented x3, responsive, motor strength/tone normal, sensory intact, speech normal Psychiatric: depressed affect, anxious Reflexes: 3+ bicep (R), 3+ bicep (L), 3+ tricep (R), 3+ tricep (L), 3+ knee (R) , 3+ knee (L) Lymphatic: no adenopathy Medical Decision Making Diagnostic Impression: Primary Impression: Renal insufficiency Additional Impression: Hearing voices ER Course Hospital Course 49-year-old male identifying as female presents ED hearing voices and took several pills of Wellbutrin Differential diagnoses include: overdose, alcohol toxicity, psychosis Clinical course She placed on stretcher. On cardiac technologist. After initial history and physical ordered labs, IV fluids, zyprexa Labs reviewed- BUN/Cr elevated, K 5.4, hemoglobin/hematocrit stable, Patient on one-to-one evaluation. remains AAOX3. Cannot be medically cleared due to renal insufficiency. Will require admission. case discussed with Dr. Hicks and he agreed to accept the patient to his service for further care and support i. I feel this is a highly complex case requiring extensive working including EKG/Rhythm strip, Xray/CT/US, Blood/urine lab work, repeat exams while in ED, and administration of strong opiates/narcotics for pain control, admission to hospital or close patient follow up. Diagnosis - renal insufficiency, hearing voices Admitted to floor in serious condition Labs Test 06/18/19 15:42 White Blood Count 10.0 K/UL (4.8-10.8) Red Blood Count 4.32 M/UL (4.70-6.10) Hemoglobin 14.8 G/DL (14.2-18.0) Hematocrit 42.5 % (42.0-52.0) Mean Corpuscular Volume 98 FL (80-99) Mean Corpuscular Hemoglobin 34.3 PG (27.0-31.0) Mean Corpuscular Hemoglobin Concent 34.9 G/DL (32.0-36.0) Red Cell Distribution Width 11.9 % (11.6-14.8) Platelet Count 322 K/UL (150-450) Mean Platelet Volume 6.6 FL (6.5-10.1) Neutrophils (%) (Auto) 68.9 % (45.0-75.0) Lymphocytes (%) (Auto) 20.4 % (20.0-45.0) Monocytes (%) (Auto) 9.0 % (1.0-10.0) Eosinophils (%) (Auto) 0.3 % (0.0-3.0) Basophils (%) (Auto) 1.4 % (0.0-2.0) Sodium Level 141 MMOL/L (136-145) Potassium Level 5.4 MMOL/L (3.5-5.1) Chloride Level 106 MMOL/L (98-107) Carbon Dioxide Level 26 MMOL/L (21-32) Anion Gap 10 mmol/L (5-15) Blood Urea Nitrogen 26 mg/dL (7-18) Creatinine 1.9 MG/DL (0.55-1.30) Estimat Glomerular Filtration Rate 45.7 mL/min (>60) Glucose Level 102 MG/DL (74-106) Calcium Level 10.1 MG/DL (8.5-10.1) Total Bilirubin 0.4 MG/DL (0.2-1.0) Aspartate Amino Transf (AST/SGOT) 28 U/L (15-37) Alanine Aminotransferase (ALT/SGPT) 27 U/L (12-78) Alkaline Phosphatase 86 U/L (46-116) Total Protein 9.5 G/DL (6.4-8.2) Albumin 4.1 G/DL (3.4-5.0) Globulin 5.4 g/dL Albumin/Globulin Ratio 0.8 (1.0-2.7) Salicylates Level 3.1 ug/mL (2.8-20) Acetaminophen Level < 2 MCG/ML (10-30) Serum Alcohol < 3 mg/dL Last Vital Signs Date Time Temp Pulse Resp B/P (MAP) Pulse Ox O2 Delivery O2 Flow Rate FiO2 06/18/19 19:15 98.0 88 15 122/79 100 Room Air Status: improved Disposition: ADMITTED INPATIENT Condition: Serious Referrals: NOT CHOSEN IPA/,REFERRING (PCP) Tk Wills MD Jun 18, 2019 21:13
--- NOTE | 2019-06-18 21:38 | NUR ---
ED Nurse Note: Report given to Laith WILSON of Med Surg unit.
--- NOTE | 2019-06-18 21:58 | NUR ---
ED Nurse Note: Pt transferred to med surg unit via gurney with all belongings sent.
--- NOTE | 2019-06-18 22:32 | NUR ---
NURSE NOTES: Received report from REFUGE WORKERSTEVE Chapin. Patient was transported via gurney to med surg 3E with belongings in bag. Patient appears disheveled and unkept. She states that a friend drove her to the hospital from home. Patient is aggravated and c/o of muscle pain "from her neck to her lower back" that "feels like twisting and pulling tightness". Patient c/o itching and epigastric discomfort, and is demanding pain medication. Attempted to contact Dr. Kelley for request for admission orders. Will continue to monitor.
[2019-06-18 22:44] VITALS: BP 154/91
--- NOTE | 2019-06-18 22:45 | NUR ---
NURSE NOTES: Patient requested diphenhydramine medication per eMAR. After medication was pulled patient refused administration at this time. Wasted with STEVE Priest. Charge STEVE Wiggins aware.
[2019-06-18] MEDS ORDERED: Pantoprazole Inj IVP PRN (23:30)
[2019-06-19] VITALS: BP 135/88
[2019-06-19] MEDS ORDERED: Pantoprazole Inj IVP SCH ×2 (00:15→09:00)
--- NOTE | 2019-06-19 00:26 | NUR ---
NURSE NOTES: Initially patient stated that they "don't need a sitter" because she is not suicidal. Patient is complaining of pain 10/10 and states "I have a fistula and stated "I'm bleeding out of my ass! I'm going to need something for my pain immediately". RN cannot confirm visually whether blood is present in the stool or not. Instructed patient that if they go to the bathroom to notify RN and will need to view the stool and take a sample. RN attempted to reach out to Dr. Kelley for pain med orders a second time with no response. Patient refused all other medication at this time. Patient is visibly upset pacing back and forth with voice getting louder. She approached the nurses' station several times and raised her voice to the charge nurse. She asked to speak to the nurse retail department supervisor and began yelling at the nurse retail department supervisor stating "i'm very upset right now. I've been here since quarter to 12 noon and I haven't received anything for my pain".
[2019-06-19] MEDS: DiphenhydrAMINE 50mg/ml Inj IVP PRN ×3 (03:36→22:22)
[2019-06-19 04:00] VITALS: BP 136/97
--- NOTE | 2019-06-19 07:25 | NUR ---
HAND-OFF: Report given to STEVE Puente. Patient is in stable condition.
[2019-06-19 08:00] VITALS: BP 126/89
[2019-06-19] MEDS: Montelukast 10mg tablet ORAL SCH (08:16)
[2019-06-19] MEDS: BuPROPion SR 150mg tab ORAL SCH ×2 (08:17→17:42)
[2019-06-19] MEDS ORDERED: Lisinopril 10mg tab ORAL SCH (09:00)
--- NOTE | 2019-06-19 11:22 | NUR ---
*-*INSURANCE *-* ALL AVAILABLE CLINICALS HAVE BEEN FAXED TO: [facility]ANDIN[facility] JARA/BELL HILTON: SABINA REF# [id number] P: [phone] F: [phone]
--- NOTE | 2019-06-19 11:29 | GI Initial Consult Note ---
History of Present Illness General Date patient seen: Jun 19, 2019 Time patient seen: 11:25 Reason for Hospitalization: Behavioral Complaint Referring physician: VIRGILIO MEZA Reason for Consultation: DIARRHEA Present Illness HPI 49-year-old male identifiying as female presents ED for evaluation. Patient states that he has been hearing voices and he took several pills of Wellbutrin to hurt himself today. States that he does take psychiatric medications but states they are not helping. Denies alcohol or drug use. No other aggravating relieving factors. Denies any other associated symptoms GI consulted for reported abdominal pain and diarrhea. Patient seen, awake alert oriented x4 no apparent distress with no active signs symptoms of nausea vomiting. Patient is ambulatory at this time. According to the patient, he has a history of Crohn's disease which was diagnosed over 20 years ago and believes he is having a current active flare. The patient has complaint of diarrhea. His last colonoscopy was approximately 1 year ago. Labs reviewed; no leukocytosis. Hemoglobin 14.8, hematocrit 42.5, potassium 5.4, creatinine 1.9, no transaminitis, occult blood stool is negative. Patient has a history of obesity, anemia, hemorrhoidal pain and drug-seeking behavior. Home Meds Active Scripts Hydrocodone Bit/Acetaminophen 10-325* (NORCO 10-325*) 1 Each Tablet, 1 TAB ORAL Q6H PRN, #10 TAB 0 Refills PRN PAIN Prov:Fidel Bullock MD 03/16/19 Bupropion Hcl* (BUPROPION HCL SR*) 150 Mg Tablet.er, 150 MG ORAL BID for 30 Days , TAB Prov:Fidel Bullock MD 03/16/19 Quetiapine Fumarate* (SEROQUEL*) 100 Mg Tablet, 100 MG ORAL Q12HR for 30 Days, TAB Prov:Fidel Bullock MD 03/16/19 Prednisone* (PREDNISONE*) 20 Mg Tablet, 40 MG ORAL DAILY, #10 TAB Prov:Abe Mayer MD 04/29/16 Aripiprazole* (ABILIFY*) 5 Mg Tablet, 5 MG ORAL DAILY, #30 TAB 0 Refills Prov:Abe Mayer MD 04/29/16 Reported Medications Montelukast Sodium* (MONTELUKAST SODIUM*) 10 Mg Tablet, 10 MG ORAL DAILY, TAB 04/29/16 Pantoprazole* (PANTOPRAZOLE*) 40 Mg Tablet.dr, 40 MG ORAL DAILY, TAB 04/29/16 Lisinopril* (LISINOPRIL*) 10 Mg Tablet, 10 MG ORAL DAILY, TAB 04/29/16 Sulfasalazine* (AZULFIDINE*) 500 Mg Tablet, 500 MG ORAL FOUR TIMES A DAY, TAB 04/29/16 Folic Acid* (FOLIC ACID*) 1 Mg Tablet, 1 MG ORAL DAILY, TAB 04/29/16 Mesalamine (ASACOL HD) 800 Mg Tablet.dr, 800 MG ORAL THREE TIMES A DAY, TAB Do not break outer coating 04/29/16 Discontinued Reported Medications Quetiapine Fumarate* (QUETIAPINE FUMARATE*) 50 Mg Tablet, 100 MG ORAL DAILY, TAB 04/29/16 Prednisone (Prednisone) 20 Mg Tablet, 20 MG PO, TAB 04/29/16 Discontinued Scripts Metronidazole* (FLAGYL*) 500 Mg Tablet, 500 MG ORAL EVERY 8 HOURS, #30 TAB Prov:Abe Mayer MD 04/29/16 Haloperidol (Haloperidol) 5 Mg Tablet, 5 MG ORAL DAILY, #30 TAB 0 Refills Prov:Abe Mayer MD 04/29/16 Med list reviewed/reconciled: Yes Allergies: Coded Allergies: CODEINE (Unverified Allergy, Intermediate, 04/23/19) HALOPERIDOL (Verified Allergy, Unknown, 06/18/19) MORPHINE (Verified Allergy, Unknown, 04/29/16) PROCHLORPERAZINE (Verified Allergy, Unknown, 04/29/16) Patient History History Provided By: Patient, Medical Record PMH Narrative Past Medical History: HTN, other - corhns Past Surgical History: none Pertinent Family History: none Social History: Denies: smoking, alcohol use, drug use Immunizations: UTD Reviewed Nursing Documentation: PMH: Agreed; PSxH: Agreed Nursing Documentation-PMH Past Medical History: No History, Except For Hx Cardiac Problems: No Hx Hypertension: Yes Hx Pacemaker: No - crohns Hx Cancer: No Hx Gastrointestinal Problems: Yes Hx Neurological Problems: No Review of Systems All Other Systems: negative except mentioned in HPI Physical Exam Vital Signs Date Time Temp Pulse Resp B/P (MAP) Pulse Ox O2 Delivery O2 Flow Rate FiO2 06/18/19 13:41 98.4 110 20 129/79 (96) 96 Room Air Sp02 EP Interpretation: reviewed, normal Labs Laboratory Tests Test 06/18/19 15:42 06/19/19 03:00 White Blood Count 10.0 K/UL (4.8-10.8) Red Blood Count 4.32 M/UL (4.70-6.10) L Hemoglobin 14.8 G/DL (14.2-18.0) Hematocrit 42.5 % (42.0-52.0) Mean Corpuscular Volume 98 FL (80-99) Mean Corpuscular Hemoglobin 34.3 PG (27.0-31.0) H Mean Corpuscular Hemoglobin Concent 34.9 G/DL (32.0-36.0) Red Cell Distribution Width 11.9 % (11.6-14.8) Platelet Count 322 K/UL (150-450) Mean Platelet Volume 6.6 FL (6.5-10.1) Neutrophils (%) (Auto) 68.9 % (45.0-75.0) Lymphocytes (%) (Auto) 20.4 % (20.0-45.0) Monocytes (%) (Auto) 9.0 % (1.0-10.0) Eosinophils (%) (Auto) 0.3 % (0.0-3.0) Basophils (%) (Auto) 1.4 % (0.0-2.0) Sodium Level 141 MMOL/L (136-145) Potassium Level 5.4 MMOL/L (3.5-5.1) H Chloride Level 106 MMOL/L (98-107) Carbon Dioxide Level 26 MMOL/L (21-32) Anion Gap 10 mmol/L (5-15) Blood Urea Nitrogen 26 mg/dL (7-18) H Creatinine 1.9 MG/DL (0.55-1.30) H Estimat Glomerular Filtration Rate 45.7 mL/min (>60) Glucose Level 102 MG/DL (74-106) Calcium Level 10.1 MG/DL (8.5-10.1) Total Bilirubin 0.4 MG/DL (0.2-1.0) Aspartate Amino Transf (AST/SGOT) 28 U/L (15-37) Alanine Aminotransferase (ALT/SGPT) 27 U/L (12-78) Alkaline Phosphatase 86 U/L (46-116) Total Protein 9.5 G/DL (6.4-8.2) H Albumin 4.1 G/DL (3.4-5.0) Globulin 5.4 g/dL Albumin/Globulin Ratio 0.8 (1.0-2.7) L Salicylates Level 3.1 ug/mL (2.8-20) Acetaminophen Level < 2 MCG/ML (10-30) L Serum Alcohol < 3 mg/dL Stool Occult Blood Negative (NEGATIVE) General Appearance: well appearing, no apparent distress, alert Head: normocephalic EENT: PERRL/EOMI, normal ENT inspection Neck: supple Respiratory: normal breath sounds, no respiratory distress Cardiovascular: normal rate Gastrointestinal: normal inspection, non tender, soft, normal bowel sounds, non -distended Rectal: deferred Genitourinary: deferred Musculoskeletal: normal inspection, back normal Neurologic: normal inspection, alert, oriented x3, responsive Psychiatric: normal inspection, judgement/insight normal, memory normal Skin: normal inspection, normal color, no rash, warm/dry, palpation normal, well hydrated Lymphatic: normal inspection, no adenopathy Current Medications Current Medications Medications (Trade) Dose Ordered Sig/Kalani Route PRN Reason Start Time Stop Time Status Last Admin Dose Admin Aripiprazole (Abilify) 5 mg DAILY ORAL 06/19/19 09:00 07/19/19 08:59 06/19/19 08:17 Bupropion HCl (Wellbutrin SR) 150 mg BID ORAL 06/19/19 09:00 07/19/19 08:59 06/19/19 08:17 Diphenhydramine HCl (Benadryl) 25 mg Q6H PRN IVP Itching 06/18/19 23:00 07/18/19 22:59 06/19/19 09:33 Hydromorphone HCl (Dilaudid) 2 mg Q3H PRN IVP For Pain 06/19/19 01:45 06/26/19 01:44 06/19/19 08:16 Lisinopril (Zestril) 10 mg DAILY ORAL 06/19/19 09:00 07/19/19 08:59 06/19/19 08:17 Montelukast Sodium (Singulair) 10 mg DAILY ORAL 06/19/19 09:00 07/19/19 08:59 06/19/19 08:16 Ondansetron HCl (Zofran) 4 mg Q6H PRN IVP Nausea & Vomiting 06/19/19 01:45 07/19/19 01:44 Pantoprazole (Protonix) 40 mg DAILY IVP 06/19/19 09:00 07/19/19 08:59 06/19/19 08:18 Quetiapine Fumarate (SEROquel) 100 mg DAILY ORAL 06/19/19 09:00 07/19/19 08:59 06/19/19 08:17 GI: Plan Problems: (1) Crohns disease (2) Substance abuse (3) C. difficile colitis Plan No plans for any GI procedures at this time, nothing to suggest Crohn's flare. Symptomatic treatment Advance diet as tolerated Check for C. difficile patient has persistent diarrhea Follow-up with nephrology recommendations collect given elevated creatinine levels Electrolyte correction PPI Zofran as needed will follow Discussed with Dr. Weller. Thank you for this patient referral, we will follow. The patient was seen and examined at bedside and all new and available data was reviewed in the patients chart. I agree with the above findings, impression and plan. (Patient seen earlier today. Signature stamp does not reflect patient encounter time.). - MD Kim Hurley,[facility] [employer] OPERATOR Jun 19, 2019 11:29
--- NOTE | 2019-06-19 11:46 | NUR ---
P.T NOTE: P.T EVALUATION COMPLETED. PATIENT IS ALERT, O X 4, PLEASANT AND COOPERATIVE. PATIENT REPORTS C/O PAIN IN ABDOMEN 5/10 AGGRAVATED BY MOVEMENT. PATIENT DESPITE C/O PAIN DEMONSTRATE FULL INDEPENDENCE AND ALL AREAS OF ADL/FUNCTIONAL MOBILITIES AND GAIT/LOCOMOTION. CURRENT FUNCTIONAL STATUS DOES NOT WARRANT SKILLED P.T. SERVICES AT THIS TIME. ENCOURAGED PATIENT OOB ACTIVITIES VS BEDREST UNLESS OTHERWISE ORDERED BY . [facility]. THANK YOU FOR THIS REFERRAL.
[2019-06-19 12:00] VITALS: BP 117/74
--- NOTE | 2019-06-19 13:42 | Consultation ---
Consult Note Consult Note I was asked to evaluate for elevated Cr This is a 49-year-old female, transgender with a history of schizophrenia, depression, Crohn disease who presented to ER for hearing voices- Coded Allergies: CODEINE (Unverified Allergy, Intermediate, 04/23/19) HALOPERIDOL (Verified Allergy, Unknown, 06/18/19) MORPHINE (Verified Allergy, Unknown, 04/29/16) PROCHLORPERAZINE (Verified Allergy, Unknown, 04/29/16) Past Medical History: HTN, other - corhns Hx Hypertension: Yes Hx Pacemaker: No - crohns Hx Gastrointestinal Problems: Yes .interviewed data reviewed Assessment/Plan Renal failure-? Acute- ? Dehydration Crohn's exacerbation. Depression. Schizophrenia. Urine studies Urien tox screen Hydrate Kidney YUKO BP check Benjamin Coronado MD Jun 19, 2019 13:42
--- NOTE | 2019-06-19 13:49 | Consultation ---
History of Present Illness General Date patient seen: Jun 19, 2019 Chief Complaint: Behavioral Complaint Referring physician: VIRGILIO MEZA Reason for Consultation: DIARRHEA Present Illness HPI 49-year-old transgender male to female with hx of presented to ED for evaluation of hearing voices and he took several pills of Wellbutrin to hurt himself today. States that he does take psychiatric medications but states they are not helping. c/o of lower abdominal pain and diarrhea for over two weeks Allergies: Coded Allergies: CODEINE (Unverified Allergy, Intermediate, 04/23/19) HALOPERIDOL (Verified Allergy, Unknown, 06/18/19) MORPHINE (Verified Allergy, Unknown, 04/29/16) PROCHLORPERAZINE (Verified Allergy, Unknown, 04/29/16) Medication History Scheduled Aripiprazole* (Abilify*), 5 MG ORAL DAILY Bupropion Hcl* (Bupropion Hcl Sr*), 150 MG ORAL BID Folic Acid* (Folic Acid*), 1 MG ORAL DAILY, (Reported) Lisinopril* (Lisinopril*), 10 MG ORAL DAILY, (Reported) Mesalamine (Asacol Hd), 800 MG ORAL THREE TIMES A DAY, (Reported) Montelukast Sodium* (Montelukast Sodium*), 10 MG ORAL DAILY, (Reported) Pantoprazole* (Pantoprazole*), 40 MG ORAL DAILY, (Reported) Prednisone* (Prednisone*), 40 MG ORAL DAILY Quetiapine Fumarate* (Seroquel*), 100 MG ORAL Q12HR Sulfasalazine* (Azulfidine*), 500 MG ORAL FOUR TIMES A DAY, (Reported) Scheduled PRN Hydrocodone Bit/Acetaminophen 10-325* ([place] 10-325*), 1 TAB ORAL Q6H PRN Discontinued Medications Haloperidol (Haloperidol), 5 MG ORAL DAILY Discontinued Reason: Therapy completed Metronidazole* (Flagyl*), 500 MG ORAL EVERY 8 HOURS Discontinued Reason: Therapy completed Prednisone (Prednisone), 20 MG PO, (Reported) Discontinued Reason: Therapy completed Quetiapine Fumarate* (Quetiapine Fumarate*), 100 MG ORAL DAILY, (Reported) Discontinued Reason: Therapy completed Patient History Healthcare decision maker Resuscitation status Full Code Advanced Directive on File Past Medical/Surgical History Past Medical/Surgical History: (1) Crohns disease (2) Substance abuse Review of Systems All Other Systems: negative except mentioned in HPI Physical Exam General Appearance: WD/WN Lines, tubes and drains: peripheral HEENT: normocephalic, atraumatic Neck: non-tender, normal alignment Respiratory/Chest: chest wall non-tender, lungs clear, normal breath sounds Abdomen: normal bowel sounds Genitourinary/Rectal: normal genital exam Extremities: normal range of motion Last 24 Hour Vital Signs Date Time Temp Pulse Resp B/P (MAP) Pulse Ox O2 Delivery O2 Flow Rate FiO2 06/19/19 12:00 97.8 77 18 117/74 (88) 97 06/19/19 09:00 Room Air 06/19/19 08:17 126/89 06/19/19 08:00 97.8 88 18 126/89 (101) 97 06/19/19 04:00 97.9 81 18 136/97 (110) 100 06/19/19 02:43 Room Air 06/19/19 00:00 98.0 107 18 135/88 (104) 97 06/18/19 22:44 98.4 79 18 154/91 (112) 99 06/18/19 21:58 98.4 76 20 132/78 97 Room Air 06/18/19 19:15 98.0 88 15 122/79 100 Room Air 06/18/19 16:09 92 16 Room Air 06/18/19 16:08 97.6 92 16 117/85 98 Room Air Intake and Output 06/18/19 06/19/19 19:00 07:00 Intake Total 720 ml Balance 720 ml Intake Oral 720 ml # Voids 2 # Bowel Movements 2 Laboratory Tests Test 06/18/19 15:42 06/19/19 03:00 White Blood Count 10.0 K/UL (4.8-10.8) Red Blood Count 4.32 M/UL (4.70-6.10) L Hemoglobin 14.8 G/DL (14.2-18.0) Hematocrit 42.5 % (42.0-52.0) Mean Corpuscular Volume 98 FL (80-99) Mean Corpuscular Hemoglobin 34.3 PG (27.0-31.0) H Mean Corpuscular Hemoglobin Concent 34.9 G/DL (32.0-36.0) Red Cell Distribution Width 11.9 % (11.6-14.8) Platelet Count 322 K/UL (150-450) Mean Platelet Volume 6.6 FL (6.5-10.1) Neutrophils (%) (Auto) 68.9 % (45.0-75.0) Lymphocytes (%) (Auto) 20.4 % (20.0-45.0) Monocytes (%) (Auto) 9.0 % (1.0-10.0) Eosinophils (%) (Auto) 0.3 % (0.0-3.0) Basophils (%) (Auto) 1.4 % (0.0-2.0) Sodium Level 141 MMOL/L (136-145) Potassium Level 5.4 MMOL/L (3.5-5.1) H Chloride Level 106 MMOL/L (98-107) Carbon Dioxide Level 26 MMOL/L (21-32) Anion Gap 10 mmol/L (5-15) Blood Urea Nitrogen 26 mg/dL (7-18) H Creatinine 1.9 MG/DL (0.55-1.30) H Estimat Glomerular Filtration Rate 45.7 mL/min (>60) Glucose Level 102 MG/DL (74-106) Calcium Level 10.1 MG/DL (8.5-10.1) Total Bilirubin 0.4 MG/DL (0.2-1.0) Aspartate Amino Transf (AST/SGOT) 28 U/L (15-37) Alanine Aminotransferase (ALT/SGPT) 27 U/L (12-78) Alkaline Phosphatase 86 U/L (46-116) Total Protein 9.5 G/DL (6.4-8.2) H Albumin 4.1 G/DL (3.4-5.0) Globulin 5.4 g/dL Albumin/Globulin Ratio 0.8 (1.0-2.7) L Salicylates Level 3.1 ug/mL (2.8-20) Acetaminophen Level < 2 MCG/ML (10-30) L Serum Alcohol < 3 mg/dL Stool Occult Blood Negative (NEGATIVE) Height (Feet): 5 Height (Inches): 10.00 Weight (Pounds): 269 Medications Current Medications Medications (Trade) Dose Ordered Sig/Kalani Route PRN Reason Start Time Stop Time Status Last Admin Dose Admin Aripiprazole (Abilify) 5 mg DAILY ORAL 06/19/19 09:00 07/19/19 08:59 9/30/19 08:17 Bupropion HCl (Wellbutrin SR) 150 mg BID ORAL 06/19/19 09:00 07/19/19 08:59 06/19/19 08:17 Diphenhydramine HCl (Benadryl) 25 mg Q6H PRN IVP Itching 06/18/19 23:00 07/18/19 22:59 06/19/19 09:33 Hydromorphone HCl (Dilaudid) 2 mg Q3H PRN IVP For Pain 06/19/19 01:45 06/26/19 01:44 06/19/19 13:17 Lisinopril (Zestril) 10 mg DAILY ORAL 06/19/19 09:00 07/19/19 08:59 06/19/19 08:17 Montelukast Sodium (Singulair) 10 mg DAILY ORAL 06/19/19 09:00 07/19/19 08:59 06/19/19 08:16 Ondansetron HCl (Zofran) 4 mg Q6H PRN IVP Nausea & Vomiting 06/19/19 01:45 07/19/19 01:44 Pantoprazole (Protonix) 40 mg DAILY IVP 06/19/19 09:00 07/19/19 08:59 06/19/19 08:18 Quetiapine Fumarate (SEROquel) 100 mg DAILY ORAL 06/19/19 09:00 07/19/19 08:59 06/19/19 08:17 Assessment/Plan Problem List: (1) Intractable diarrhea ICD Codes: R19.7 - Diarrhea, unspecified SNOMED: 675540155 (2) Crohns disease ICD Codes: K50.90 - Crohn's disease, unspecified, without complications SNOMED: 24851136 (3) Suicidal ideation ICD Codes: R45.851 - Suicidal ideations SNOMED: 3115754 (4) Substance abuse ICD Codes: F19.10 - Other psychoactive substance abuse, uncomplicated SNOMED: 22117555 Assessment/Plan: iv fluids GI evaluation symptomatic treatment stool for o/p renal evaluation Tyrell Kelley MD Jun 19, 2019 13:49
[2019-06-19] MEDS ORDERED: D5 1/2NS 1,000 ML IV ONE (15:22)
[2019-06-19 16:00] VITALS: BP 102/61
--- NOTE | 2019-06-19 16:15 | History and Physical Report ---
DATE OF ADMISSION: 06/18/2019 DATE AND TIME SEEN: 06/19/2019 at 9 a.m. CONSULTANTS: 1. Tyrell Kelley M.D. 2. Benjamin Coronado M.D. 3. Tylor Weller M.D. 4. Angie Hadley M.D. CHIEF COMPLAINT: Auditory hallucination, renal failure, abdominal pain, diarrhea. BRIEF HISTORY: This is a 49-year-old male, who lives at home, who has a history of transgender, started hearing voices, complained of some abdominal pain and diarrhea, came to [place], diagnosed with above, admitted to medical floor for further treatment. Currently, calmer in bed, slightly confused still, no complaint. REVIEW OF SYSTEMS: No chest pain. No shortness of breath. Slight nausea. No vomiting. Some diarrhea. PAST MEDICAL HISTORY: Includes renal failure, transgender, schizophrenia, and Crohn disease. PAST SURGICAL HISTORY: Abdominal surgery. ALLERGIES: Codeine, Haldol, morphine, and . MEDICATIONS: Include Abilify, Wellbutrin, Restoril, Singulair, Seroquel, Protonix, Zofran, Dilaudid, and Benadryl. SOCIAL HISTORY: Positive smoke. Positive alcohol. Positive marijuana use. PHYSICAL EXAMINATION: GENERAL: Calm in bed, oriented x2, in no acute distress. VITAL SIGNS: Show temperature is 97 degrees, pulse 81, respirations 18, and blood pressure 136/97. CARDIOVASCULAR: No murmurs. LUNGS: Distant and clear. ABDOMEN: Bowel sounds positive. Nontender. Nondistended. EXTREMITIES: No cyanosis or edema. NEUROLOGIC: The patient moves all extremities, slightly weak. LABORATORY AND DIAGNOSTIC DATA: Labs at this time show CBC is normal. BMP show potassium 5.4, BUN and creatinine 26 and 1.9, otherwise normal. Urine tox, Tylenol less than 2. ASSESSMENT: 1. Auditory hallucination. 2. Abdominal pain. 3. Diarrhea. 4. Renal failure. 5. Schizophrenia. 6. Hypertension. 7. Crohn disease. 8. Drug abuse. PLAN: 1. Blood pressure and pain control. 2. Dietary followup. 3. Resume home medications. 4. PT and dietary evaluation. 5. CBC and BMP in the morning. 6. Psych evaluation, possible psych transfer. Young Hicks D.O. DR: IRVIN JOB#: [id number] CC:
[2019-06-19 16:32] LABS: APPEARANCE,URINE SLIGHTLY CLOUDY; BILIRUBIN, URINE NEGATIVE (NEGATIVE); GLUCOSE, URINE (UA) NEGATIVE (NEGATIVE); KETONES,URINE NEGATIVE (NEGATIVE); LEUKOCYTE ESTERASE ,URINE 3+ (NEGATIVE); NITRITE,URINE NEGATIVE (NEGATIVE); PH,URINE 5 (4.5-8.0); PROTEIN,URINE 1+ (NEGATIVE); UROBILINOGEN,URINE NORMAL MG/DL (0.0-1.0)
[2019-06-19 16:35] LABS: COLOR,URINE YELLOW
--- NOTE | 2019-06-19 17:42 | NUR ---
CASE MANAGEMENT: INITIAL REVIEW 49 YO M PRESENTED TO ED FROM HOME CC: SI. HEARING VOICES. PMHx: HTN. SI:RENAL INSUFFICIENCY. HEARING VOICES. T 98.4 HR 110 RR 20 B/P 129/79 SATS 96% ON RA K 5.4 BUN 26 CR 1.9 UTOX (+BENZOS AND COCAINE) IS: ZYPREXA PO X1 NS BOLUS X1 PATIENT ADMITTED TO MED/SURG 06/18/2019 @ 1823 DCP: PATIENT TO BE DISCHARGED TO APPROPRIATE LOCATION ONCE MEDICALLY CLEARED. PLAN OF CARE: PSYCH EVAL 06/19/2019 SI:RENAL INSUFFICIENCY. HEARING VOICES. T 97.8 HR 77 RR 18 B/P 117/74 SATS 97% ON RA NO LABS TODAY IS: WELLBUTRIN PO BID ABILIFY PO QD SEROQUEL PO QD IVF @ 100 mL/HR MED/SURG DCP: PATIENT TO BE DISCHARGED TO APPROPRIATE LOCATION ONCE MEDICALLY CLEARED. PLAN OF CARE: IV HYDRATION Addendum: 06/19/19 at 1806 by Carlie Hanson CM INTERQUAL MET
--- NOTE | 2019-06-19 19:20 | NUR ---
NURSE NOTES: Received report from STEVE Puente. Patient sitting up in bed, no distress noted.
--- NOTE | 2019-06-19 19:45 | NUR ---
NURSE NOTES: Patient wishes to have heating pad on IV site. IV intact, patent. Provided heat pack with good relief per patient. Assessment done, patient has refused to allow nurses to obtain rectal mucosa sample. Patient states will do it herself and doesn't want nurse to see her. Patient prefers to be called Meena. She is alert, oriented x4. Tolerating PO intake well. Bed in low position, side rails up x1, patient refuses to have both rails up, explained that it is a safety measure and patient understands, but refuses. Bed is in locked position, call light within reach. Will continue to monitor.
[2019-06-19 20:00] VITALS: BP 96/62
--- NOTE | 2019-06-19 20:09 | NUR ---
NURSE NOTES: Pt has disruptive bx , requiring repeated rounds to room , to de escalate bx. Pt cursed at charge nurse as well as Dr Theodore. Dr Hicks called earlier in shift due to pt concerns that IV site might be lost, Needlemaker requested PO medications for use of Dilaudid , and Benadryl. No response. Pt informed that Dr was called for possible route change. " I am okay Im going to make this line work" Pt has rapid mood changes from almost childlike bx, Flinching, and Crying out in pain when IV was attempted. Pending orders for tomorrow. Urine sent to lab. Pt is calm at this time denies suicidal ideation and verbalization of any attempt to harm self. Current plan will be followed. Pt preference to be called Meena endorsed to Oncoming Nurse .
--- NOTE | 2019-06-19 20:15 | NUR ---
NURSE NOTES: Dr Hicks and Warren aware that pt fluids have not started 2 to refusal . Pt required extensive time to render care to 2 to disruptive and attention seeking bx
--- NOTE | 2019-06-19 21:35 | NUR ---
NURSE NOTES: Patient complains of abdominal pain 10/10. Will give Dilaudid as prescribed.
--- NOTE | 2019-06-19 22:25 | NUR ---
NURSE NOTES: Patient would like sandwich, crackers, juices and water. Provided these, will obtain sandwich. Patient complain of itching, given Benadryl as prescribed, applied lotion to back. Will continue to monitor.
--- NOTE | 2019-06-19 23:10 | NUR ---
NURSE NOTES: Patient threw up in toilet, unable to measure amount. Given Zofran as ordered, IV flushing well but slow. Encouraged to lay down, but patient continues to stay up in chair or walking in room. States she wants IV fluids now, she had earlier refused during day shift.
[2019-06-20] VITALS: BP 97/63
--- NOTE | 2019-06-20 00:25 | NUR ---
NURSE NOTES: Charge nurse starting IV at this time, will continue to monitor.
--- NOTE | 2019-06-20 01:17 | NUR ---
NURSE NOTES: Nurse was unable to start IV. STEVE Ramires here attempting IV start. Patient upset that she has to wait for Benadryl, which is not due yet. Offered to apply lotion, patient cussed and said that it wouldn't help. Will continue to monitor.
--- NOTE | 2019-06-20 02:00 | NUR ---
NURSE NOTES: Nurses were unable to start new IV site. Site still patent on R index finger, flushing slow, positional. Given Dilaudid for pain control, see eMAR. No nausea, no vomiting. Will continue to monitor.
[2019-06-20 04:00] VITALS: BP 107/66
[2019-06-20] MEDS: DiphenhydrAMINE 50mg/ml Inj IVP PRN ×4 (04:33→23:01)
--- NOTE | 2019-06-20 04:58 | NUR ---
NURSE NOTES: Given Benadryl IVP per orders for itching. Applied lotion to back, bilat legs and arms for itching relief and comfort. Encouraged to stay in bed to sleep as she has been up ambulating in room most of the night. Will continue to monitor.
--- NOTE | 2019-06-20 05:53 | NUR ---
NURSE NOTES: While flushing NS after giving Dilaudid IVP, noted leaking and increased pain at site. IV saline lock discontinued, offered warm pack, patient refused. Requested RN to come to start another IV.
--- NOTE | 2019-06-20 06:01 | NUR ---
NURSE NOTES: STEVE Melgar here to start IV.
--- NOTE | 2019-06-20 06:20 | NUR ---
NURSE NOTES: IV was started by STEVE Melgar, gauge #24 RAC.
--- NOTE | 2019-06-20 06:20 | NUR ---
NURSE NOTES: Placed phone call to physician to obtain order for Dilaudid, as medication that was given, was most probably leaked out. Patient is very upset that we cannot give medication immediately, explained reasoning for MD phone call. Charge nurse and guard supervisor notified of this. Awaiting physician phone call.
--- NOTE | 2019-06-20 06:58 | NUR ---
NURSE NOTES: Placed second call to physician regarding Dilaudid order.
--- NOTE | 2019-06-20 06:59 | NUR ---
NURSE NOTES: Patient extremely upset, cussing, security here to assist as needed.
[2019-06-20] MEDS ORDERED: HYDROmorphone 1mg/ml Carpuject IVP SCH (07:15)
--- NOTE | 2019-06-20 07:25 | NUR ---
HAND-OFF: Report given to STEVE Meléndez.
--- NOTE | 2019-06-20 07:34 | NUR ---
NURSE NOTES: Received Dilaudid order, given as ordered. See eMAR. Patient apologized to me about being upset, stating "I have mental issues". Given reassurance Addendum: 06/20/19 at 0807 by Gabriela Hale RN Given reassurance and encouraged to call as needed. STates she wanted rice chix and sugar with breakfast but hasn't received. Placed call to dietary and requested items to be sent maribel.
--- NOTE | 2019-06-20 07:35 | NUR ---
NURSE NOTES: WALKING ROUNDS DONE WITH OUTGOING RN. PATIENT UP AND PACING BACK AND FORTH IN ROOM. NIGHT RN RECEIVED ORDER FOR ONE TIME DOSE OF DILAUDID AND ADMINISTERED TO PATIENT VIA IVP. QUESTIONS ANSWERED AND NEEDS MET AT THIS TIME. DISCUSSED PLAN OF CARE AND MEDICATION SCHEDULE. WILL CONTINUE TO REMIND. CALL LIGHT WITHIN REACH.
--- NOTE | 2019-06-20 07:38 | General Progress Note ---
Assessment/Plan Problem List: (1) UTI (urinary tract infection) ICD Codes: N39.0 - Urinary tract infection, site not specified SNOMED: 91785843 (2) Suicidal ideation ICD Codes: R45.851 - Suicidal ideations SNOMED: 3696481 (3) Intractable diarrhea ICD Codes: R19.7 - Diarrhea, unspecified SNOMED: 685595862 (4) Crohns disease ICD Codes: K50.90 - Crohn's disease, unspecified, without complications SNOMED: 09283162 (5) Substance abuse ICD Codes: F19.10 - Other psychoactive substance abuse, uncomplicated SNOMED: 69876184 (6) Renal insufficiency ICD Codes: N28.9 - Disorder of kidney and ureter, unspecified SNOMED: 362555908, 450861821 Assessment/Plan: abx per *ID for UTI add mesalamine neg stool ob neg stool for C.diff pain control hold GI procedures for now fu Psych Subjective ROS Limited/Unobtainable: Yes Allergies: Coded Allergies: CODEINE (Unverified Allergy, Intermediate, 04/23/19) HALOPERIDOL (Verified Allergy, Unknown, 06/18/19) MORPHINE (Verified Allergy, Unknown, 04/29/16) PROCHLORPERAZINE (Verified Allergy, Unknown, 04/29/16) Objective Last 24 Hour Vital Signs Date Time Temp Pulse Resp B/P (MAP) Pulse Ox O2 Delivery O2 Flow Rate FiO2 06/20/19 04:00 97.6 88 20 107/66 (80) 96 06/20/19 00:00 97.7 88 18 97/63 (74) 96 06/19/19 21:00 Room Air 06/19/19 20:00 97.5 86 18 96/62 (73) 96 06/19/19 16:00 97.7 87 18 102/61 (75) 100 06/19/19 12:00 97.8 77 18 117/74 (88) 97 06/19/19 09:00 Room Air 06/19/19 08:17 126/89 06/19/19 08:00 97.8 88 18 126/89 (101) 97 Intake and Output 06/19/19 06/20/19 18:59 06:59 # Voids 4 # Bowel Movements 2 Laboratory Tests 06/19/19 16:20: Urine Color Yellow, Urine Appearance Slightly cloudy, Urine pH 5, Urine Specific [place] 1.010, Urine Protein 1+H, Urine Glucose (UA) Negative, Urine Ketones Negative, Urine Blood 4+H, Urine Nitrite Negative, Urine Bilirubin Negative, Urine Urobilinogen Normal, Urine Leukocyte Esterase 3+H, Urine RBC 5- 10H, Urine WBC 10-15H, Urine Squamous Epithelial Cells None, Urine Amorphous Sediment FewH, Urine Bacteria ManyH, Urine Opiates Screen Negative, Urine Barbiturates Screen Negative, Phencyclidine (PCP) Screen Negative, Urine Amphetamines Screen Negative, Urine Benzodiazepines Screen Negative, Urine Cocaine Screen PositiveH, Urine Marijuana (THC) Screen PositiveH Height (Feet): 5 Height (Inches): 10.00 Weight (Pounds): 269 General Appearance: alert EENT: normal ENT inspection Neck: supple Cardiovascular: normal rate Respiratory/Chest: decreased breath sounds Abdomen: normal bowel sounds, non tender, soft Extremities: non-tender Tylor Weller MD Jun 20, 2019 07:38
--- NOTE | 2019-06-20 07:43 | NUR ---
NURSING SUBSTANCE ABUSE SPECIALIST NOTE: Two phone calls received in the first 30 minutes of my shift from patient. During initial call, patient stated "I want my fucking medicine now". Asked for further clarification regarding request. Stated "my pain medicine is overdue!" and "the damn nurse that started my IV doesn't know what the hell she is doing!". I called Cassius and Gregoria, shift superintendent Charge Nurse was aware of request for pain medication and stated it is not yet due. She will notify oncoming RN assigned to patient of this request. Second call received 10 minutes later. Reassured patient that nursing aware of his request. Patient then stated "I don't give a damn if this is shift change. I want to get the hell out of here today!" Patient then hung up on me, when I was still speaking.
[2019-06-20 08:00] VITALS: BP 125/79
[2019-06-20] MEDS: Montelukast 10mg tablet ORAL SCH (09:21)
[2019-06-20] MEDS: Mesalamine 400mg cap ORAL SCH ×3 (09:21→17:55)
[2019-06-20] MEDS: BuPROPion SR 150mg tab ORAL SCH ×2 (09:21→17:56)
[2019-06-20 10:36] LABS: BASOPHILS % (AUTO) 1.1 % (0.0-2.0); EOSINOPHILS % (AUTO) 3.8 % (0.0-3.0); HEMATOCRIT 34.7 % (42.0-52.0); HEMOGLOBIN 11.6 G/DL (14.2-18.0); LYMPHOCYTES % (AUTO) 31.7 % (20.0-45.0); MEAN CORPUSCULAR VOLUME 98 FL (80-99); MONOCYTES % (AUTO) 10.4 % (1.0-10.0); PLATELET COUNT 312 K/UL (150-450); RED BLOOD COUNT 3.53 M/UL (4.70-6.10); RED CELL DISTRIBUTION WIDTH 12.2 % (11.6-14.8); WHITE BLOOD COUNT 8.3 K/UL (4.8-10.8)
--- NOTE | 2019-06-20 10:50 | NUR ---
Social Service Note SW spoke with [facility] [phone] no beds at this time. Referral faxed to [facility] [phone] (p) [phone] (f). Addendum: 06/20/19 at 1432 by DHEERAJ GALE Patient has been declined at all [facility] facilities. Patient is a frequent flyer, non-compliant, and disruptive.
[2019-06-20 10:51] LABS: ALANINE AMINOTRANSFERASE 34 U/L (12-78); ALBUMIN 3.7 G/DL (3.4-5.0); ALBUMIN/GLOBULIN RATIO 0.8 (1.0-2.7); ALKALINE PHOSPHATASE 79 U/L (46-116); ANION GAP 9 mmol/L (5-15); ASPARTATE AMINO TRANSFERASE 31 U/L (15-37); BILIRUBIN,TOTAL 0.4 MG/DL (0.2-1.0); BLOOD UREA NITROGEN 36 mg/dL (7-18); CALCIUM 8.7 MG/DL (8.5-10.1); CARBON DIOXIDE 27 MMOL/L (21-32); CHLORIDE 101 MMOL/L (98-107); CREATININE 2.4 MG/DL (0.55-1.30); PHOSPHORUS 5.6 MG/DL (2.5-4.9); POTASSIUM 3.9 MMOL/L (3.5-5.1); SODIUM 137 MMOL/L (136-145)
--- NOTE | 2019-06-20 11:35 | NUR ---
HAND SEWER SHOESMUTUAL FUND MANAGER SI: RENAL INSUFFICIENT T. 98.1 HR 85 RR 21 B/P 97/63 BUN 36 CR 2.4 PHOS 5.7 URIC ACID 7.8 IS: ABILIFY PO WELLBUTRIN PO SEROQUEL PO DILAUDID IV MED/SURG STATUS
[2019-06-20 11:52] VITALS: BP 115/65
--- NOTE | 2019-06-20 12:01 | Nephrology Progress Note ---
Assessment/Plan Problem List: (1) Renal failure (ARF), acute on chronic (2) Substance abuse (3) Crohns disease (4) UTI (urinary tract infection) (5) Psychiatric disorder Assessment Renal failure-? Acute- ? Dehydration Crohn's exacerbation. Depression. Schizophrenia. drug abuse Plan Urine studies Urine tox screen Hydrate Kidney YUKO BP check per orders Subjective ROS Limited/Unobtainable: No Interval Events/Complaints would like to be called [facility] Objective Objective Last 24 Hour Vital Signs Date Time Temp Pulse Resp B/P (MAP) Pulse Ox O2 Delivery O2 Flow Rate FiO2 06/20/19 11:52 98.3 97 22 115/65 (82) 98 06/20/19 09:51 98.1 06/20/19 09:00 Room Air 06/20/19 08:04 98.1 06/20/19 08:00 98.1 85 21 125/79 (94) 98 06/20/19 04:00 97.6 88 20 107/66 (80) 96 06/20/19 00:00 97.7 88 18 97/63 (74) 96 06/19/19 21:00 Room Air 06/19/19 20:00 97.5 86 18 96/62 (73) 96 06/19/19 16:00 97.7 87 18 102/61 (75) 100 06/19/19 12:00 97.8 77 18 117/74 (88) 97 Intake and Output 06/19/19 06/20/19 19:00 07:00 Intake Total 840 ml Balance 840 ml Intake Oral 840 ml # Voids 4 5 # Bowel Movements 2 1 Laboratory Tests 06/19/19 16:20: Urine Color Yellow, Urine Appearance Slightly cloudy, Urine pH 5, Urine Specific [place] 1.010, Urine Protein 1+H, Urine Glucose (UA) Negative, Urine Ketones Negative, Urine Blood 4+H, Urine Nitrite Negative, Urine Bilirubin Negative, Urine Urobilinogen Normal, Urine Leukocyte Esterase 3+H, Urine RBC 5- 10H, Urine WBC 10-15H, Urine Squamous Epithelial Cells None, Urine Amorphous Sediment FewH, Urine Bacteria ManyH, Urine Opiates Screen Negative, Urine Barbiturates Screen Negative, Phencyclidine (PCP) Screen Negative, Urine Amphetamines Screen Negative, Urine Benzodiazepines Screen Negative, Urine Cocaine Screen PositiveH, Urine Marijuana (THC) Screen PositiveH 06/20/19 10:30: White Blood Count 8.3, Red Blood Count 3.53L, Hemoglobin 11.6L, Hematocrit 34.7L , Mean Corpuscular Volume 98, Mean Corpuscular Hemoglobin 32.8H, Mean Corpuscular Hemoglobin Concent 33.4, Red Cell Distribution Width 12.2, Platelet Count 312, Mean Platelet Volume 6.5, Neutrophils (%) (Auto) 53.0, Lymphocytes (% ) (Auto) 31.7, Monocytes (%) (Auto) 10.4H, Eosinophils (%) (Auto) 3.8H, Basophils (%) (Auto) 1.1, Sodium Level 137, Potassium Level 3.9, Chloride Level 101, Carbon Dioxide Level 27, Anion Gap 9, Blood Urea Nitrogen 36H, Creatinine 2.4H, Estimat Glomerular Filtration Rate 34.9, Glucose Level 127H, Hemoglobin A1c [Pending], Uric Acid [Pending], Calcium Level 8.7, Phosphorus Level 5.6H, Magnesium Level 1.7L, Iron Level [Pending], Unsaturated Iron Binding [Pending], Ferritin [Pending], Total Bilirubin 0.4, Aspartate Amino Transf (AST/SGOT) 31, Alanine Aminotransferase (ALT/SGPT) 34, Alkaline Phosphatase 79, C-Reactive Protein, Quantitative [Pending], Total Protein 8.2, Albumin 3.7, Globulin 4.5, Albumin/Globulin Ratio 0.8L, Vitamin B12 Level [Pending], Folate [Pending], Thyroid Stimulating Hormone (TSH) [Pending] Height (Feet): 5 Height (Inches): 10.00 Weight (Pounds): 269 General Appearance: no apparent distress Cardiovascular: normal rate Respiratory/Chest: decreased breath sounds Abdomen: distended, other - obese Benjamin Coronado MD Jun 20, 2019 12:01
[2019-06-20 12:26] LABS: FERRITIN 169 NG/ML (8-388)
[2019-06-20 12:39] LABS: % IRON SATURATION 21 % (15-50); IRON 55 ug/dL (50-175); TOTAL IRON BINDING CAPACITY 259 ug/dL (250-450)
--- NOTE | 2019-06-20 13:32 | General Progress Note ---
Assessment/Plan Problem List: (1) Hearing voices ICD Codes: R44.0 - Auditory hallucinations SNOMED: 240981939 (2) Substance abuse ICD Codes: F19.10 - Other psychoactive substance abuse, uncomplicated SNOMED: 72867623 (3) Crohns disease ICD Codes: K50.90 - Crohn's disease, unspecified, without complications SNOMED: 76960161 (4) Intractable diarrhea ICD Codes: R19.7 - Diarrhea, unspecified SNOMED: 786576304 (5) Renal insufficiency ICD Codes: N28.9 - Disorder of kidney and ureter, unspecified SNOMED: 590437426, 730228126 (6) UTI (urinary tract infection) ICD Codes: N39.0 - Urinary tract infection, site not specified SNOMED: 90291386 (7) Renal failure (ARF), acute on chronic ICD Codes: N17.9 - Acute kidney failure, unspecified; N18.9 - Chronic kidney disease, unspecified SNOMED: 234619116 (8) Psychiatric disorder ICD Codes: F99 - Mental disorder, not otherwise specified SNOMED: 78493622 Status: stable, progressing Assessment/Plan: pt diet psyc tx transfer care to dr holm per insurance Subjective Constitutional: Reports: weakness Allergies: Coded Allergies: CODEINE (Unverified Allergy, Intermediate, 04/23/19) HALOPERIDOL (Verified Allergy, Unknown, 06/18/19) MORPHINE (Verified Allergy, Unknown, 04/29/16) PROCHLORPERAZINE (Verified Allergy, Unknown, 04/29/16) All Systems: reviewed and negative except above Subjective calm in room Objective Last 24 Hour Vital Signs Date Time Temp Pulse Resp B/P (MAP) Pulse Ox O2 Delivery O2 Flow Rate FiO2 06/20/19 11:52 98.3 97 22 115/65 (82) 98 06/20/19 09:51 98.1 06/20/19 09:00 Room Air 06/20/19 08:04 98.1 06/20/19 08:00 98.1 85 21 125/79 (94) 98 06/20/19 04:00 97.6 88 20 107/66 (80) 96 06/20/19 00:00 97.7 88 18 97/63 (74) 96 06/19/19 21:00 Room Air 06/19/19 20:00 97.5 86 18 96/62 (73) 96 06/19/19 16:00 97.7 87 18 102/61 (75) 100 Intake and Output 06/19/19 06/20/19 19:00 07:00 Intake Total 840 ml Balance 840 ml Intake Oral 840 ml # Voids 4 5 # Bowel Movements 2 1 Laboratory Tests 06/19/19 16:20: Urine Color Yellow, Urine Appearance Slightly cloudy, Urine pH 5, Urine Specific [place] 1.010, Urine Protein 1+H, Urine Glucose (UA) Negative, Urine Ketones Negative, Urine Blood 4+H, Urine Nitrite Negative, Urine Bilirubin Negative, Urine Urobilinogen Normal, Urine Leukocyte Esterase 3+H, Urine RBC 5- 10H, Urine WBC 10-15H, Urine Squamous Epithelial Cells None, Urine Amorphous Sediment FewH, Urine Bacteria ManyH, Urine Opiates Screen Negative, Urine Barbiturates Screen Negative, Phencyclidine (PCP) Screen Negative, Urine Amphetamines Screen Negative, Urine Benzodiazepines Screen Negative, Urine Cocaine Screen PositiveH, Urine Marijuana (THC) Screen PositiveH 06/20/19 10:30: White Blood Count 8.3, Red Blood Count 3.53L, Hemoglobin 11.6L, Hematocrit 34.7L , Mean Corpuscular Volume 98, Mean Corpuscular Hemoglobin 32.8H, Mean Corpuscular Hemoglobin Concent 33.4, Red Cell Distribution Width 12.2, Platelet Count 312, Mean Platelet Volume 6.5, Neutrophils (%) (Auto) 53.0, Lymphocytes (% ) (Auto) 31.7, Monocytes (%) (Auto) 10.4H, Eosinophils (%) (Auto) 3.8H, Basophils (%) (Auto) 1.1, Sodium Level 137, Potassium Level 3.9, Chloride Level 101, Carbon Dioxide Level 27, Anion Gap 9, Blood Urea Nitrogen 36H, Creatinine 2.4H, Estimat Glomerular Filtration Rate 34.9, Glucose Level 127H, Hemoglobin A1c 4.8, Uric Acid 7.8H, Calcium Level 8.7, Phosphorus Level 5.6H, Magnesium Level 1.7L, Iron Level 55, Total Iron Binding Capacity 259, Percent Iron Saturation 21, Unsaturated Iron Binding 204, Ferritin 169, Total Bilirubin 0.4, Aspartate Amino Transf (AST/SGOT) 31, Alanine Aminotransferase (ALT/SGPT) 34, Alkaline Phosphatase 79, C-Reactive Protein, Quantitative 0.9, Total Protein 8.2 , Albumin 3.7, Globulin 4.5, Albumin/Globulin Ratio 0.8L, Vitamin B12 Level 270 , Folate 15.4, Thyroid Stimulating Hormone (TSH) 4.470H Height (Feet): 5 Height (Inches): 10.00 Weight (Pounds): 269 General Appearance: lethargic EENT: normal ENT inspection Neck: normal alignment Cardiovascular: normal peripheral pulses, normal rate, regular rhythm Respiratory/Chest: chest wall non-tender, lungs clear, normal breath sounds Abdomen: normal bowel sounds, non tender, soft Extremities: normal inspection Edema: no edema noted Arm (L), no edema noted Arm (R), no edema noted Leg (L), no edema noted Leg (R), no edema noted Pedal (L), no edema noted Pedal (R), no edema noted Generalized Neurologic: motor weakness Skin: normal pigmentation, warm/dry Young Hicks DO Jun 20, 2019 13:32
--- NOTE | 2019-06-20 14:04 | NUR ---
NURSE NOTES: PATIENT HAS BEEN CALM AND COOPERATIVE THUS FAR.
[2019-06-20 16:00] VITALS: BP 106/67
--- NOTE | 2019-06-20 16:34 | NUR ---
Social Service Note SW contacted patient's welfare case worker Mckenna at [facility] [phone] as requested to inform her of patient's hospitalization. Homeless Coordinator met with patient. Patient clearly states he is not homeless. Prior admissions patient had been homeless. Patient confirmed address on face sheet [id number] [place] [address]() as the address he will return to upon discharge. Patient not requesting additional resources. Homeless check list isn't required upon discharge.
[2019-06-20] MEDS ORDERED: D5 1/2NS 1000ml IV ONE (17:25)
[2019-06-20] MEDS ORDERED: NS 500ML ONE (17:25)
--- NOTE | 2019-06-20 17:45 | Progress Note ---
DATE: 06/20/2019 SUBJECTIVE: The patient is in bed. No behavior issues. Today, calmer. Still demanding. The patient stated that he would like to get in contact with his case packer and sealer. He is [place] [address] and his rent is due. He would like to continue on his current psychotropic medication. MENTAL STATUS EXAMINATION: The patient is alert and oriented x4. He is dramatic. His mood is anxious. Affect is blunted. Thought process is circumstantial. Thought content, no suicidal or homicidal ideation. Cognition is intact. Insight and judgement is impaired. ASSESSMENT: Substance use disorder, rule out bipolar. PLAN: 1. We will continue with . Continue Wellbutrin. 2. Provide the patient with reality orientation and supportive therapy. Angie Hadley M.D. DR: AUGUSTO JOB#: [id number] CC: TERE
--- NOTE | 2019-06-20 19:30 | Consultation ---
DATE OF CONSULTATION: 06/19/2019 NOTE: POOR AUDIO HISTORY OF PRESENT ILLNESS: The patient is a 49-year-old male, who would like to be identified as a woman and to be called Meena, who is admitted into the hospital after he took several pills of Wellbutrin. During the evaluation, the patient is denying and stated that he took Wellbutrin before. The patient is very animated and dramatic, using inappropriate language The patient denied any suicidal or homicidal ideation. The patient and stated that he is not in the hospital due to psychiatric issues. The patient is very demanding. PAST PSYCHIATRY HISTORY: He has a history of depression. He is currently on multiple psychotropic medications. He is refusing to answer the questions. He stated that he has a history of depression, not any psychotic symptoms. He would like to take two antipsychotics which is Abilify and Seroquel, in addition he would like to take Wellbutrin. PAST MEDICAL HISTORY: Significant for renal insufficiency, Crohn disease, C. difficile colitis. ALLERGIES: Codeine, Haldol, morphine, prochlorperazine. SUBSTANCE ABUSE HISTORY: He stated that he in the past; however, he is currently not using. His urine toxicology was positive for cocaine and marijuana. MENTAL STATUS EXAMINATION: The patient is alert and oriented x4. Mood is anxious and irritable. Affect was Thought process overinclusive. Thought content, no suicidal or homicidal ideation. He has paranoid ideation. Insight and judgment is poor. ASSESSMENT: [place] I Cocaine and cannabis abuse, rule out bipolar disorder. [place] II Borderline personality. [place] III Diarrhea. [place] IV Low to moderate. [place] V 50 PLAN: 1. The patient will be continued on current psychotropic medication. 2. The patient is not an imminent danger to self or others. 3. We will discontinue Angie Hadley M.D. DR: Franklyn JOB#: [id number] CC: TERE
--- NOTE | 2019-06-20 19:40 | NUR ---
NURSE NOTES: Pt complaint of pain when IV on right anticubital is flushed. Discontinue IV. Attempted to re-insert new IV with out success. Called ICU for someone to try the IV.
--- NOTE | 2019-06-20 19:49 | NUR ---
NURSE NOTES: PATIENT REMAINS CALM AND COOPERATIVE THROUGHOUT THE DAY. REQUESTING DILAUDID AND BENADRYL ATC WHEN DUES FOR ABD PAIN AND PRURITIS.
[2019-06-20] MEDS: Tamsulosin 0.4mg cap ORAL SCH (21:00)
--- NOTE | 2019-06-20 21:39 | NUR ---
NURSE NOTES: Dr Kelley notified that IV blew, attempted to re-insert new IV with success. ICU nurse trying to insert new IV at this time. Received order if unable to re-insert new IV, change Dilaudid to sub cut. and Benadryl to PO. Will carry out orders.
--- NOTE | 2019-06-20 21:45 | NUR ---
NURSE NOTES: New IV left hand #24 patent and intact. Will administer pain medication. Pt refused IV fluid ordered.
--- NOTE | 2019-06-20 22:30 | NUR ---
NURSES NOTES: Met patient in room, getting up and pacing from the room to the hallway quite often. Patient appears restless and has the propensity to be a bit combative. A/O X4, patient is able to express needs. VS WNL. New IV placed due to infiltration, left hand #24 gauge, now patent and intact. All due routine and PRN medications given after new IV properly placed. Pt refused IV fluid order. Consuming adequate amounts of fluids reinforced with patient. Patient will continue to be monitored through out the night. Bed at lowest level, call light within reach.
[2019-06-21] VITALS: BP 110/90
[2019-06-21 04:00] VITALS: BP 117/72
[2019-06-21] MEDS: DiphenhydrAMINE 50mg/ml Inj IVP PRN ×3 (05:08→19:40)
--- NOTE | 2019-06-21 06:12 | NUR ---
NURSE NOTES: Pt refused am labs.
--- NOTE | 2019-06-21 07:42 | NUR ---
HAND-OFF: Report given to STEVE Gomez. Pt in stable condition.
[2019-06-21 08:00] VITALS: BP 131/78
--- NOTE | 2019-06-21 08:00 | NUR ---
NURSE NOTES: Received report from Alpesh WILSON. Patient is awake and oriented, no acute distress noted. Patient only complaint is "it ramírez when I pee", no other pain noted at this time. Left hand IV intact and locked, no IVF running, patient refuses ordered IVF, educated on risks but patient still refuses. Updated on plan of care for the day. Will continue to monitor.
--- NOTE | 2019-06-21 08:35 | NUR ---
NURSE NOTES: Per Dr. Hicks, patient may have patio privileges if accompanied by a staff member. Order entered.
--- NOTE | 2019-06-21 08:40 | General Progress Note ---
Assessment/Plan Problem List: (1) Hearing voices ICD Codes: R44.0 - Auditory hallucinations SNOMED: 272513944 (2) Substance abuse ICD Codes: F19.10 - Other psychoactive substance abuse, uncomplicated SNOMED: 03748414 (3) Crohns disease ICD Codes: K50.90 - Crohn's disease, unspecified, without complications SNOMED: 61451506 (4) Intractable diarrhea ICD Codes: R19.7 - Diarrhea, unspecified SNOMED: 566937567 (5) Renal insufficiency ICD Codes: N28.9 - Disorder of kidney and ureter, unspecified SNOMED: 549502863, 117348124 (6) UTI (urinary tract infection) ICD Codes: N39.0 - Urinary tract infection, site not specified SNOMED: 24547585 (7) Renal failure (ARF), acute on chronic ICD Codes: N17.9 - Acute kidney failure, unspecified; N18.9 - Chronic kidney disease, unspecified SNOMED: 607615485 (8) Psychiatric disorder ICD Codes: F99 - Mental disorder, not otherwise specified SNOMED: 94802096 Status: stable, progressing Assessment/Plan: pt diet psyc tx cbc bmp am dc plan Subjective Constitutional: Reports: weakness Allergies: Coded Allergies: CODEINE (Unverified Allergy, Intermediate, 04/23/19) HALOPERIDOL (Verified Allergy, Unknown, 06/18/19) MORPHINE (Verified Allergy, Unknown, 04/29/16) PROCHLORPERAZINE (Verified Allergy, Unknown, 04/29/16) All Systems: reviewed and negative except above Subjective calm in room Objective Last 24 Hour Vital Signs Date Time Temp Pulse Resp B/P (MAP) Pulse Ox O2 Delivery O2 Flow Rate FiO2 06/21/19 04:00 97.0 83 20 117/72 (87) 100 06/21/19 00:00 97.5 72 20 110/90 (97) 100 06/20/19 21:00 Room Air 06/20/19 16:55 98.3 06/20/19 16:00 98.1 88 21 106/67 (80) 98 06/20/19 11:52 98.3 97 22 115/65 (82) 98 06/20/19 09:00 Room Air Intake and Output 06/20/19 06/21/19 18:59 06:59 Intake Total 800 ml 2400 ml Balance 800 ml 2400 ml Intake Oral 2400 ml IV Total 800 ml # Voids 7 # Bowel Movements 3 Laboratory Tests 06/20/19 10:30: White Blood Count 8.3, Red Blood Count 3.53L, Hemoglobin 11.6L, Hematocrit 34.7L , Mean Corpuscular Volume 98, Mean Corpuscular Hemoglobin 32.8H, Mean Corpuscular Hemoglobin Concent 33.4, Red Cell Distribution Width 12.2, Platelet Count 312, Mean Platelet Volume 6.5, Neutrophils (%) (Auto) 53.0, Lymphocytes (% ) (Auto) 31.7, Monocytes (%) (Auto) 10.4H, Eosinophils (%) (Auto) 3.8H, Basophils (%) (Auto) 1.1, Sodium Level 137, Potassium Level 3.9, Chloride Level 101, Carbon Dioxide Level 27, Anion Gap 9, Blood Urea Nitrogen 36H, Creatinine 2.4H, Estimat Glomerular Filtration Rate 34.9, Glucose Level 127H, Hemoglobin A1c 4.8, Uric Acid 7.8H, Calcium Level 8.7, Phosphorus Level 5.6H, Magnesium Level 1.7L, Iron Level 55, Total Iron Binding Capacity 259, Percent Iron Saturation 21, Unsaturated Iron Binding 204, Ferritin 169, Total Bilirubin 0.4, Aspartate Amino Transf (AST/SGOT) 31, Alanine Aminotransferase (ALT/SGPT) 34, Alkaline Phosphatase 79, C-Reactive Protein, Quantitative 0.9, Total Protein 8.2 , Albumin 3.7, Globulin 4.5, Albumin/Globulin Ratio 0.8L, Vitamin B12 Level 270 , Folate 15.4, Thyroid Stimulating Hormone (TSH) 4.470H 06/21/19 05:55: Urine Eosinophils None seen, Urine Random Sodium 50 Height (Feet): 5 Height (Inches): 10.00 Weight (Pounds): 284 General Appearance: alert EENT: normal ENT inspection Neck: normal alignment Cardiovascular: normal peripheral pulses, normal rate, regular rhythm Respiratory/Chest: chest wall non-tender, lungs clear, normal breath sounds Abdomen: normal bowel sounds, non tender, soft Extremities: normal inspection Edema: no edema noted Arm (L), no edema noted Arm (R), no edema noted Leg (L), no edema noted Leg (R), no edema noted Pedal (L), no edema noted Pedal (R), no edema noted Generalized Neurologic: responsive, motor weakness Skin: normal pigmentation, warm/dry Young Hicks DO Jun 21, 2019 08:40
[2019-06-21] MEDS: BuPROPion SR 150mg tab ORAL SCH ×2 (09:25→17:13)
[2019-06-21] MEDS: Mesalamine 400mg cap ORAL SCH ×3 (09:25→17:13)
[2019-06-21] MEDS: Montelukast 10mg tablet ORAL SCH (09:25)
--- NOTE | 2019-06-21 10:23 | NUR ---
NURSE NOTES: Informed Dr. Coronado patient is refusing all AM labs and IVF, stated he will speak with patient.
--- NOTE | 2019-06-21 10:30 | NUR ---
NURSE NOTES: Dr. Coronado attempted to speak with patient and explain the importance of daily lab work and IVF, patient became agitated, started raising voice at Dr. Coronado, started cursing at MD. Attempted to verbally calm patient, educated patient to stay in their room and attempt to relax. Will continue to monitor.
--- NOTE | 2019-06-21 10:36 | GI Progress Note ---
Assessment/Plan Problems: (1) Psychiatric disorder ICD Codes: F99 - Mental disorder, not otherwise specified SNOMED: 73828946 (2) Crohns disease ICD Codes: K50.90 - Crohn's disease, unspecified, without complications SNOMED: 62621936 (3) Substance abuse ICD Codes: F19.10 - Other psychoactive substance abuse, uncomplicated SNOMED: 75693620 (4) C. difficile colitis ICD Codes: A04.72 - Enterocolitis due to Clostridium difficile, not specified as recurrent SNOMED: 656288464 (5) Intractable diarrhea ICD Codes: R19.7 - Diarrhea, unspecified SNOMED: 610116287 Status: stable Status Narrative Discussed with Dr. Weller. Assessment/Plan neg stool ob neg stool for C.diff No plans for any GI procedures at this time, nothing to suggest Crohn's flare. Symptomatic treatment Advance diet as tolerated abx per *ID for UTI add mesalamine pain control fu Psych The patient was seen and examined at bedside and all new and available data was reviewed in the patients chart. I agree with the above findings, impression and plan. (Patient seen earlier today. Signature stamp does not reflect patient encounter time.). - Tylor Weller MD Subjective Gastrointestinal/Abdominal: Reports: no symptoms Objective Last 24 Hour Vital Signs Date Time Temp Pulse Resp B/P (MAP) Pulse Ox O2 Delivery O2 Flow Rate FiO2 06/21/19 09:00 Room Air 06/21/19 08:00 97.5 101 20 131/78 (95) 98 06/21/19 04:00 97.0 83 20 117/72 (87) 100 06/21/19 00:00 97.5 72 20 110/90 (97) 100 06/20/19 21:00 Room Air 06/20/19 16:55 98.3 06/20/19 16:00 98.1 88 21 106/67 (80) 98 06/20/19 11:52 98.3 97 22 115/65 (82) 98 Intake and Output 06/20/19 06/21/19 18:59 06:59 Intake Total 800 ml 2400 ml Balance 800 ml 2400 ml Intake Oral 2400 ml IV Total 800 ml # Voids 7 # Bowel Movements 3 Laboratory Tests Test 06/21/19 05:55 Urine Eosinophils None seen (NONE SEEN) Urine Random Sodium 50 mmol/L (20-110) Height (Feet): 5 Height (Inches): 10.00 Weight (Pounds): 284 General Appearance: no apparent distress Cardiovascular: normal rate Respiratory/Chest: normal breath sounds, no respiratory distress Abdominal Exam: normal bowel sounds, non tender, soft Extremities: normal range of motion, non-tender Noreen Alvarez NP Jun 21, 2019 10:36
--- NOTE | 2019-06-21 10:41 | Nephrology Progress Note ---
Assessment/Plan Problem List: (1) Renal failure (ARF), acute on chronic (2) Substance abuse (3) Crohns disease (4) UTI (urinary tract infection) (5) Psychiatric disorder Assessment Renal failure-? Acute- ? Dehydration Crohn's exacerbation. Depression. Schizophrenia. drug abuse Plan I had a conversation with patient at the presence of Patricia landaverde RN who reported to me that patient refuses all the blood work and IV fluids and only seek dilaudid injections. patient became agitated and started foul language. I left the room . I informed Dr Hicks that patient need Med-Psych [facility] as he only seek IV dilaudid here and hard to manage his renal issues without regular blood and urine tests Urine tox screen, positive for multi drugs Hydrate- refuses Kidney YUKO refused Subjective ROS Limited/Unobtainable: Yes Objective Objective Last 24 Hour Vital Signs Date Time Temp Pulse Resp B/P (MAP) Pulse Ox O2 Delivery O2 Flow Rate FiO2 06/21/19 09:00 Room Air 06/21/19 08:00 97.5 101 20 131/78 (95) 98 06/21/19 04:00 97.0 83 20 117/72 (87) 100 06/21/19 00:00 97.5 72 20 110/90 (97) 100 06/20/19 21:00 Room Air 06/20/19 16:55 98.3 06/20/19 16:00 98.1 88 21 106/67 (80) 98 06/20/19 11:52 98.3 97 22 115/65 (82) 98 Intake and Output 06/20/19 06/21/19 18:59 06:59 Intake Total 800 ml 2400 ml Balance 800 ml 2400 ml Intake Oral 2400 ml IV Total 800 ml # Voids 7 # Bowel Movements 3 Laboratory Tests 06/21/19 05:55: Urine Eosinophils None seen, Urine Random Sodium 50 Height (Feet): 5 Height (Inches): 10.00 Weight (Pounds): 284 General Appearance: no apparent distress Benjamin Coronado MD Jun 21, 2019 10:41
--- NOTE | 2019-06-21 10:50 | NUR ---
NURSE NOTES: Patient came out of room and became agitated with extension service specialist in charge and primary nurse. Patient is stating that he wants to smoke, educated patient that this is a non-smoking facility, patient may go outside per MD order but he may not smoke. office manager asked patient calmly not to raise his voice, that it is disturbing to the environment of care, patient called extension service specialist in charge a "bitch" and yelled at her to get out of his room. Patient is continuing to raise voice and curse at staff. gifts officer at bedside now.
--- NOTE | 2019-06-21 11:25 | NUR ---
NURSE NOTES: Nursing aging department supervisor Azeb came and spoke with patient, called phlebotomy to draw labs, surgical scheduler successfully eloy AM labs. Patient taken for patio privileges by JERRICA Jacobs and is back on the unit now, appears calmer.
[2019-06-21 11:27] LABS: BASOPHILS % (AUTO) 1.3 % (0.0-2.0); EOSINOPHILS % (AUTO) 3.4 % (0.0-3.0); HEMATOCRIT 35.1 % (42.0-52.0); HEMOGLOBIN 11.6 G/DL (14.2-18.0); LYMPHOCYTES % (AUTO) 32.1 % (20.0-45.0); MEAN CORPUSCULAR VOLUME 99 FL (80-99); NEUTROPHILS % (AUTO) 54.3 % (45.0-75.0); PLATELET COUNT 296 K/UL (150-450); RED BLOOD COUNT 3.54 M/UL (4.70-6.10); RED CELL DISTRIBUTION WIDTH 12.5 % (11.6-14.8); WHITE BLOOD COUNT 7.6 K/UL (4.8-10.8)
--- NOTE | 2019-06-21 11:36 | NUR ---
Social Service Note Second message left for patient KAMILAH Andres [phone], no return call at this time. Addendum: 06/23/19 at 0939 by DHEERAJ GALE JACK spoke with Mckenna who stated she will contact patient's program returned case inspector regarding hospitalization. Patient will require transportation back to this location.
[2019-06-21 11:40] LABS: ALANINE AMINOTRANSFERASE 29 U/L (12-78); ALBUMIN 3.8 G/DL (3.4-5.0); ALBUMIN/GLOBULIN RATIO 0.8 (1.0-2.7); ALKALINE PHOSPHATASE 75 U/L (46-116); ANION GAP 8 mmol/L (5-15); ASPARTATE AMINO TRANSFERASE 26 U/L (15-37); BILIRUBIN,TOTAL 0.3 MG/DL (0.2-1.0); BLOOD UREA NITROGEN 23 mg/dL (7-18); CALCIUM 8.8 MG/DL (8.5-10.1); CARBON DIOXIDE 25 MMOL/L (21-32); CHLORIDE 105 MMOL/L (98-107); CREATINE KINASE 350 U/L (26-308); CREATININE 1.4 MG/DL (0.55-1.30); PHOSPHORUS 2.9 MG/DL (2.5-4.9); POTASSIUM 4.6 MMOL/L (3.5-5.1); SODIUM 138 MMOL/L (136-145)
[2019-06-21 12:00] VITALS: BP 105/78
--- NOTE | 2019-06-21 12:08 | NUR ---
HOMELESS COORDINATOR HC spoke with patient and patient is alert and oriented. Patient does have a contact number [phone]. Patient states he is not chronically homeless and felt offended when asked by HC. Patient states he was at [facility] for a months before his mental health worker found placement for him. Patient states he is currently living at [facility] and the address listed on facesheet is correct. Patient states he will return home upon discharge. Patient refuse to give PCP information or allow HC to make follow-up appointment. Patient states he doesn't want to be in the system and will make his own appointments. Patient continues to require medical intervention. Will continue to monitor and assist as needed.
[2019-06-21 16:00] VITALS: BP 116/70
--- NOTE | 2019-06-21 19:06 | NUR ---
HAND-OFF: Report given to Guillermo WILSON.
[2019-06-21 20:00] VITALS: BP 135/79
--- NOTE | 2019-06-21 20:00 | NUR ---
Nursing notes Pt alert oriented x 4 . Pt able to make needs known. Pt on room air.no acute distress noted. Pt ambulate with steady gait .able to void freely. Iv to left hand 24 gauge NS @75ml patent. Pt lying in bed no compliant at this time. Pt bed in lowest position call light in reach . will continue to monitor patient progress throughout the shift
[2019-06-21] MEDS: Tamsulosin 0.4mg cap ORAL SCH (20:55)
[2019-06-22] VITALS: BP 134/77
[2019-06-22] MEDS: DiphenhydrAMINE 50mg/ml Inj IVP PRN ×4 (02:00→21:22)
--- NOTE | 2019-06-22 03:15 | Progress Note ---
DATE: 06/21/2019 SUBJECTIVE: The patient is sitting on bed. Continues to be demanding. Poor insight. The patient is MENTAL STATUS EXAMINATION: The patient is alert and oriented x4. Mood is irritable. Affect is expansive. Thought process is concrete. Thought content, no suicidal or homicidal ideation. Memory is impaired. ASSESSMENT: 1. Bipolar disorder. 2. Cluster B personality. PLAN: 1. We will continue the Seroquel. 2. We will continue to follow and readjust the medications. Angie Hadley M.D. DR: MARA JOB#: [id number] CC: TERE
[2019-06-22 04:31] VITALS: BP 106/60
[2019-06-22 06:31] LABS: EOSINOPHILS % (AUTO) 5.7 % (0.0-3.0); HEMATOCRIT 30.3 % (42.0-52.0); HEMOGLOBIN 10.2 G/DL (14.2-18.0); LYMPHOCYTES % (AUTO) 34.6 % (20.0-45.0); MEAN CORPUSCULAR VOLUME 99 FL (80-99); MONOCYTES % (AUTO) 9.7 % (1.0-10.0); PLATELET COUNT 278 K/UL (150-450); RED BLOOD COUNT 3.06 M/UL (4.70-6.10); RED CELL DISTRIBUTION WIDTH 12.2 % (11.6-14.8); WHITE BLOOD COUNT 6.3 K/UL (4.8-10.8)
[2019-06-22 06:40] LABS: ANION GAP 9 mmol/L (5-15); BLOOD UREA NITROGEN 14 mg/dL (7-18); CALCIUM 8.7 MG/DL (8.5-10.1); CARBON DIOXIDE 26 MMOL/L (21-32); CHLORIDE 106 MMOL/L (98-107); POTASSIUM 4.6 MMOL/L (3.5-5.1); SODIUM 140 MMOL/L (136-145)
--- NOTE | 2019-06-22 07:22 | NUR ---
HAND-OFF: Report given to STEVE Puente. Patient awake and Vs stable.
--- NOTE | 2019-06-22 07:24 | NUR ---
NURSE NOTES: Pt in hallway walking with IV pole. Per outgoing nurse pt has requested , pain medication on exact intervals of when the prn is available. Pt Currently standing in doorway, requesting to speak to charge nurse. Current plan will be followed to include , pain management and bx. Bx can be easily annoyed, requires tremendous amount of time to console and encourage. BX known to underwriter.
[2019-06-22] MEDS: Mesalamine 400mg cap ORAL SCH ×3 (07:59→17:33)
[2019-06-22] MEDS: BuPROPion SR 150mg tab ORAL SCH ×2 (07:59→17:32)
[2019-06-22] MEDS: Montelukast 10mg tablet ORAL SCH (07:59)
[2019-06-22 08:00] VITALS: BP 160/90
--- NOTE | 2019-06-22 09:47 | NUR ---
NURSE NOTES: Lab phoned to report pt for VRE, Dr Hicks phoned awaiting return phone call. Charge Nurse made aware possible transfer to another unit
--- NOTE | 2019-06-22 11:56 | GI Progress Note ---
Assessment/Plan Problems: (1) Psychiatric disorder ICD Codes: F99 - Mental disorder, not otherwise specified SNOMED: 97211468 (2) Crohns disease ICD Codes: K50.90 - Crohn's disease, unspecified, without complications SNOMED: 64802626 (3) Substance abuse ICD Codes: F19.10 - Other psychoactive substance abuse, uncomplicated SNOMED: 72693123 (4) C. difficile colitis ICD Codes: A04.72 - Enterocolitis due to Clostridium difficile, not specified as recurrent SNOMED: 737547308 (5) Intractable diarrhea ICD Codes: R19.7 - Diarrhea, unspecified SNOMED: 950257687 Status: stable, unchanged Status Narrative Discussed with Dr. Weller. Assessment/Plan neg stool ob neg stool for C.diff No plans for any GI procedures at this time, nothing to suggest Crohn's flare. Symptomatic treatment Advance diet as tolerated abx per *ID for UTI add mesalamine pain control fu Psych The patient was seen and examined at bedside and all new and available data was reviewed in the patients chart. I agree with the above findings, impression and plan. (Patient seen earlier today. Signature stamp does not reflect patient encounter time.). - Tylor Weller MD Subjective Gastrointestinal/Abdominal: Reports: abdominal pain Objective Last 24 Hour Vital Signs Date Time Temp Pulse Resp B/P (MAP) Pulse Ox O2 Delivery O2 Flow Rate FiO2 06/22/19 09:00 Room Air 06/22/19 08:00 97.8 80 18 160/90 (113) 98 06/22/19 04:31 98.2 87 20 106/60 (75) 06/22/19 00:00 98.2 87 19 134/77 (96) 06/21/19 21:00 Room Air 06/21/19 20:00 98.7 95 20 135/79 (97) 95 06/21/19 16:00 97.5 96 20 116/70 (85) 97 06/21/19 12:00 97.8 99 20 105/78 (87) 96 Intake and Output 06/21/19 06/22/19 18:59 06:59 Intake Total 1260 ml 900 ml Balance 1260 ml 900 ml Intake Oral 960 ml 900 ml IV Total 300 ml # Voids 2 3 # Bowel Movements 2 Laboratory Tests Test 06/22/19 05:00 White Blood Count 6.3 K/UL (4.8-10.8) Red Blood Count 3.06 M/UL (4.70-6.10) L Hemoglobin 10.2 G/DL (14.2-18.0) L Hematocrit 30.3 % (42.0-52.0) L Mean Corpuscular Volume 99 FL (80-99) Mean Corpuscular Hemoglobin 33.3 PG (27.0-31.0) H Mean Corpuscular Hemoglobin Concent 33.7 G/DL (32.0-36.0) Red Cell Distribution Width 12.2 % (11.6-14.8) Platelet Count 278 K/UL (150-450) Mean Platelet Volume 6.0 FL (6.5-10.1) L Neutrophils (%) (Auto) 49.0 % (45.0-75.0) Lymphocytes (%) (Auto) 34.6 % (20.0-45.0) Monocytes (%) (Auto) 9.7 % (1.0-10.0) Eosinophils (%) (Auto) 5.7 % (0.0-3.0) H Basophils (%) (Auto) 1.0 % (0.0-2.0) Sodium Level 140 MMOL/L (136-145) Potassium Level 4.6 MMOL/L (3.5-5.1) Chloride Level 106 MMOL/L (98-107) Carbon Dioxide Level 26 MMOL/L (21-32) Anion Gap 9 mmol/L (5-15) Blood Urea Nitrogen 14 mg/dL (7-18) Creatinine 1.0 MG/DL (0.55-1.30) Estimat Glomerular Filtration Rate > 60 mL/min (>60) Glucose Level 90 MG/DL (74-106) Calcium Level 8.7 MG/DL (8.5-10.1) Height (Feet): 5 Height (Inches): 10.00 Weight (Pounds): 284 General Appearance: WD/WN, no apparent distress, alert Cardiovascular: normal rate Respiratory/Chest: normal breath sounds, no respiratory distress Abdominal Exam: normal bowel sounds, non tender, soft Extremities: normal range of motion, non-tender Noreen Alvarez MOBILE APPLICATION DEVELOPER Jun 22, 2019 11:56
[2019-06-22 12:00] VITALS: BP 145/90
--- NOTE | 2019-06-22 13:00 | NUR ---
*-*INSURANCE *-* ALL AVAILABLE CLINICALS AND REVIEWS HAVE BEEN FAXED TO: NANDINI JARA/BELL HILTON: SABINA REF# [id number] P: [phone] F: [phone]
--- NOTE | 2019-06-22 13:41 | NUR ---
NURSE NOTES: Dr Hicks here stated he would return to speak to the pt. Pt has possible discharge home, or transfer to another floor. Auto Parts Manager spoke to pt . Pt is positive for VRE, awaiting for Dr to speak to pt
--- NOTE | 2019-06-22 13:50 | NUR ---
NURSE NOTES: Received report from STEVE Steinberg. Pt a/o x 4, ambulating. Denies any pain at this time. Bed in lowest position, call light within reach. Will continue to monitor.
--- NOTE | 2019-06-22 13:50 | NUR ---
HAND-OFF: Report given to Valentín WILSON.
--- NOTE | 2019-06-22 14:00 | General Progress Note ---
Assessment/Plan Problem List: (1) Hearing voices ICD Codes: R44.0 - Auditory hallucinations SNOMED: 002143791 (2) Substance abuse ICD Codes: F19.10 - Other psychoactive substance abuse, uncomplicated SNOMED: 93301173 (3) Crohns disease ICD Codes: K50.90 - Crohn's disease, unspecified, without complications SNOMED: 27522578 (4) Intractable diarrhea ICD Codes: R19.7 - Diarrhea, unspecified SNOMED: 738206157 (5) Renal insufficiency ICD Codes: N28.9 - Disorder of kidney and ureter, unspecified SNOMED: 550457011, 876857611 (6) UTI (urinary tract infection) ICD Codes: N39.0 - Urinary tract infection, site not specified SNOMED: 68992486 (7) Renal failure (ARF), acute on chronic ICD Codes: N17.9 - Acute kidney failure, unspecified; N18.9 - Chronic kidney disease, unspecified SNOMED: 769323523 (8) Psychiatric disorder ICD Codes: F99 - Mental disorder, not otherwise specified SNOMED: 21525739 Status: stable, progressing Assessment/Plan: pt diet psyc tx cbc bmp am dc plan Subjective Allergies: Coded Allergies: CODEINE (Unverified Allergy, Intermediate, 04/23/19) HALOPERIDOL (Verified Allergy, Unknown, 06/18/19) MORPHINE (Verified Allergy, Unknown, 04/29/16) PROCHLORPERAZINE (Verified Allergy, Unknown, 04/29/16) All Systems: reviewed and negative except above Subjective sl anxious in room Objective Last 24 Hour Vital Signs Date Time Temp Pulse Resp B/P (MAP) Pulse Ox O2 Delivery O2 Flow Rate FiO2 06/22/19 12:00 98.2 100 18 145/90 (108) 06/22/19 09:00 Room Air 06/22/19 08:00 97.8 80 18 160/90 (113) 98 06/22/19 04:31 98.2 87 20 106/60 (75) 06/22/19 00:00 98.2 87 19 134/77 (96) 06/21/19 21:00 Room Air 06/21/19 20:00 98.7 95 20 135/79 (97) 95 06/21/19 16:00 97.5 96 20 116/70 (85) 97 Intake and Output 06/21/19 06/22/19 18:59 06:59 Intake Total 1260 ml 900 ml Balance 1260 ml 900 ml Intake Oral 960 ml 900 ml IV Total 300 ml # Voids 2 3 # Bowel Movements 2 Laboratory Tests 06/22/19 05:00: White Blood Count 6.3, Red Blood Count 3.06L, Hemoglobin 10.2L, Hematocrit 30.3L , Mean Corpuscular Volume 99, Mean Corpuscular Hemoglobin 33.3H, Mean Corpuscular Hemoglobin Concent 33.7, Red Cell Distribution Width 12.2, Platelet Count 278, Mean Platelet Volume 6.0L, Neutrophils (%) (Auto) 49.0, Lymphocytes ( %) (Auto) 34.6, Monocytes (%) (Auto) 9.7, Eosinophils (%) (Auto) 5.7H, Basophils (%) (Auto) 1.0, Sodium Level 140, Potassium Level 4.6, Chloride Level 106, Carbon Dioxide Level 26, Anion Gap 9, Blood Urea Nitrogen 14, Creatinine 1.0, Estimat Glomerular Filtration Rate > 60, Glucose Level 90, Calcium Level 8.7 Height (Feet): 5 Height (Inches): 10.00 Weight (Pounds): 284 General Appearance: lethargic EENT: normal ENT inspection Neck: normal alignment Cardiovascular: normal peripheral pulses, normal rate, regular rhythm Respiratory/Chest: chest wall non-tender, lungs clear, normal breath sounds Extremities: normal inspection Edema: no edema noted Arm (L), no edema noted Arm (R), no edema noted Leg (L), no edema noted Leg (R), no edema noted Pedal (L), no edema noted Pedal (R), no edema noted Generalized Neurologic: responsive, motor weakness Skin: normal pigmentation, warm/dry Young Hicks DO Jun 22, 2019 14:00
--- NOTE | 2019-06-22 17:05 | NUR ---
NURSE NOTES:ayla dowd rn,tucker rn.notified re;pt refused to transfer to re:vre isolation.per assigned rn(prasanna)pt. stated shes going home tomorrow anyway.
[2019-06-22] MEDS ORDERED: SEROQUEL200 MG ORAL (18:49)
[2019-06-22] MEDS ORDERED: LISINOPRIL20 MG ORAL (18:49)
[2019-06-22] MEDS ORDERED: DIPHENOXYLATE-1 EACH PO (18:56)
[2019-06-22] MEDS ORDERED: MAPAP500 M2 PO (18:56)
[2019-06-22] MEDS ORDERED: LORATADINE10 M2 PO (18:56)
[2019-06-22] MEDS ORDERED: APRISO0.375 GM PO (18:56)
[2019-06-22] MEDS ORDERED: CARISOPRODOL350 MG ORAL (18:56)
[2019-06-22] MEDS ORDERED: CLEOCIN T30 ML TP (18:56)
[2019-06-22] MEDS ORDERED: TRETINOIN20 GM TP (18:56)
[2019-06-22] MEDS ORDERED: CORTIZONE-1028 G1 TP (18:59)
[2019-06-22] MEDS ORDERED: FERROUS SULFAT325 MG ORAL (18:59)
[2019-06-22] MEDS ORDERED: HYDROCHLOROTH12.5 M2 ORAL (18:59)
[2019-06-22] MEDS ORDERED: NARCAN4 MG NS (19:02)
[2019-06-22] MEDS ORDERED: POTASSIUM CHLO10 ME3 ORAL (19:02)
[2019-06-22] MEDS ORDERED: CYANOCOBAL1000 MCG/2 IJ (19:02)
[2019-06-22] MEDS ORDERED: CLOTRIMAZOLE15 GM TOPIC (19:02)
[2019-06-22] MEDS ORDERED: PROCTOCREAM-HC30 GM RC (19:02)
--- NOTE | 2019-06-22 19:20 | NUR ---
NURSE NOTES: Report taken from STEVE Laura. Patient is awake and in bed, A&Ox4. Patient aware of isolation, refused to transfer floors. Skin intact. IV site/c/d/i and patent, no fluids running per order. Ambulates on own. D/C order placed, patient discussed with RN about going home tomorrow. Bed in lowest position, call light within reach.
--- NOTE | 2019-06-22 19:41 | NUR ---
HAND-OFF: Report given to STEVE Li. Pt is stable.
[2019-06-22 20:00] VITALS: BP 129/77
[2019-06-22] MEDS: Tamsulosin 0.4mg cap ORAL SCH (21:21)
--- NOTE | 2019-06-22 23:15 | NUR ---
NURSE NOTES: Received pt from STEVE Li to continue care. Pt AAO x 4, on room air, ambulatory. IV site intact and patent. Contact precaution maintained. Pain med will be given as scheduled. No acute distress noted at this time. Bed lowest position, locked, alarm on, call light within reach. Will continue to monitor.
--- NOTE | 2019-06-22 23:17 | NUR ---
HAND-OFF: Report given to STEVE Miller. Patient is awake, VS stable. Contact precautions.
[2019-06-23] VITALS: BP 130/72
[2019-06-23] MEDS: DiphenhydrAMINE 50mg/ml Inj IVP PRN ×4 (03:28→22:37)
[2019-06-23 04:00] VITALS: BP 133/99
--- NOTE | 2019-06-23 06:00 | Progress Note ---
DATE: 06/22/2019 SUBJECTIVE: The patient is in bed, continues to have multiple complaints. Mental condition is unchanged since the previous encounter. The patient will be continued on current medication. MENTAL STATUS EXAMINATION: The patient is oriented x4. Mood is irritable. Affect is flat. Thought process, there is a paucity of thought content. Thought content, no suicidal or homicidal ideation. Cognition is intact. ASSESSMENT: 1. The patient is stable. 2. Not an imminent danger to self or others. PLAN: 1. Continue current medication. 2. Discharge when the patient is medically cleared. Angie Hadley M.D. DR: Caitlyn JOB#: [id number] CC:
[2019-06-23 06:54] LABS: ANION GAP 5 mmol/L (5-15); BLOOD UREA NITROGEN 15 mg/dL (7-18); CALCIUM 8.8 MG/DL (8.5-10.1); CARBON DIOXIDE 27 MMOL/L (21-32); CHLORIDE 107 MMOL/L (98-107); CREATININE 1.1 MG/DL (0.55-1.30); POTASSIUM 4.5 MMOL/L (3.5-5.1); SODIUM 139 MMOL/L (136-145)
[2019-06-23 07:04] LABS: BASOPHILS % (AUTO) 1.7 % (0.0-2.0); EOSINOPHILS % (AUTO) 6.1 % (0.0-3.0); HEMATOCRIT 31.1 % (42.0-52.0); HEMOGLOBIN 10.2 G/DL (14.2-18.0); LYMPHOCYTES % (AUTO) 29.6 % (20.0-45.0); MEAN CORPUSCULAR VOLUME 99 FL (80-99); MONOCYTES % (AUTO) 10.3 % (1.0-10.0); NEUTROPHILS % (AUTO) 52.3 % (45.0-75.0); PLATELET COUNT 229 K/UL (150-450); RED BLOOD COUNT 3.14 M/UL (4.70-6.10); RED CELL DISTRIBUTION WIDTH 12.6 % (11.6-14.8); WHITE BLOOD COUNT 6.3 K/UL (4.8-10.8)
--- NOTE | 2019-06-23 07:33 | NUR ---
HAND-OFF: Report given to STEVE Puente.
[2019-06-23] MEDS: BuPROPion SR 150mg tab ORAL SCH ×2 (07:57→18:59)
[2019-06-23] MEDS: Montelukast 10mg tablet ORAL SCH (07:57)
[2019-06-23] MEDS: Mesalamine 400mg cap ORAL SCH ×3 (07:57→18:59)
[2019-06-23 08:00] VITALS: BP 161/84
--- NOTE | 2019-06-23 09:00 | General Progress Note ---
Assessment/Plan Problem List: (1) Hearing voices ICD Codes: R44.0 - Auditory hallucinations SNOMED: 414467470 (2) Substance abuse ICD Codes: F19.10 - Other psychoactive substance abuse, uncomplicated SNOMED: 89044898 (3) Crohns disease ICD Codes: K50.90 - Crohn's disease, unspecified, without complications SNOMED: 70601660 (4) Intractable diarrhea ICD Codes: R19.7 - Diarrhea, unspecified SNOMED: 418242875 (5) Renal insufficiency ICD Codes: N28.9 - Disorder of kidney and ureter, unspecified SNOMED: 849774991, 876380365 (6) UTI (urinary tract infection) ICD Codes: N39.0 - Urinary tract infection, site not specified SNOMED: 46101433 (7) Renal failure (ARF), acute on chronic ICD Codes: N17.9 - Acute kidney failure, unspecified; N18.9 - Chronic kidney disease, unspecified SNOMED: 110379294 (8) Psychiatric disorder ICD Codes: F99 - Mental disorder, not otherwise specified SNOMED: 51946150 Status: stable, progressing Assessment/Plan: pt diet psyc tx cbc bmp am dc if clear Subjective Constitutional: Reports: weakness Allergies: Coded Allergies: CODEINE (Unverified Allergy, Intermediate, 04/23/19) HALOPERIDOL (Verified Allergy, Unknown, 06/18/19) MORPHINE (Verified Allergy, Unknown, 04/29/16) PROCHLORPERAZINE (Verified Allergy, Unknown, 04/29/16) All Systems: reviewed and negative except above Subjective sl anxious in room Objective Last 24 Hour Vital Signs Date Time Temp Pulse Resp B/P (MAP) Pulse Ox O2 Delivery O2 Flow Rate FiO2 06/23/19 08:00 97.5 85 18 161/84 (109) 06/23/19 04:00 97.8 90 18 133/99 (110) 06/23/19 00:00 98.3 85 18 130/72 (91) 06/22/19 21:00 Room Air 06/22/19 20:00 97.7 100 17 129/77 (94) 06/22/19 12:00 98.2 100 18 145/90 (108) 06/22/19 09:00 Room Air Intake and Output 06/22/19 06/23/19 19:00 07:00 Intake Total 800 ml 800 ml Balance 800 ml 800 ml Intake Oral 800 ml 800 ml # Voids 3 6 Laboratory Tests 06/23/19 06:10: White Blood Count 6.3, Red Blood Count 3.14L, Hemoglobin 10.2L, Hematocrit 31.1L , Mean Corpuscular Volume 99, Mean Corpuscular Hemoglobin 32.4H, Mean Corpuscular Hemoglobin Concent 32.7, Red Cell Distribution Width 12.6, Platelet Count 229, Mean Platelet Volume 5.8L, Neutrophils (%) (Auto) 52.3, Lymphocytes ( %) (Auto) 29.6, Monocytes (%) (Auto) 10.3H, Eosinophils (%) (Auto) 6.1H, Basophils (%) (Auto) 1.7, Sodium Level 139, Potassium Level 4.5, Chloride Level 107, Carbon Dioxide Level 27, Anion Gap 5, Blood Urea Nitrogen 15, Creatinine 1.1, Estimat Glomerular Filtration Rate > 60, Glucose Level 102, Calcium Level 8.8 Height (Feet): 5 Height (Inches): 10.00 Weight (Pounds): 284 General Appearance: lethargic EENT: normal ENT inspection Neck: normal alignment Cardiovascular: normal peripheral pulses, normal rate, regular rhythm Respiratory/Chest: chest wall non-tender, lungs clear, normal breath sounds Abdomen: normal bowel sounds, non tender, soft Extremities: normal inspection Edema: no edema noted Arm (L), no edema noted Arm (R), no edema noted Leg (L), no edema noted Leg (R), no edema noted Pedal (L), no edema noted Pedal (R), no edema noted Generalized Neurologic: responsive, motor weakness Skin: normal pigmentation, warm/dry Young Hicks DO Jun 23, 2019 09:00
--- NOTE | 2019-06-23 09:41 | NUR ---
Social Work Patient requesting to speak with SW; this SW met with patient who wanted to speak with his Flight Engineer Helicopter (mental health outpatient) to confirm he can return to his transitional housing. This Sw provided contact for Flight Engineer Helicopter, Mckenna, while also informed patient she has spoken with Marcos Sullivan to confirm patient can return to his transitional housing (will need a taxi voucher to his home upon discharge from here). No other needs or concerns at this time.
[2019-06-23 12:00] VITALS: BP 148/82
--- NOTE | 2019-06-23 12:53 | GI Progress Note ---
Assessment/Plan Problems: (1) Psychiatric disorder ICD Codes: F99 - Mental disorder, not otherwise specified SNOMED: 10941113 (2) Crohns disease ICD Codes: K50.90 - Crohn's disease, unspecified, without complications SNOMED: 81015244 (3) Substance abuse ICD Codes: F19.10 - Other psychoactive substance abuse, uncomplicated SNOMED: 02213710 (4) C. difficile colitis ICD Codes: A04.72 - Enterocolitis due to Clostridium difficile, not specified as recurrent SNOMED: 992379050 (5) Intractable diarrhea ICD Codes: R19.7 - Diarrhea, unspecified SNOMED: 205857992 Status: unchanged Status Narrative Discussed with Dr. Weller Assessment/Plan neg stool ob neg stool for C.diff No plans for any GI procedures at this time, nothing to suggest Crohn's flare. Symptomatic treatment Advance diet as tolerated abx per *ID for UTI mesalamine pain control fu Psych The patient was seen and examined at bedside and all new and available data was reviewed in the patients chart. I agree with the above findings, impression and plan. (Patient seen earlier today. Signature stamp does not reflect patient encounter time.). - Tylor Weller MD Subjective Subjective Generalized pain Denies any nausea vomiting Objective Last 24 Hour Vital Signs Date Time Temp Pulse Resp B/P (MAP) Pulse Ox O2 Delivery O2 Flow Rate FiO2 06/23/19 08:00 97.5 85 18 161/84 (109) 06/23/19 04:00 97.8 90 18 133/99 (110) 06/23/19 00:00 98.3 85 18 130/72 (91) 06/22/19 21:00 Room Air 06/22/19 20:00 97.7 100 17 129/77 (94) Intake and Output 06/22/19 06/23/19 18:59 06:59 Intake Total 800 ml 800 ml Balance 800 ml 800 ml Intake Oral 800 ml 800 ml # Voids 3 6 Laboratory Tests Test 06/23/19 06:10 White Blood Count 6.3 K/UL (4.8-10.8) Red Blood Count 3.14 M/UL (4.70-6.10) L Hemoglobin 10.2 G/DL (14.2-18.0) L Hematocrit 31.1 % (42.0-52.0) L Mean Corpuscular Volume 99 FL (80-99) Mean Corpuscular Hemoglobin 32.4 PG (27.0-31.0) H Mean Corpuscular Hemoglobin Concent 32.7 G/DL (32.0-36.0) Red Cell Distribution Width 12.6 % (11.6-14.8) Platelet Count 229 K/UL (150-450) Mean Platelet Volume 5.8 FL (6.5-10.1) L Neutrophils (%) (Auto) 52.3 % (45.0-75.0) Lymphocytes (%) (Auto) 29.6 % (20.0-45.0) Monocytes (%) (Auto) 10.3 % (1.0-10.0) H Eosinophils (%) (Auto) 6.1 % (0.0-3.0) H Basophils (%) (Auto) 1.7 % (0.0-2.0) Sodium Level 139 MMOL/L (136-145) Potassium Level 4.5 MMOL/L (3.5-5.1) Chloride Level 107 MMOL/L (98-107) Carbon Dioxide Level 27 MMOL/L (21-32) Anion Gap 5 mmol/L (5-15) Blood Urea Nitrogen 15 mg/dL (7-18) Creatinine 1.1 MG/DL (0.55-1.30) Estimat Glomerular Filtration Rate > 60 mL/min (>60) Glucose Level 102 MG/DL (74-106) Calcium Level 8.8 MG/DL (8.5-10.1) Height (Feet): 5 Height (Inches): 10.00 Weight (Pounds): 284 General Appearance: WD/WN, no apparent distress, alert Cardiovascular: normal rate Respiratory/Chest: normal breath sounds, no respiratory distress Abdominal Exam: normal bowel sounds, non tender, soft Extremities: normal range of motion, non-tender Noreen Alvarez NP Jun 23, 2019 12:53
--- NOTE | 2019-06-23 15:37 | NUR ---
NURSE NOTES: Dr Hicks here to see pt earlier in shift clarification made in regards to discharge orders. Discharge is on hold Per Dr Bowman Call Timur for ID and Yesenia saunders pt complaints of hematuria
--- NOTE | 2019-06-23 15:38 | NUR ---
NURSE NOTES: Dr Hicks wants the pt cleared by both for discharge
[2019-06-23 16:00] VITALS: BP 122/75
--- NOTE | 2019-06-23 17:12 | Infectious Diseases Prog Note ---
Assessment/Plan Assessment/Plan [facility] # [id number] Subjective Allergies: Coded Allergies: CODEINE (Unverified Allergy, Intermediate, 04/23/19) HALOPERIDOL (Verified Allergy, Unknown, 06/18/19) MORPHINE (Verified Allergy, Unknown, 04/29/16) PROCHLORPERAZINE (Verified Allergy, Unknown, 04/29/16) Objective Vital Signs Last 24 Hour Vital Signs Date Time Temp Pulse Resp B/P (MAP) Pulse Ox O2 Delivery O2 Flow Rate FiO2 06/23/19 12:00 98.2 80 16 148/82 (104) 98 06/23/19 09:00 Room Air 06/23/19 08:00 97.5 85 18 161/84 (109) 06/23/19 04:00 97.8 90 18 133/99 (110) 06/23/19 00:00 98.3 85 18 130/72 (91) 06/22/19 21:00 Room Air 06/22/19 20:00 97.7 100 17 129/77 (94) Height (Feet): 5 Height (Inches): 10.00 Weight (Pounds): 284 Laboratory Tests Test 06/23/19 06:10 White Blood Count 6.3 K/UL (4.8-10.8) Red Blood Count 3.14 M/UL (4.70-6.10) L Hemoglobin 10.2 G/DL (14.2-18.0) L Hematocrit 31.1 % (42.0-52.0) L Mean Corpuscular Volume 99 FL (80-99) Mean Corpuscular Hemoglobin 32.4 PG (27.0-31.0) H Mean Corpuscular Hemoglobin Concent 32.7 G/DL (32.0-36.0) Red Cell Distribution Width 12.6 % (11.6-14.8) Platelet Count 229 K/UL (150-450) Mean Platelet Volume 5.8 FL (6.5-10.1) L Neutrophils (%) (Auto) 52.3 % (45.0-75.0) Lymphocytes (%) (Auto) 29.6 % (20.0-45.0) Monocytes (%) (Auto) 10.3 % (1.0-10.0) H Eosinophils (%) (Auto) 6.1 % (0.0-3.0) H Basophils (%) (Auto) 1.7 % (0.0-2.0) Sodium Level 139 MMOL/L (136-145) Potassium Level 4.5 MMOL/L (3.5-5.1) Chloride Level 107 MMOL/L (98-107) Carbon Dioxide Level 27 MMOL/L (21-32) Anion Gap 5 mmol/L (5-15) Blood Urea Nitrogen 15 mg/dL (7-18) Creatinine 1.1 MG/DL (0.55-1.30) Estimat Glomerular Filtration Rate > 60 mL/min (>60) Glucose Level 102 MG/DL (74-106) Calcium Level 8.8 MG/DL (8.5-10.1) Current Medications Medications (Trade) Dose Ordered Sig/Kalani Route PRN Reason Start Time Stop Time Status Last Admin Dose Admin Aripiprazole (Abilify) 5 mg DAILY ORAL 06/19/19 09:00 07/19/19 08:59 06/23/19 07:57 Bupropion HCl (Wellbutrin SR) 150 mg BID ORAL 06/19/19 09:00 07/19/19 08:59 06/23/19 07:57 Diphenhydramine HCl (Benadryl) 25 mg Q6H PRN IVP Itching 06/18/19 23:00 07/18/19 22:59 06/23/19 16:27 Hydromorphone HCl (Dilaudid) 2 mg Q3H PRN IVP For Pain 06/19/19 01:45 06/26/19 01:44 06/23/19 16:27 Mesalamine (Asacol) 800 mg THREE TIMES A DAY ORAL 06/20/19 09:00 07/20/19 08:59 06/23/19 12:44 Montelukast Sodium (Singulair) 10 mg DAILY ORAL 06/19/19 09:00 07/19/19 08:59 06/23/19 07:57 Ondansetron HCl (Zofran) 4 mg Q6H PRN IVP Nausea & Vomiting 06/19/19 01:45 07/19/19 01:44 06/20/19 11:04 Pantoprazole (Protonix) 40 mg DAILY ORAL 06/21/19 09:00 07/21/19 08:59 06/23/19 07:57 Quetiapine Fumarate (SEROquel) 100 mg DAILY ORAL 06/19/19 09:00 07/19/19 08:59 06/23/19 07:57 Tamsulosin HCl (Flomax) 0.4 mg BEDTIME ORAL 06/20/19 21:00 07/20/19 20:59 06/22/19 21:21 Thomas Ding MD Jun 23, 2019 17:12
[2019-06-23] MEDS ORDERED: cefTRIAXone 1 GM in D5W 55 ML IVPB SCH (17:15)
--- NOTE | 2019-06-23 18:30 | Consultation ---
DATE OF CONSULTATION: 06/23/2019 UROLOGY CONSULTATION CONSULTING PHYSICIAN: Kel Goff M.D. ATTENDING/REFERRING PHYSICIAN: Young Hicks D.O. CHIEF COMPLAINT/HISTORY OF PRESENT ILLNESS: I was asked by Dr. Hicks to evaluate this 49-year-old patient regarding history of microhematuria. Briefly, the patient has a history of hearing voices and presented to the hospital with some abdominal pain and diarrhea. The patient was noted to have evidence of microhematuria. Given the above, I was asked to evaluate the patient. PAST MEDICAL HISTORY: 1. Renal insufficiency. 2. Transgender identification. 3. Schizophrenia. 4. Crohn disease. 5. Auditory hallucinations. 6. Substance abuse. PAST SURGICAL HISTORY: Abdominal surgery, NOS. MEDICATIONS: Please see the chart for current medications administration details. ALLERGIES: Include codeine, Haldol, morphine, and prochlorperazine. SOCIAL HISTORY: Notable for substance abuse with alcohol, marijuana, and cocaine use. The patient also smokes. FAMILY HISTORY: Noncontributory. REVIEW OF SYSTEMS: A 14-system review of systems is unremarkable outside was described above. PHYSICAL EXAMINATION: GENERAL: The patient is a middle-aged patient, awake, alert, and oriented x4, in no obvious distress. HEENT: NC/AT. Oropharynx clear. NECK: Supple. CHEST: Within normal limits. ABDOMEN: Soft, nontender, and nondistended. EXTREMITIES: Warm and well perfused. No cyanosis, clubbing, or edema. BACK: No CVA tenderness to percussion. NEUROLOGIC: Grossly nonfocal. LABORATORY DATA: White blood cell count 6.3, hematocrit 31.1, and platelets 229,000. Sodium 139, potassium 4.5, chloride 107, bicarbonate 27, BUN 15, creatinine 1.1. Glucose 102. Calcium 8.8. LFTs within normal limits. Urinalysis, specific gravity 1.010, pH 5.0. Dip test is notable for 1+ protein, 4+ occult blood, and 3+ leukocyte esterase. Microanalysis with 5 to 10 red and 10 to 15 white blood cells per high-power field, and many bacteria seen. Urine culture with E. coli sensitive to ceftriaxone. C. diff is negative. VRE culture is positive for 1+ VRE growth. DIAGNOSTIC IMAGING: None. ASSESSMENT AND PLAN: In summary, the patient is a 49-year-old patient with a history of abdominal pain and diarrhea. Apparently, the patient also suffers from auditory hallucinations. He was noted to have microhematuria on urinalysis. Culture has grown E. coli urinary tract infection, but the patient does not appear to be receiving antibiotics for the same. There is no relevant diagnostic imaging. I will start the patient on some ceftriaxone in an effort to treat his urinary tract infection. It is likely that his microhematuria is secondary to the same. 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 There is no history of stones, etc. Once the patient's infection has been treated, a repeat culture should be sent to document eradication of the infection. Thank you for allowing me to participate in the care of this patient. Please do not hesitate to contact me with any questions that you may further have regarding his care. I will see the patient with you as needed. Kel Goff M.D. DR: TANIA JOB#: [id number] CC:
--- NOTE | 2019-06-23 19:30 | Consultation ---
DATE OF CONSULTATION: 06/23/2019 INFECTIOUS DISEASES CONSULTATION CONSULTING PHYSICIAN: Thomas Ding M.D. REFERRING PHYSICIAN: Young Hicks D.O. REASON FOR CONSULTATION: Evaluation of the patient for UTI, hematuria in the setting of GI to fistula, antibiotics management. HISTORY OF PRESENT ILLNESS: The patient is a 49-year-old male, overall poor historian who left the medical facility [facility]. The patient has history of psychiatric disorder, also history of Crohn disease for over 20 years. 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 The patient had extensive workup in the past, has history of hematuria off and on. Now the patient comes to the hospital due to diarrhea and evaluation of Crohn's. Today the patient mentioned having hematuria. In the past, the patient had stool passing to the urine. Infectious consultation has been requested for further evaluation of the patient and antibiotic management. PAST MEDICAL HISTORY: Significant for: 1. History of Crohn disease. 2. History of multiple colon and small bowel surgeries. 3. History of GI/urinary tract fistula. 4. History of hypertension. ALLERGIES: No allergies to antibiotics. FAMILY HISTORY: Not contributing. REVIEW OF SYSTEMS: A 10-point review of systems was done and except what was mentioned above has been negative. SOCIAL HISTORY: The patient is a smoker. MEDICATIONS: The patient currently is off of antibiotics. PHYSICAL EXAMINATION: VITAL SIGNS: Temperature 97.3, blood pressure 148/82, pulse 86, respiratory rate 18. HEENT: No pale conjunctivae. No scleral icterus. NECK: No lymphadenopathy. CHEST: Clear. HEART: S1 and S2. ABDOMEN: Soft. Obese. The patient is complaining of abdominal tenderness EXTREMITIES: No cyanosis. NEUROLOGIC: Awake and alert. LABORATORY AND DIAGNOSTIC DATA: White count 6.3, hemoglobin 10, platelets 229. UA shows 5 to 10 red blood cells, 10 to 15 white blood cells. BUN 15 and creatinine 1.1. ALT, AST, and alkaline phosphatase unremarkable. Urine culture is growing E. coli. ASSESSMENT: 1. Urinary tract infection/hematuria due to GI/ fistula. 2. History of Crohn disease. 3. Diarrhea due to Crohn's, C difficile negative. PLAN: 1. We will start the patient on IV Ancef for coverage of the E. coli urinary tract, add Flagyl for possible in the setting of GI/ fistula. 2. Monitor CBC and BMP. 3. We will send repeat blood and urine culture. 4. Monitor patient's clinical course and labs. Based on those, we will do further recommendation. Thank you, Dr. Young Hicks for allowing me to participate in the care of this patient. I will follow the patient during this hospitalization. Thomas Ding M.D. DR: Didi JOB#: [id number] CC:
--- NOTE | 2019-06-23 19:40 | NUR ---
NURSE NOTES: Pt received in sitting at the side of the bed, asking for pain medication, I admi Addendum: 06/23/19 at 1942 by MILEY FONG RN NURSE NOTES: I administered pain medication and explained the next time it is due and pt said ok. No signs of distress, able to make needs known, call light within reach, IV antibiotics due and PO Antibiotic also, will collect urine and will continue to monitor.
--- NOTE | 2019-06-23 19:59 | NUR ---
CASE MANAGEMENT: REVIEW SI: RENAL INSUFFICIENT T 97.5 HR 85 RR 18 BP 161/84 SAT 98% ROOM AIR H/H 10.2/31.1 IS: ROCEPHIN 1GM IV ABILIFY PO WELLBUTRIN PO SEROQUEL PO DILAUDID IV MED/SURG STATUS DCP: PATIENT REPORT HOMELESSNESS
[2019-06-23 20:00] VITALS: BP 117/69
--- NOTE | 2019-06-23 20:19 | NUR ---
NURSE NOTES: Pt had a display of disruptive bx all shift. Requiring redirection repeatedly. Pt walked to 310 yelling in door asking for pain medication while music writer was monitoring another pt in serious condition. Pt stated " It is not my problem " Pt also repeatedly yelling to go outside in smoke. " it is not my problem that you guys are giving meds, and putting people before me, I have a right to go outside, this aint nursing home. " Pt demeanor becomes passive after pain medication is given . Very talkative very difficult to distract pt attention seeking bx. Remains on this unit has possible transfer to another floor 2 to VRE to rectum results .
--- NOTE | 2019-06-23 20:26 | NUR ---
NURSE NOTES: Pt displayed disruptive bx all shift. Yelling in hallway. Attention seeking bx. Does not respect care of others yelling outside of adjacent room door while development writer was giving care" I do not care what she needs, I need my my pain medication. Asking for pain medication in exact intervals. Pt discharge reaming pending. Dr Goff and Dr Ding seen pt. Pt bx fluctuates through out day requiring a tremendous amount of time to render care to 2 to complaints dietary, Dr orders, medication regimen, past diagnosis. Oncoming nurse made aware of pt bx, and request of pain medication at exact interval. Pt has no facial grimace of pain, very relaxed , and immediately after receiving pain medication , pt becomes talkative, and becomes upset when attempt are made to exit room. " I am important too, this is a stereotype having a NIGGA take care of a NIGGA , I know how to act around white people. Pt attempted to be redirected multiple times. Charge Nurse is aware. made aware of bx
--- NOTE | 2019-06-23 20:34 | NUR ---
HAND-OFF: Report given to Chato WILSON.
[2019-06-23] MEDS: Tamsulosin 0.4mg cap ORAL SCH (20:49)
[2019-06-23] MEDS: metroNIDAZOLE 500mg tab ORAL SCH (22:36)
[2019-06-23] MEDS: ceFAZolin sod 1 GM in NS 55 ML IVP SCH (23:14)
[2019-06-24] VITALS: BP 127/76
--- NOTE | 2019-06-24 02:15 | NUR ---
HAND-OFF: Report given to STEEV Bryson.
--- NOTE | 2019-06-24 02:20 | NUR ---
NURSE NOTES: Receive a report from STEVE Roldan. Pt is asleep at this time. Will continue to monitor.
[2019-06-24 04:30] VITALS: BP 147/81
[2019-06-24] MEDS: DiphenhydrAMINE 50mg/ml Inj IVP PRN ×4 (04:37→22:35)
--- NOTE | 2019-06-24 04:37 | NUR ---
NURSE NOTES: Pain medication and Benadryl given as ordered. Pt states pain level 10/10 on abdomen and left thigh and itching sensation. Refuses to put ice bag to relieve itching. Will continue to monitor after pain medication. Pt forgets to collect urine. Reinforce to collect urine next time. Pt verbalizes understanding. Will continue to monitor.
[2019-06-24] MEDS: metroNIDAZOLE 500mg tab ORAL SCH ×3 (06:05→22:35)
[2019-06-24] MEDS: ceFAZolin sod 1 GM in NS 55 ML IVP SCH ×3 (06:05→22:35)
[2019-06-24 06:59] LABS: ANION GAP 8 mmol/L (5-15); BLOOD UREA NITROGEN 15 mg/dL (7-18); CALCIUM 8.9 MG/DL (8.5-10.1); CARBON DIOXIDE 23 MMOL/L (21-32); CHLORIDE 107 MMOL/L (98-107); CREATININE 1.1 MG/DL (0.55-1.30); POTASSIUM 4.2 MMOL/L (3.5-5.1); SODIUM 138 MMOL/L (136-145)
--- NOTE | 2019-06-24 08:00 | NUR ---
HAND-OFF: Report given to STEVE Johnson.
[2019-06-24 08:44] VITALS: BP 121/74
[2019-06-24] MEDS: Montelukast 10mg tablet ORAL SCH (08:56)
[2019-06-24] MEDS: Mesalamine 400mg cap ORAL SCH ×3 (08:56→17:23)
[2019-06-24] MEDS: BuPROPion SR 150mg tab ORAL SCH ×2 (08:56→17:23)
--- NOTE | 2019-06-24 10:11 | NUR ---
NURSE NOTES: during shift change patient alert oriented with out no distress call light with in reach bed on low position will continue to monitor.
--- NOTE | 2019-06-24 10:56 | General Progress Note ---
Assessment/Plan Problem List: (1) Hearing voices ICD Codes: R44.0 - Auditory hallucinations SNOMED: 233710753 (2) Substance abuse ICD Codes: F19.10 - Other psychoactive substance abuse, uncomplicated SNOMED: 47794734 (3) Crohns disease ICD Codes: K50.90 - Crohn's disease, unspecified, without complications SNOMED: 27773479 (4) Intractable diarrhea ICD Codes: R19.7 - Diarrhea, unspecified SNOMED: 635535085 (5) Renal insufficiency ICD Codes: N28.9 - Disorder of kidney and ureter, unspecified SNOMED: 150560459, 213169412 (6) UTI (urinary tract infection) ICD Codes: N39.0 - Urinary tract infection, site not specified SNOMED: 53749359 (7) Renal failure (ARF), acute on chronic ICD Codes: N17.9 - Acute kidney failure, unspecified; N18.9 - Chronic kidney disease, unspecified SNOMED: 455780678 (8) Psychiatric disorder ICD Codes: F99 - Mental disorder, not otherwise specified SNOMED: 42363416 Status: stable, progressing Assessment/Plan: pt diet psyc tx cbc bmp am dc if clear Subjective Constitutional: Reports: weakness Allergies: Coded Allergies: CODEINE (Unverified Allergy, Intermediate, 04/23/19) HALOPERIDOL (Verified Allergy, Unknown, 06/18/19) MORPHINE (Verified Allergy, Unknown, 04/29/16) PROCHLORPERAZINE (Verified Allergy, Unknown, 04/29/16) All Systems: reviewed and negative except above Subjective sl anxious in room Objective Last 24 Hour Vital Signs Date Time Temp Pulse Resp B/P (MAP) Pulse Ox O2 Delivery O2 Flow Rate FiO2 06/24/19 08:47 97.5 06/24/19 08:44 97.5 96 17 121/74 (90) 97 06/24/19 04:30 98.0 97 18 147/81 (103) 97 06/24/19 00:00 97.8 97 18 127/76 (93) 95 06/23/19 21:00 Room Air 06/23/19 20:00 97.5 95 18 117/69 (85) 96 06/23/19 16:00 97.7 88 18 122/75 (91) 97 06/23/19 12:00 98.2 80 16 148/82 (104) 98 Intake and Output 06/23/19 06/24/19 19:00 07:00 Intake Total 830 ml Balance 830 ml Intake Oral 720 ml IV Total 110 ml # Voids 2 Laboratory Tests 06/24/19 05:15: Sodium Level 138, Potassium Level 4.2, Chloride Level 107, Carbon Dioxide Level 23, Anion Gap 8, Blood Urea Nitrogen 15, Creatinine 1.1, Estimat Glomerular Filtration Rate > 60, Glucose Level 98, Calcium Level 8.9 Height (Feet): 5 Height (Inches): 10.00 Weight (Pounds): 284 General Appearance: alert EENT: normal ENT inspection Neck: normal alignment Cardiovascular: normal peripheral pulses, normal rate, regular rhythm Respiratory/Chest: chest wall non-tender, lungs clear, normal breath sounds Abdomen: normal bowel sounds, non tender, soft Extremities: normal inspection Edema: no edema noted Arm (L), no edema noted Arm (R), no edema noted Leg (L), no edema noted Leg (R), no edema noted Pedal (L), no edema noted Pedal (R), no edema noted Generalized Neurologic: responsive, motor weakness Skin: normal pigmentation, warm/dry Young Hicks DO Jun 24, 2019 10:56
[2019-06-24 12:00] VITALS: BP 124/79
[2019-06-24 16:00] VITALS: BP 120/55
--- NOTE | 2019-06-24 16:32 | General Progress Note ---
Assessment/Plan Status: stable, progressing Assessment/Plan: Assessment/Plan Problems: (1) Psychiatric disorder ICD Codes: F99 - Mental disorder, not otherwise specified SNOMED: 71143466 (2) Crohns disease ICD Codes: K50.90 - Crohn's disease, unspecified, without complications SNOMED: 58390341 (3) Substance abuse ICD Codes: F19.10 - Other psychoactive substance abuse, uncomplicated SNOMED: 39068062 (4) C. difficile colitis ICD Codes: A04.72 - Enterocolitis due to Clostridium difficile, not specified as recurrent SNOMED: 978490316 (5) Intractable diarrhea ICD Codes: R19.7 - Diarrhea, unspecified SNOMED: 974926824 Status: unchanged Status Narrative Assessment/Plan neg stool ob neg stool for C.diff No plans for any GI procedures at this time, nothing to suggest Crohn's flare. Symptomatic treatment Advance diet as tolerated abx per *ID for UTI mesalamine pain control fu Psych Subjective Allergies: Coded Allergies: CODEINE (Unverified Allergy, Intermediate, 04/23/19) HALOPERIDOL (Verified Allergy, Unknown, 06/18/19) MORPHINE (Verified Allergy, Unknown, 04/29/16) PROCHLORPERAZINE (Verified Allergy, Unknown, 04/29/16) Subjective above noted comfortable no vomiting Objective Last 24 Hour Vital Signs Date Time Temp Pulse Resp B/P (MAP) Pulse Ox O2 Delivery O2 Flow Rate FiO2 06/24/19 12:00 98.2 68 21 124/79 (94) 97 06/24/19 09:00 Room Air 06/24/19 09:00 Room Air 06/24/19 08:47 97.5 06/24/19 08:44 97.5 96 17 121/74 (90) 97 06/24/19 04:30 98.0 97 18 147/81 (103) 97 06/24/19 00:00 97.8 97 18 127/76 (93) 95 06/23/19 21:00 Room Air 06/23/19 20:00 97.5 95 18 117/69 (85) 96 Intake and Output 06/23/19 06/24/19 18:59 06:59 Intake Total 830 ml Balance 830 ml Intake Oral 720 ml IV Total 110 ml # Voids 2 Laboratory Tests 06/24/19 05:15: Sodium Level 138, Potassium Level 4.2, Chloride Level 107, Carbon Dioxide Level 23, Anion Gap 8, Blood Urea Nitrogen 15, Creatinine 1.1, Estimat Glomerular Filtration Rate > 60, Glucose Level 98, Calcium Level 8.9 06/24/19 12:00: Urine Eosinophils None seen Height (Feet): 5 Height (Inches): 10.00 Weight (Pounds): 284 Objective Obese AA NCAT supple CTA RRR abd soft ND no edema Mihaela Holden MD Jun 24, 2019 16:32
--- NOTE | 2019-06-24 19:49 | NUR ---
HAND-OFF: Report given to STEVE TRENT.
[2019-06-24 20:00] VITALS: BP 123/65
[2019-06-24] MEDS: Tamsulosin 0.4mg cap ORAL SCH (21:40)
[2019-06-25] VITALS: BP 123/71
[2019-06-25 04:00] VITALS: BP 141/82
[2019-06-25] MEDS: DiphenhydrAMINE 50mg/ml Inj IVP PRN ×4 (04:38→23:45)
[2019-06-25] MEDS: ceFAZolin sod 1 GM in NS 55 ML IVP SCH ×4 (05:17→22:00)
[2019-06-25] MEDS: metroNIDAZOLE 500mg tab ORAL SCH ×3 (07:00→21:26)
--- NOTE | 2019-06-25 07:10 | NUR ---
NURSE NOTES: Pt refused flagyl, explained the benefits of the medication and pt still refused.
--- NOTE | 2019-06-25 07:19 | NUR ---
HAND-OFF: Report given to STEVE Bar.
[2019-06-25 08:00] VITALS: BP_SYST 119; BP_SYST 129; BP_DIAS 63; BP_DIAS 87
[2019-06-25] MEDS: Mesalamine 400mg cap ORAL SCH ×3 (09:29→18:54)
[2019-06-25] MEDS: Montelukast 10mg tablet ORAL SCH (09:29)
[2019-06-25] MEDS: BuPROPion SR 150mg tab ORAL SCH ×2 (09:30→18:54)
--- NOTE | 2019-06-25 09:55 | General Progress Note ---
Assessment/Plan Problem List: (1) Hearing voices ICD Codes: R44.0 - Auditory hallucinations SNOMED: 496347873 (2) Substance abuse ICD Codes: F19.10 - Other psychoactive substance abuse, uncomplicated SNOMED: 96942801 (3) Crohns disease ICD Codes: K50.90 - Crohn's disease, unspecified, without complications SNOMED: 99368620 (4) Intractable diarrhea ICD Codes: R19.7 - Diarrhea, unspecified SNOMED: 979898363 (5) Renal insufficiency ICD Codes: N28.9 - Disorder of kidney and ureter, unspecified SNOMED: 887181169, 056798089 (6) UTI (urinary tract infection) ICD Codes: N39.0 - Urinary tract infection, site not specified SNOMED: 53767509 (7) Renal failure (ARF), acute on chronic ICD Codes: N17.9 - Acute kidney failure, unspecified; N18.9 - Chronic kidney disease, unspecified SNOMED: 167116833 (8) Psychiatric disorder ICD Codes: F99 - Mental disorder, not otherwise specified SNOMED: 44642293 Status: stable, progressing Assessment/Plan: pt diet psyc tx cbc bmp am dc if clear Subjective Constitutional: Reports: weakness Allergies: Coded Allergies: CODEINE (Unverified Allergy, Intermediate, 04/23/19) FISH CONTAINING PRODUCTS (Verified Allergy, Unknown, 06/25/19) HALOPERIDOL (Verified Allergy, Unknown, 06/18/19) MORPHINE (Verified Allergy, Unknown, 04/29/16) PROCHLORPERAZINE (Verified Allergy, Unknown, 04/29/16) All Systems: reviewed and negative except above Subjective sl anxious in room Objective Last 24 Hour Vital Signs Date Time Temp Pulse Resp B/P (MAP) Pulse Ox O2 Delivery O2 Flow Rate FiO2 06/25/19 08:00 97.9 100 18 129/87 (101) 96 06/25/19 04:00 96.4 102 20 141/82 (101) 96 06/25/19 00:00 98.0 99 18 123/71 (88) 99 06/24/19 21:00 Room Air 06/24/19 20:00 97.5 94 18 123/65 (84) 95 06/24/19 16:00 98.3 74 20 120/55 (76) 97 06/24/19 12:00 98.2 68 21 124/79 (94) 97 Intake and Output 06/24/19 06/25/19 19:00 07:00 Intake Total 2200 ml 1510 ml Balance 2200 ml 1510 ml Intake Oral 2200 ml 1400 ml IV Total 110 ml # Voids 3 # Bowel Movements 1 Laboratory Tests 06/24/19 12:00: Urine Eosinophils None seen Height (Feet): 5 Height (Inches): 10.00 Weight (Pounds): 284 General Appearance: lethargic EENT: normal ENT inspection Neck: normal alignment Cardiovascular: normal peripheral pulses, normal rate, regular rhythm Respiratory/Chest: chest wall non-tender, lungs clear, normal breath sounds Abdomen: normal bowel sounds, non tender, soft Extremities: normal inspection Edema: no edema noted Arm (L), no edema noted Arm (R), no edema noted Leg (L), no edema noted Leg (R), no edema noted Pedal (L), no edema noted Pedal (R), no edema noted Generalized Neurologic: motor weakness Skin: normal pigmentation, warm/dry Young Hicks DO Jun 25, 2019 09:55
--- NOTE | 2019-06-25 10:47 | NUR ---
DISCHARGE PLANNING: NOTE CLEARED BY PSYCH, CLEARED BY NANCY, AND [facility] IS TO MAKE ROUNDS SHORTLY. Addendum: 06/25/19 at 1233 by Carlie Hanson CALL RECEIVED FROM [facility] PAL TO CLEAR AND PROVIDE RX. CHARGE NURSE MADE AWARE
--- NOTE | 2019-06-25 10:54 | NUR ---
CASE MANAGEMENT: REVIEW 06/24/2019 SI: ACUTE KIDNEY FAILURE. T 98.3 HR 74 RR 20 B/P 120/55 SATS 97% ON RA LABS WNL IS:FLOMAX PO QHS WELLBUTRIN PO BID CEFAZOLIN IV Q8H FLAGYL PO Q8H ASACOL PO TID MED/SURG 06/25/2019 SI: ACUTE KIDNEY FAILURE. T 97.9HR 100 RR 18 B/P 129/87 SATS 96% ON RA NO LABS TODAY IS:FLOMAX PO QHS WELLBUTRIN PO BID CEFAZOLIN IV Q8H FLAGYL PO Q8H ASACOL PO TID MED/SURG
[2019-06-25 12:00] VITALS: BP 129/87
--- NOTE | 2019-06-25 12:16 | Infectious Diseases Prog Note ---
Assessment/Plan Assessment/Plan 1. Urinary tract infection/hematuria due to GI/ fistula. 2. History of Crohn disease. 3. Diarrhea due to Crohn's, C difficile negative. PLAN: 1. Continue Keflex and Flagyl for 10 days total ( End date 07/03/19) 2. Monitor CBC and BMP. Thank you, Dr. Young Hicks for allowing me to participate in the care of this patient. I will follow the patient during this hospitalization. Subjective Allergies: Coded Allergies: CODEINE (Unverified Allergy, Intermediate, 04/23/19) FISH CONTAINING PRODUCTS (Verified Allergy, Unknown, 06/25/19) HALOPERIDOL (Verified Allergy, Unknown, 06/18/19) MORPHINE (Verified Allergy, Unknown, 04/29/16) PROCHLORPERAZINE (Verified Allergy, Unknown, 04/29/16) Subjective Afebrile No Leukocytosis Objective Vital Signs Last 24 Hour Vital Signs Date Time Temp Pulse Resp B/P (MAP) Pulse Ox O2 Delivery O2 Flow Rate FiO2 06/25/19 08:00 97.9 100 18 129/87 (101) 96 06/25/19 04:00 96.4 102 20 141/82 (101) 96 06/25/19 00:00 98.0 99 18 123/71 (88) 99 06/24/19 21:00 Room Air 06/24/19 20:00 97.5 94 18 123/65 (84) 95 06/24/19 16:00 98.3 74 20 120/55 (76) 97 Height (Feet): 5 Height (Inches): 10.00 Weight (Pounds): 284 Objective GEN; NAD HEENT: NCAT, MMM, No pale conjunctivae. No scleral icterus. CHEST: CTAB, No W HEART: S1 and S2. RRR ABDOMEN: Soft. Obese. Current Medications Medications (Trade) Dose Ordered Sig/Kalani Route PRN Reason Start Time Stop Time Status Last Admin Dose Admin Aripiprazole (Abilify) 5 mg DAILY ORAL 06/19/19 09:00 07/19/19 08:59 06/25/19 09:29 Bupropion HCl (Wellbutrin SR) 150 mg BID ORAL 06/19/19 09:00 07/19/19 08:59 06/25/19 09:30 Cefazolin Sodium 1 gm/Sodium Chloride 55 ml @ 110 mls/hr Q8HR IVP 06/23/19 22:00 06/30/19 21:59 06/25/19 05:17 Diphenhydramine HCl (Benadryl) 25 mg Q6H PRN IVP Itching 06/18/19 23:00 07/18/19 22:59 06/25/19 11:27 Hydromorphone HCl (Dilaudid) 2 mg Q3H PRN IVP For Pain 06/25/19 13:45 07/02/19 13:44 Mesalamine (Asacol) 800 mg THREE TIMES A DAY ORAL 06/20/19 09:00 07/20/19 08:59 06/25/19 09:29 Metronidazole (Flagyl) 500 mg Q8HR ORAL 06/23/19 22:00 06/30/19 21:59 06/24/19 22:35 Montelukast Sodium (Singulair) 10 mg DAILY ORAL 06/19/19 09:00 07/19/19 08:59 06/25/19 09:29 Ondansetron HCl (Zofran) 4 mg Q6H PRN IVP Nausea & Vomiting 06/19/19 01:45 07/19/19 01:44 06/24/19 14:04 Pantoprazole (Protonix) 40 mg DAILY ORAL 06/21/19 09:00 07/21/19 08:59 06/25/19 09:30 Quetiapine Fumarate (SEROquel) 100 mg DAILY ORAL 06/19/19 09:00 07/19/19 08:59 06/25/19 09:30 Tamsulosin HCl (Flomax) 0.4 mg BEDTIME ORAL 06/20/19 21:00 07/20/19 20:59 06/24/19 21:40 Mayco Cortez MD Jun 25, 2019 12:16
--- NOTE | 2019-06-25 13:44 | NUR ---
RD ASSESSMENT & RECOMMENDATIONS SEE CARE ACTIVITY FOR COMPLETE ASSESSMENT DAILY ESTIMATED NEEDS: Needs based on Obesity, Crohns 15-20 kcal/kg kcals/kg 6227-5601 total kcals 1-1.5 90adj g protein/kg 90-135 g total protein 15-20ml/kcal mL/kg total fluid mLs NUTRITION DIAGNOSIS: Obesity etiology unknown, as evidenced by pt w/ BMI >40, @172% of ideal body weight CURRENT DIET: Regular PO DIET RECOMMENDATIONS: SOFT, LOW FIBER/ LOW RESIDUE diet ADDITIONAL RECOMMENDATIONS: * Standing wt for accurate CBW -> weekly wt monitoring given obesity * Monitor PO tolerance * Lytes and hydration status daily w/ active loose stools
--- NOTE | 2019-06-25 14:45 | NUR ---
NURSE NOTES: Patient refusing blood cultures and lab draws,patient state he will be getting a Picc Line ,labs can be drawn when picc line is in.
--- NOTE | 2019-06-25 14:46 | General Progress Note ---
Assessment/Plan Status: stable, progressing Assessment/Plan: Assessment/Plan Problems: (1) Psychiatric disorder ICD Codes: F99 - Mental disorder, not otherwise specified SNOMED: 09055935 (2) Crohns disease ICD Codes: K50.90 - Crohn's disease, unspecified, without complications SNOMED: 68163299 (3) Substance abuse ICD Codes: F19.10 - Other psychoactive substance abuse, uncomplicated SNOMED: 06870770 (4) C. difficile colitis ICD Codes: A04.72 - Enterocolitis due to Clostridium difficile, not specified as recurrent SNOMED: 802803627 (5) Intractable diarrhea ICD Codes: R19.7 - Diarrhea, unspecified SNOMED: 167206375 Status: unchanged Status Narrative Assessment/Plan neg stool ob neg stool for C.diff No plans for any GI procedures at this time, nothing to suggest Crohn's flare. Symptomatic treatment Advance diet as tolerated abx per *ID for UTI mesalamine pain control fu Psych Subjective Allergies: Coded Allergies: CODEINE (Unverified Allergy, Intermediate, 04/23/19) FISH CONTAINING PRODUCTS (Verified Allergy, Unknown, 06/25/19) HALOPERIDOL (Verified Allergy, Unknown, 06/18/19) MORPHINE (Verified Allergy, Unknown, 04/29/16) PROCHLORPERAZINE (Verified Allergy, Unknown, 04/29/16) Subjective above noted comfortable tolerating solids Objective Last 24 Hour Vital Signs Date Time Temp Pulse Resp B/P (MAP) Pulse Ox O2 Delivery O2 Flow Rate FiO2 06/25/19 12:00 98.6 103 20 129/87 (101) 97 06/25/19 09:00 Room Air 06/25/19 08:00 97.9 100 18 129/87 (101) 96 06/25/19 04:00 96.4 102 20 141/82 (101) 96 06/25/19 00:00 98.0 99 18 123/71 (88) 99 06/24/19 21:00 Room Air 06/24/19 20:00 97.5 94 18 123/65 (84) 95 06/24/19 16:00 98.3 74 20 120/55 (76) 97 Intake and Output 06/24/19 06/25/19 19:00 07:00 Intake Total 2200 ml 1510 ml Balance 2200 ml 1510 ml Intake Oral 2200 ml 1400 ml IV Total 110 ml # Voids 3 # Bowel Movements 1 Height (Feet): 5 Height (Inches): 10.00 Weight (Pounds): 284 Objective Obese AA NCAT supple CTA RRR abd soft ND no edema Mihaela Holden MD Jun 25, 2019 14:46
--- NOTE | 2019-06-25 15:17 | NUR ---
NURSE NOTES: Patient notified of discharge order. Patient reports he cannot get into room where she is staying. Patient reports she needs to pay rent and her mental health piano case maker Mckenna has her check. Patient reports that piano case maker will pick her up tomorrow. Dr. Hicks made aware.
[2019-06-25 16:49] VITALS: BP 114/73
--- NOTE | 2019-06-25 18:58 | NUR ---
NURSE NOTES: Patient sitting up and watching TV,no complaints at this time,call light within reach.
--- NOTE | 2019-06-25 19:20 | NUR ---
HAND-OFF: Report given to Caro WILSON.
--- NOTE | 2019-06-25 19:30 | NUR ---
Ryan BAIRD NOTES: Patient received Dialysis as ordered oncoming nurse updated and will give antibiotic as ordered after Dialysis. Addendum: 07/03/19 at 1353 by ENID ESPINOZA RN RN note not for thispatient
--- NOTE | 2019-06-25 19:41 | NUR ---
NURSE NOTES: Pt received in bed awake alert with no c/o pain, able to make needs known, call light within reach, endorsed pt cleared by psych, ID Nephro, will continue to monitor.
[2019-06-25 20:00] VITALS: BP 118/75
[2019-06-25] MEDS: Tamsulosin 0.4mg cap ORAL SCH (20:44)
[2019-06-26 04:00] VITALS: BP 132/80
[2019-06-26] MEDS: DiphenhydrAMINE 50mg/ml Inj IVP PRN ×3 (05:49→11:31)
[2019-06-26] MEDS: ceFAZolin sod 1 GM in NS 55 ML IVP SCH ×2 (06:00→06:37)
[2019-06-26] MEDS: metroNIDAZOLE 500mg tab ORAL SCH (06:19)
--- NOTE | 2019-06-26 07:22 | NUR ---
HAND-OFF: Report given to STEVE Cerda.
[2019-06-26 08:00] VITALS: BP 130/94
--- NOTE | 2019-06-26 08:06 | NUR ---
NURSE NOTES: Pt complained of pain 11/27. requesting PICC placement for Abx and pain med, and passing clots with stool , left message to dR Hicks, waiting for call back. tolerating diet well, no N/V. call light within reach. fall precaution maintained. will continue to monitor.
[2019-06-26] MEDS: BuPROPion SR 150mg tab ORAL SCH (08:25)
[2019-06-26] MEDS: Montelukast 10mg tablet ORAL SCH (08:27)
[2019-06-26] MEDS: Mesalamine 400mg cap ORAL SCH (08:28)
--- NOTE | 2019-06-26 09:46 | General Progress Note ---
Assessment/Plan Problem List: (1) Hearing voices ICD Codes: R44.0 - Auditory hallucinations SNOMED: 644105679 (2) Substance abuse ICD Codes: F19.10 - Other psychoactive substance abuse, uncomplicated SNOMED: 69773053 (3) Crohns disease ICD Codes: K50.90 - Crohn's disease, unspecified, without complications SNOMED: 59196958 (4) Intractable diarrhea ICD Codes: R19.7 - Diarrhea, unspecified SNOMED: 799729121 (5) Renal insufficiency ICD Codes: N28.9 - Disorder of kidney and ureter, unspecified SNOMED: 957441750, 522687588 (6) UTI (urinary tract infection) ICD Codes: N39.0 - Urinary tract infection, site not specified SNOMED: 00112517 (7) Renal failure (ARF), acute on chronic ICD Codes: N17.9 - Acute kidney failure, unspecified; N18.9 - Chronic kidney disease, unspecified SNOMED: 846224381 (8) Psychiatric disorder ICD Codes: F99 - Mental disorder, not otherwise specified SNOMED: 01435934 Status: stable, progressing Assessment/Plan: pt diet psyc tx cbc bmp am dc if clear Subjective Constitutional: Reports: weakness Allergies: Coded Allergies: CODEINE (Unverified Allergy, Intermediate, 04/23/19) FISH CONTAINING PRODUCTS (Verified Allergy, Unknown, 06/25/19) HALOPERIDOL (Verified Allergy, Unknown, 06/18/19) MORPHINE (Verified Allergy, Unknown, 04/29/16) PROCHLORPERAZINE (Verified Allergy, Unknown, 04/29/16) All Systems: reviewed and negative except above Subjective sl anxious in room Objective Last 24 Hour Vital Signs Date Time Temp Pulse Resp B/P (MAP) Pulse Ox O2 Delivery O2 Flow Rate FiO2 06/26/19 09:03 97.2 06/26/19 09:00 Room Air 06/26/19 08:00 97.2 92 20 130/94 (106) 95 06/26/19 04:00 97.0 92 20 132/80 (97) 100 06/25/19 21:00 Room Air 06/25/19 20:00 97.7 99 20 118/75 (89) 97 06/25/19 16:49 97.9 98 18 114/73 (87) 96 06/25/19 12:00 98.6 103 20 129/87 (101) 97 Intake and Output 06/25/19 06/26/19 19:00 07:00 Intake Total 1600 ml 3180 ml Balance 1600 ml 3180 ml Intake Oral 1600 ml 3180 ml # Voids 4 # Bowel Movements 1 1 Height (Feet): 5 Height (Inches): 10.00 Weight (Pounds): 284 General Appearance: lethargic EENT: normal ENT inspection Neck: normal alignment Cardiovascular: normal peripheral pulses, normal rate, regular rhythm Respiratory/Chest: chest wall non-tender, lungs clear, normal breath sounds Abdomen: normal bowel sounds, non tender, soft Extremities: normal inspection Edema: no edema noted Arm (L), no edema noted Arm (R), no edema noted Leg (L), no edema noted Leg (R), no edema noted Pedal (L), no edema noted Pedal (R), no edema noted Generalized Neurologic: motor weakness Skin: normal pigmentation, warm/dry Young Hicks DO Jun 26, 2019 09:46
--- NOTE | 2019-06-26 10:28 | NUR ---
MD call back, no new order received. will continue to monitor.
--- NOTE | 2019-06-26 10:30 | NUR ---
Received order to DC pt home with prescription Abx. pt stable condition, VS stable. pain reduced. no hallucination/not hearing voices per pt. IV removed. Belongings with pt, no home medication. Prescription and discharge instruction given , verbalize understanding. waiting for her ride. will continue to monitor.
--- NOTE | 2019-06-26 11:17 | GI Progress Note ---
Assessment/Plan Problems: (1) Psychiatric disorder ICD Codes: F99 - Mental disorder, not otherwise specified SNOMED: 85879663 (2) Crohns disease ICD Codes: K50.90 - Crohn's disease, unspecified, without complications SNOMED: 42805963 (3) Substance abuse ICD Codes: F19.10 - Other psychoactive substance abuse, uncomplicated SNOMED: 68149575 (4) C. difficile colitis ICD Codes: A04.72 - Enterocolitis due to Clostridium difficile, not specified as recurrent SNOMED: 396302749 (5) Intractable diarrhea ICD Codes: R19.7 - Diarrhea, unspecified SNOMED: 691055196 Status: stable, unchanged Status Narrative Discussed with Dr. Weller. Assessment/Plan neg stool ob neg stool for C.diff No plans for any GI procedures at this time, nothing to suggest Crohn's flare. Symptomatic treatment Advance diet as tolerated abx per *ID for UTI mesalamine pain control fu Psych The patient was seen and examined at bedside and all new and available data was reviewed in the patients chart. I agree with the above findings, impression and plan. (Patient seen earlier today. Signature stamp does not reflect patient encounter time.). - Tylor Weller MD Subjective Gastrointestinal/Abdominal: Reports: no symptoms Subjective Generalized pain Denies any nausea vomiting Objective Last 24 Hour Vital Signs Date Time Temp Pulse Resp B/P (MAP) Pulse Ox O2 Delivery O2 Flow Rate FiO2 06/26/19 09:03 97.2 06/26/19 09:00 Room Air 06/26/19 08:00 97.2 92 20 130/94 (106) 95 06/26/19 04:00 97.0 92 20 132/80 (97) 100 06/25/19 21:00 Room Air 06/25/19 20:00 97.7 99 20 118/75 (89) 97 06/25/19 16:49 97.9 98 18 114/73 (87) 96 06/25/19 12:00 98.6 103 20 129/87 (101) 97 Intake and Output 06/25/19 06/26/19 19:00 07:00 Intake Total 1600 ml 3180 ml Balance 1600 ml 3180 ml Intake Oral 1600 ml 3180 ml # Voids 4 # Bowel Movements 1 1 Height (Feet): 5 Height (Inches): 10.00 Weight (Pounds): 284 General Appearance: WD/WN, no apparent distress, alert Cardiovascular: normal rate Respiratory/Chest: normal breath sounds, no respiratory distress Abdominal Exam: normal bowel sounds, non tender, soft Extremities: normal range of motion, non-tender Noreen Alvarez NP Jun 26, 2019 11:17
--- NOTE | 2019-06-26 11:45 | Infectious Diseases Prog Note ---
Assessment/Plan Assessment/Plan 1. Urinary tract infection/hematuria due to GI/ fistula. -UCx E.coli (S Ancef) 2. History of Crohn disease. 3. Diarrhea due to Crohn's, C difficile negative. PLAN: 1. Start Keflex and Flagyl for 10 days total ( End date 07/03/19) -06/26 SP Ancef #4 -06/23 SP Ceftriaxone #1 2. Monitor CBC and BMP. Thank you, Dr. Young Hicks for allowing me to participate in the care of this patient. I will follow the patient during this hospitalization. Subjective Allergies: Coded Allergies: CODEINE (Unverified Allergy, Intermediate, 04/23/19) FISH CONTAINING PRODUCTS (Verified Allergy, Unknown, 06/25/19) HALOPERIDOL (Verified Allergy, Unknown, 06/18/19) MORPHINE (Verified Allergy, Unknown, 04/29/16) PROCHLORPERAZINE (Verified Allergy, Unknown, 04/29/16) Subjective afebrile no leukocytosis refusing IV abx Objective Vital Signs Last 24 Hour Vital Signs Date Time Temp Pulse Resp B/P (MAP) Pulse Ox O2 Delivery O2 Flow Rate FiO2 06/26/19 09:03 97.2 06/26/19 09:00 Room Air 06/26/19 08:00 97.2 92 20 130/94 (106) 95 06/26/19 04:00 97.0 92 20 132/80 (97) 100 06/25/19 21:00 Room Air 06/25/19 20:00 97.7 99 20 118/75 (89) 97 06/25/19 16:49 97.9 98 18 114/73 (87) 96 06/25/19 12:00 98.6 103 20 129/87 (101) 97 Height (Feet): 5 Height (Inches): 10.00 Weight (Pounds): 284 Objective GEN; NAD HEENT: NCAT, MMM, No pale conjunctivae. No scleral icterus. CHEST: CTAB, No W HEART: S1 and S2. RRR ABDOMEN: Soft. Obese. Microbiology Date/Time Source Procedure Growth Status 06/24/19 12:00 Urine,Clean Catch Urine Culture - Preliminary Gram Positive Cocci Resulted Current Medications Medications (Trade) Dose Ordered Sig/Kalani Route PRN Reason Start Time Stop Time Status Last Admin Dose Admin Aripiprazole (Abilify) 5 mg DAILY ORAL 06/19/19 09:00 07/19/19 08:59 06/26/19 08:25 Bupropion HCl (Wellbutrin SR) 150 mg BID ORAL 06/19/19 09:00 07/19/19 08:59 06/26/19 08:25 Cefazolin Sodium 1 gm/Sodium Chloride 55 ml @ 110 mls/hr Q8HR IVP 06/23/19 22:00 06/30/19 21:59 06/25/19 13:52 Diphenhydramine HCl (Benadryl) 25 mg Q6H PRN IVP Itching 06/18/19 23:00 07/18/19 22:59 06/26/19 06:03 Hydromorphone HCl (Dilaudid) 2 mg Q3H PRN IVP For Pain 06/25/19 13:45 07/02/19 13:44 06/26/19 08:33 Mesalamine (Asacol) 800 mg THREE TIMES A DAY ORAL 06/20/19 09:00 07/20/19 08:59 06/26/19 08:28 Metronidazole (Flagyl) 500 mg Q8HR ORAL 06/23/19 22:00 06/30/19 21:59 06/26/19 06:19 Montelukast Sodium (Singulair) 10 mg DAILY ORAL 06/19/19 09:00 07/19/19 08:59 06/26/19 08:27 Ondansetron HCl (Zofran) 4 mg Q6H PRN IVP Nausea & Vomiting 06/19/19 01:45 07/19/19 01:44 06/24/19 14:04 Pantoprazole (Protonix) 40 mg DAILY ORAL 06/21/19 09:00 07/21/19 08:59 06/26/19 08:24 Quetiapine Fumarate (SEROquel) 100 mg DAILY ORAL 06/19/19 09:00 07/19/19 08:59 06/26/19 08:26 Tamsulosin HCl (Flomax) 0.4 mg BEDTIME ORAL 06/20/19 21:00 07/20/19 20:59 06/25/19 20:44 Brianna Proctor M.D. Jun 26, 2019 11:45
--- NOTE | 2019-06-26 11:52 | NUR ---
NURSE NOTES: pt DC home with community engagement manager. pt stable condition.
[2019-06-26] MEDS ORDERED: Cephalexin 500mg cap ORAL SCH (13:00)
--- NOTE | 2019-06-27 11:22 | NUR ---
*-*INSURANCE *-* ALL AVAILABLE CLINICALS AND REVIEWS HAVE BEEN FAXED TO: NANDINI AJRA/BELL HILTON: SABINA REF# [id number] P: [phone] F: [phone]
--- NOTE | 2019-06-28 09:10 | Discharge Summary ---
Discharge Summary Discharge Summary _ DATE OF ADMISSION: 06/18/2019 DATE OF DISCHARGE: 06/26/2019 DISCHARGED BY: Dr. Hicks REASON FOR ADMISSION: 49 years old male, with past medical history of hypertension, Crohn's disease, previous bowel surgery , including partial rectosigmoid resection and small bowel resection, status post appendectomy, anxiety, identifying himself as female , presented to emergency department for evaluation. Patient reported hearing voices. Patient apparently took several pills of Wellbutrin to hurt himself earlier that day. Patient reported taking psychiatric medications, but stated that they did not help him. Upon evaluation patient was slightly tachycardic , otherwise vital signs were stable. No leukocytosis , stable hemoglobin and hematocrit. Potassium 5.4. BUN 26, creatinine 1.9. Glucose 102. Stable LFT. Serum salicylate, Tylenol, and alcohol levels were all negative. Urine toxicology screen was positive for cocaine and marijuana . Patient admitted for further management. CONSULTANTS: hospitalist Dr. Kelley ID specialist Dr. Ding GI specialist Dr. Weller overhead crane technician Dr. Coronado urologist Dr. Goff psychiatrist [facility] COURSE: Patient admitted to the floor and started on the IV fluids. Urologist seen and evaluated patient , and recommended continue antibiotic as per ID specialist recommendation. 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 No history of stones. Urologist recommended after infection treated , repeat urine culture. Compliance Field Technician followed. Renal parameters and electrolytes were closely monitored , electrolytes corrected as needed, and nephrotoxins were avoided. Patient initially declined IV fluids, but then agreed to it. Creatinine from 1.9 down to 1.1 . BUN from 26 down to 15. Acute kidney injury resolved. Patient exhibited intractable diarrhea. GI specialist followed. Hemoglobin and hematocrit were closely monitored and showed some trend down . Anemia work-up was performed.TSH within normal limits , B12 and folate stable. Iron panel revealed sufficient iron. GI prophylaxis provided. Prior to discharge hemoglobin 10.2 , hematocrit 31.1. Stool for occult blood was negative. Stool for C. difficile was negative . No plans for any GI procedure , given that there was no evidence to suggest Crohn disease flare. Patient slowly started on diet , which was advanced as tolerated. Symptomatic treatment provided. Pain management was addressed. Mesalamine continued. Patient was able to tolerate diet. Urine culture revealed E. coli , repeated urine culture revealed E. coli and Enterococcus faecalis. Patient completed IV antibiotics while in the hospital and was transitioned to oral antibiotics to complete total of 10 days treatment as outpatient as per ID specialist recommendation. Psychiatrist followed. Psychiatric medication regimen was optimized. Reality orientation and supportive therapy provided. Per psychiatrist, after staying in the hospital , patient was no danger to himself or others. Patient clinically stabilized and was ready for discharge home. FINAL DIAGNOSES: Urinary tract infection/hematuria with E. coli Crohn's disease Intractable diarrhea , possibly to Crohn's disease Renal failure, acute on chronic -resolved Possible dehydration Cocaine and cannabis abuse Bipolar disorder Cluster B personality Anemia of chronic disease Hearing voices DISCHARGE MEDICATIONS: List of medication and prescription provided to patient.. DISCHARGE INSTRUCTIONS: Patient was discharged home . Follow up with primary care provider in one week. I have been assigned to dictate discharge summary for this account. I was not involved in the patient's management. Sabina Pickard NP Jun 28, 2019 09:09
--- NOTE | 2019-06-30 10:42 | NUR ---
*-*INSURANCE *-* DISCHARGE SUMMARY HAS BEEN FAXED TO: NANDINI JARA/BELL MCCLELLANM: SABINA REF# [id number] P: [phone] F: [phone]
== END 2019-06-26 11:51 | disposition home or self-care (01) | DRG 469 ==
LOC: EMR 13:20 → 3E 18:23 → EDBEDREQ 21:31 → 4E 06-24 11:04
DX: N17.9 Acute kidney failure, unspecified (principal); K50.90 Crohn's disease, unspecified, without complications; R45.851 Suicidal ideations; N39.0 Urinary tract infection, site not specified; F20.9 Schizophrenia, unspecified; B96.20 Unspecified Escherichia coli [E. coli] as the cause of diseases classified elsewhere; Z88.6 Allergy status to analgesic agent; F14.10 Cocaine abuse, uncomplicated; F12.10 Cannabis abuse, uncomplicated; N18.9 Chronic kidney disease, unspecified; F31.9 Bipolar disorder, unspecified; R31.9 Hematuria, unspecified; F64.9 Gender identity disorder, unspecified; F60.3 Borderline personality disorder; N36.0 Urethral fistula
CPT/HCPCS: 36415; 80048; 80053; 80307; 80329; 81001; 82270; 82550; 82607; 82728; 82746; 83036; 83540; 83550; 83735; 84100; 84300; 84443; 84550; 85025; 86140; 87081; 87086; 87181; 87324; 89050; 96360; 97803; 99285; J2405